=== PATIENT | male | born 1950 | race Caucasian/White ===

== ENCOUNTER → 2017-02-16 | Outpatient (CLI) | payer MEDICARE, MEDICAID ==
[2017-02-16 10:24] LABS: APPEARANCE,URINE CLEAR; BILIRUBIN,URINE NEGATIVE (NEGATIVE); GLUCOSE, URINE NEGATIVE (NEGATIVE); KETONES,URINE NEGATIVE (NEGATIVE); LEUKOCYTE ESTERASE,URINE NEGATIVE (NEGATIVE); NITRITE,URINE NEGATIVE (NEGATIVE); PROTEIN,URINE 100 mg/dL (NEGATIVE); URINE SPECIFIC GRAVITY 1.014; UROBILINOGEN,URINE NEGATIVE mg/dL (<2.0)
[2017-02-16 11:00] LABS: ANION GAP 9 (5-19); BLOOD UREA NITROGEN 24 mg/dL (7-20); CALCIUM 9.6 mg/dL (8.4-10.2); CARBON DIOXIDE 24 mmol/L (22-30); CHLORIDE 109 mmol/L (98-107); CREATININE RESULT 1.28 mg/dL (0.52-1.25); GLUCOSE 92 mg/dL (75-110); POTASSIUM 4.9 mmol/L (3.6-5.0); SODIUM 142.1 mmol/L (137-145)
[2017-02-17 12:38] LABS: CREATININE URINE 109.3 mg/dL (Not Estab.)
== END ==
LOC: OD 09:07
PROVIDERS: ATTEND Internal Medicine Nephrology
DX: I10 Essential (primary) hypertension (principal); R80.1 Persistent proteinuria, unspecified
CPT/HCPCS: 36415; 80048; 81001; 82570; 84156

== ENCOUNTER → 2017-04-19 | Outpatient (CLI) | payer MEDICARE, MEDICAID ==
[2017-04-19 09:58] LABS: APPEARANCE,URINE CLEAR; BILIRUBIN,URINE NEGATIVE (NEGATIVE); GLUCOSE, URINE NEGATIVE (NEGATIVE); KETONES,URINE NEGATIVE (NEGATIVE); LEUKOCYTE ESTERASE,URINE NEGATIVE (NEGATIVE); NITRITE,URINE NEGATIVE (NEGATIVE); PROTEIN,URINE 100 mg/dL (NEGATIVE); URINE SPECIFIC GRAVITY 1.011; UROBILINOGEN,URINE NEGATIVE mg/dL (<2.0)
[2017-04-19 10:13] LABS: URINE CREATININE 89.5 mg/dL (22-328); URINE PROTEIN 180.3 mg/dL (<12)
[2017-04-19 10:27] LABS: ANION GAP 9 (5-19); BLOOD UREA NITROGEN 24 mg/dL (7-20); CALCIUM 9.7 mg/dL (8.4-10.2); CARBON DIOXIDE 25 mmol/L (22-30); CHLORIDE 104 mmol/L (98-107); CREATININE RESULT 1.19 mg/dL (0.52-1.25); GLUCOSE 123 mg/dL (75-110); SODIUM 137.8 mmol/L (137-145)
== END ==
LOC: OD 09:09
PROVIDERS: ATTEND Internal Medicine Nephrology
DX: R80.9 Proteinuria, unspecified (principal); I10 Essential (primary) hypertension
CPT/HCPCS: 36415; 80048; 81001; 82570; 84156

== ENCOUNTER → 2017-06-22 | Outpatient (CLI) | payer MEDICARE, MEDICAID ==
[2017-06-22 11:44] LABS: APPEARANCE,URINE CLEAR; BILIRUBIN,URINE NEGATIVE (NEGATIVE); GLUCOSE, URINE NEGATIVE (NEGATIVE); KETONES,URINE NEGATIVE (NEGATIVE); LEUKOCYTE ESTERASE,URINE NEGATIVE (NEGATIVE); NITRITE,URINE NEGATIVE (NEGATIVE); PROTEIN,URINE 30 mg/dL (NEGATIVE); URINE SPECIFIC GRAVITY 1.004; UROBILINOGEN,URINE NEGATIVE mg/dL (<2.0)
[2017-06-22 12:08] LABS: ANION GAP 8 (5-19); BLOOD UREA NITROGEN 19 mg/dL (7-20); CARBON DIOXIDE 21 mmol/L (22-30); CHLORIDE 100 mmol/L (98-107); CREATININE RESULT 1.13 mg/dL (0.52-1.25); GLUCOSE 105 mg/dL (75-110); POTASSIUM 4.9 mmol/L (3.6-5.0); SODIUM 129.3 mmol/L (137-145)
[2017-06-22 12:09] LABS: URINE CREATININE 29.4 mg/dL (22-328); URINE PROTEIN 56.8 mg/dL (<12)
== END ==
LOC: OD 10:28
PROVIDERS: ATTEND Internal Medicine Nephrology
DX: I10 Essential (primary) hypertension (principal); R80.9 Proteinuria, unspecified
CPT/HCPCS: 36415; 80048; 81001; 82570; 84156

== ENCOUNTER → 2017-06-24 | Outpatient (CLI) | payer MEDICARE, MEDICAID | LOC: OD 12:20 | PROVIDERS: ATTEND Internal Medicine Nephrology | DX: Z53.9 Procedure and treatment not carried out, unspecified reason (principal) ==

== ENCOUNTER 2018-09-05 03:21 | Inpatient (IN) | payer MEDICARE, MEDICAID ==
[2018-09-05] MEDS ORDERED: METHYLPREDNISOLONE INJ 125 MG/2 ML SDV IV ONE (03:26)
[2018-09-05] MEDS ORDERED: IPRATROPIUM/ALBUTEROL 0.5-2.5 MG/3 ML AMPUL NEB ONE (03:26)
[2018-09-05] MEDS: MAGNESIUM SULFATE/D5W 1 GM/100 ML RTUPB IV SCH ×2 (03:47→04:15)
[2018-09-05 03:49] LABS: VENOUS BLOOD BASE EXCESS -3.5 mmol/L; VENOUS BLOOD HCO3 22.3 mmol/L (20-32); VENOUS BLOOD PCO2 42.6 mmHg (35-63); VENOUS BLOOD PH 7.34 (7.30-7.42)
[2018-09-05 03:50] LABS: ABSOLUTE EOSINOPHILS # (AUTO) 0.2 10^3/uL (0.0-0.6); ABSOLUTE LYMPHOCYTES (AUTO) 1.7 10^3/uL (0.5-4.7); ABSOLUTE MONOCYTES (AUTO) 0.8 10^3/uL (0.1-1.4); ABSOLUTE NEUT (AUTO) 6.1 10^3/uL (1.7-8.2); BASOPHILS % (AUTO) 0.5 % (0-2); EOSINOPHILS % (AUTO) 2.5 % (0-6); HEMATOCRIT 39.1 % (37.9-51.0); HEMOGLOBIN 13.2 g/dL (13.5-17.0); LYMPHOCYTES % (AUTO) 19.2 % (13-45); MEAN CORPUSCULAR HGB CONC 33.7 g/dL (32.0-36.0); MEAN CORPUSCULAR VOLUME 98 fl (80-97); MONOCYTES % (AUTO) 8.6 % (3-13); PLATELET COUNT 181 10^3/uL (150-450); RED CELL DISTRIBUTION WIDTH 12.9 % (11.5-14.0); SEGMENTED NEUTROPHILS % (AUTO) 69.2 % (42-78); TOTAL CELLS COUNTED % (AUTO) 100 %; WHITE BLOOD COUNT 8.8 10^3/uL (4.0-10.5)
[2018-09-05 04:04] LABS: ALANINE AMINOTRANSFERASE 46 U/L (21-72); ALBUMIN 3.6 g/dL (3.5-5.0); ALKALINE PHOSPHATASE 103 U/L (38-126); ANION GAP 10 (5-19); ASPARTATE AMINO TRANSFERASE 40 U/L (17-59); BILIRUBIN,DIRECT 0.3 mg/dL (0.0-0.4); BILIRUBIN,TOTAL 0.7 mg/dL (0.2-1.3); BLOOD UREA NITROGEN 25 mg/dL (7-20); CARBON DIOXIDE 21 mmol/L (22-30); CHLORIDE 111 mmol/L (98-107); GLUCOSE 126 mg/dL (75-110); POTASSIUM 4.4 mmol/L (3.6-5.0); SODIUM 141.7 mmol/L (137-145); TOTAL PROTEIN 6.7 g/dL (6.3-8.2)
--- NOTE | 2018-09-05 04:39 | RADIOLOGY REPORT (SQ) ---
CLINICAL HISTORY: dyspnea COMPARISON: None. TECHNIQUE: XR CHEST 1 VIEW 09/05/2018 3:26 AM CDT FINDINGS: Cardiac silhouette is enlarged. There is a large right basilar consolidation. There are small pleural effusions. There is no pneumothorax. There are no acute osseous findings. IMPRESSION: Right basilar pneumonia.
[2018-09-05] MEDS ORDERED: LEVOFLOXACIN 750 MG/D5W RTU 750 MG/150 ML RTUPB IV ONE (04:40)
--- NOTE | 2018-09-05 05:04 | ER Document Report ---
ED General - General Chief Complaint: Breathing Difficulty Stated Complaint: RESPIRATORY DISTRESS Time Seen by Provider: 09/05/18 03:26 Notes: Patient is a 68-year-old male who presents with complaint of difficulty breathing and wheezing. Symptoms started to the. No fevers. No vomiting. No diarrhea. No abdominal pain. He is a smoker. He says he has had similar symptoms once or twice in the past. Paramedics were called. They said his oxygenation was 89-89% on room air however he was in severe distress and his skin was mottled. They therefore gave him a DuoNeb treatment. Denies chest pain. He has no other complaints at this time. TRAVEL OUTSIDE OF THE [place] IN LAST 30 DAYS: No - Related Data Allergies/Adverse Reactions: No Known Allergies Allergy (Unverified 09/05/18 03:59) Past Medical History - Social History Smoking Status: Current Every Day Smoker Chew tobacco use (# tins/day): No Frequency of alcohol use: Occasional Drug Abuse: None Family History: Reviewed & Not Pertinent Patient has suicidal ideation: No Patient has homicidal ideation: No Pulmonary Medical History: Reports: Hx COPD Renal/ Medical History: Denies: Hx Peritoneal Dialysis Past Surgical History: Reports: Hx Abdominal Surgery - CA Review of Systems - Review of Systems Notes: My Normal Review Basic REVIEW OF SYSTEMS: CONSTITUTIONAL : Fever EENT: Denies eye, ear, throat, or mouth pain or symptoms. Denies nasal or sinus congestion. CARDIOVASCULAR: Denies chest pain. RESPIRATORY: Difficulty breathing and wheezing GASTROINTESTINAL: Denies abdominal pain. Denies nausea, vomiting, or diarrhea. MUSCULOSKELETAL: Denies neck or back pain or joint pain or swelling. SKIN: Denies rash or skin lesions. NEUROLOGICAL: Denies altered mental status or loss of consciousness. ALL OTHER SYSTEMS REVIEWED AND NEGATIVE. Physical Exam - Vital signs Vitals: Resp Pulse Ox 22 H 98 09/05/18 03:26 09/05/18 03:26 - Notes Notes: General Appearance: Well nourished, alert, cooperative, moderate acute distress , no obvious discomfort. Vitals: reviewed, See vital signs table. Head: no swelling or tenderness to the head Eyes: PERRL, EOMI, Conjuctiva clear Mouth: No decreasd moisture Throat: No tonsillar inflammation, No airway obstruction, No lymphadenopathy Lungs: Diffuse wheezing with poor air exchange. Has accessory muscle use. Heart: Tachycardic rate, Regular rythm, No murmur, no rub Abdomen: Normal BS, soft, No rigidity, No abdominal tenderness, No guarding, no rebound, no abdominal masses, no organomegaly Extremities: good pulses in all extremities, no swelling or tenderness in the extremities, 1+ bilateral lower extremity edema. Skin: warm, dry, appropriate color, no rash Neuro: speech clear, oriented x 3, normal affect, responds appropriately to questions. Course - Re-evaluation Re-evalutation: 09/05/18 05:07 Patient's breathing is much improved after being placed on the BiPAP. Breathing treatment has helped. Magnesium and solu-Medrol also helped however patient still requiring BiPAP. His chest x-ray shows a pneumonia on the right side. I will give him Levaquin. I am waiting to hear back from the hospitalist to discuss potential admission. Dictation of this chart was performed using voice recognition software; therefore, there may be some unintended grammatical errors. 09/05/18 05:11 I spoke with the hospitalist, Dr. Rudolph, who agrees to evaluate the patient for admission or pass on admission to the day team. - Vital Signs Vital signs: Temp Pulse Resp BP Pulse Ox 23 H 181/69 H 97 09/05/18 04:01 09/05/18 04:00 09/05/18 04:01 - Laboratory Result Diagrams: 09/05/18 03:30 09/05/18 03:30 Laboratory results interpreted by me: 09/05/18 09/05/18 03:30 03:30 RBC 4.00 L Hgb 13.2 L MCV 98 H Chloride 111 H Carbon Dioxide 21 L BUN 25 H Est GFR (Non-Af Amer) 57 L Glucose 126 H - EKG Interpretation by Me Additional EKG results interpreted by me: 09/05/18 04:55 EKG #1 is reviewed and interpreted by me. EKG shows sinus tachycardia with a rate of 106 bpm. Patient has some ST segment depression in the lateral precordial leads with what appears to be LVH. I suspect ST segment depressions chronic related to the LVH. No old EKG for comparison. OH interval, QRS duration, QTc intervals are within normal range. EKG #2 is reviewed and interpreted by me. EKG shows sinus rhythm with rate of 97 bpm. Patient has the same findings of mild ST segment depression in lateral precordial leads with associated LVH. OH interval is slightly prolonged. QRS duration QTc intervals are within normal range. Discharge - Discharge Clinical Impression: COPD (chronic obstructive pulmonary disease) Qualifiers: COPD type: unspecified COPD Qualified Code(s): J44.9 - Chronic obstructive pulmonary disease, unspecified Pneumonia Qualifiers: Pneumonia type: due to unspecified organism Laterality: right Lung location: lower lobe of lung Qualified Code(s): J18.1 - Lobar pneumonia, unspecified organism Condition: Stable Disposition: ADMITTED OBSERVATION Admitting Provider: Hospitalist Unit Admitted: IMCU Referrals: SHANELL BEE MD [Primary Care Provider] - Follow up as needed
[2018-09-05] MEDS ORDERED: ALBUTEROL SULFATE 0.083% NEB 2.5 MG/3 ML AMPUL NEB ONE (05:07)
[2018-09-05] MEDS ORDERED: MAG HYDROX/AL HYDROX/SIMETH SUSP 30 ML UDCUP PO PRN (05:14)
[2018-09-05] MEDS ORDERED: PROMETHAZINE HCL INJ 25 MG/1 ML VIAL IV PRN (05:14)
[2018-09-05] MEDS ORDERED: ACETAMINOPHEN 325 MG TABLET PO PRN (05:14)
[2018-09-05] MEDS ORDERED: IPRATROPIUM/ALBUTEROL 0.5-2.5 MG/3 ML AMPUL NEB PRN (05:14)
[2018-09-05] MEDS ORDERED: PROMETHAZINE HCL 25 MG TABLET PO PRN (05:14)
[2018-09-05] MEDS ORDERED: AZITHROMYCIN INJ 500 MG VIAL IV ONE (05:19)
--- NOTE | 2018-09-05 05:55 | PDOC H&P ---
History of Present Illness Admission Date/PCP: 09/05/18 05:21 SHANELL BEE MD Patient complains of: Shortness of breath History of Present Illness: GERONIMO BROWN is a 68 year old male who comes to the emergency department with symptoms since Wednesday afternoon, initially he was unable to lay flat, later on was noted progressive shortness of breath associated with wheezing, pleuritic chest pain, cough with sputum. Denies fever, chills, nausea or vomiting. Upon arrival of paramedics patient was saturating 89% on room air and was on evidence of respiratory distress, patient was placed on BiPAP and was saturating 98%, upon arrival to our facility the patient was still in respiratory distress and was initiated on BiPAP. Apparently patient has similar symptomatology in the past, denies having asthma or COPD however the patient is active smoker. In the emergency department given DuoNeb nebulizer treatments, IV steroids and IV fluids. By the time I went to evaluate him he is comfortable on BiPAP. Chest x-ray shows right basilar pneumonia. Past Medical History Cardiac Medical History: Reports: Myocardial Infarction - 1979, Hyperlipidema, Hypertension Neurological Medical History: Reports: Ischemic CVA Malignancy Medical History: Reports: Colorectal Cancer - Status post partial colectomy Past Surgical History Past Surgical History: Reports: Other - Partial colectomy 3 years ago for colon cancer Social History Smoking Status: Current Every Day Smoker - 1 pack/day Frequency of Alcohol Use: Heavy - 5-6 beers a day Hx Recreational Drug Use: No Hx Prescription Drug Abuse: No Past Social History Note: Lives with his who is at the bedside Family History Family History: Reviewed & Not Pertinent Family History: Markable for 2 brothers with coronary arterial disease and stents placed Parental Family History Reviewed: Yes - As above Children Family History Reviewed: NA Sibling(s) Family History Reviewed.: NA Medication/Allergy Allergies/Adverse Reactions: No Known Allergies Allergy (Unverified 09/05/18 03:59) Review of Systems Review of Systems: As outlined above, others negative Physical Exam Vital Signs: Temp Pulse Resp BP Pulse Ox 23 H 181/69 H 97 09/05/18 04:01 09/05/18 04:00 09/05/18 04:01 Additional comments: General appearance: Disheveled, alert and cooperative, and appears to be in no acute distress Head: Normocephalic Eyes: PEERL, EOMI, vision is grossly intact. Ears: External auditory canal and tympanic membranes clear, hearing grossly intact. Nose: No nasal discharge. Throat: Oral cavity and pharynx normal. No inflammation, swelling, exudate or lesions. Neck: Neck supple, nontender without lymphadenopathy, masses or thyromegaly. Cardiac: Normal S1 and S2. No S3, S4 or murmurs. Rhythm is regular and tachycardic. There is no peripheral edema, cyanosis or pallor. Extremities are warm and well perfused. Capillary refill is less than 2 seconds. No carotid bruits. Lungs: Patient has bilateral moderate expiratory wheezing with right lower lobe crackles, do not appreciate rhonchi. Not using accessory muscles. Abdomen: Positive bowel sounds. Soft. Nondistended, nontender. No guarding or rebound. No masses. No hepatosplenomegaly Extremities: No significant deformity or joint abnormality. No edema. Peripheral pulses intact. No varicosities. Neurological: Cranial nerves II through XII grossly intact. Strength and sensation symmetric and intact throughout. Reflexes 2+ throughout. Skin: Skin normal color, texture and turgor with no lesions or eruptions, warm and dry. Psychiatric: The mental examination revealed the patient was oriented to person , place, and time. The patient was able to demonstrate good judgment on recent , without hallucinations, abnormal affect or abnormal behaviors. Results Laboratory Results: 09/05/18 09/05/18 09/05/18 03:30 03:30 03:30 WBC 8.8 RBC 4.00 L Hgb 13.2 L Hct 39.1 MCV 98 H MCH 33.0 MCHC 33.7 RDW 12.9 Plt Count 181 Seg Neutrophils % 69.2 Lymphocytes % 19.2 Monocytes % 8.6 Eosinophils % 2.5 Basophils % 0.5 Absolute Neutrophils 6.1 Absolute Lymphocytes 1.7 Absolute Monocytes 0.8 Absolute Eosinophils 0.2 Absolute Basophils 0.0 VBG pH 7.34 VBG pCO2 42.6 VBG HCO3 22.3 VBG Base Excess -3.5 Sodium 141.7 Potassium 4.4 Chloride 111 H Carbon Dioxide 21 L Anion Gap 10 BUN 25 H Creatinine 1.25 Est GFR ( Amer) > 60 Est GFR (Non-Af Amer) 57 L Glucose 126 H Calcium 9.0 Total Bilirubin 0.7 Direct Bilirubin 0.3 AST 40 ALT 46 Alkaline Phosphatase 103 Total Protein 6.7 Albumin 3.6 Impressions: Chest X-Ray 09/05/18 03:26 IMPRESSION: Right basilar pneumonia. Assessment & Plan - Diagnosis (1) Community acquired pneumonia Qualifiers: Laterality: right Lung location: lower lobe of lung Qualified Code(s): J18.1 - Lobar pneumonia, unspecified organism Is this a current diagnosis for this admission?: Yes Plan: Patient comes with progressive respiratory symptoms, chest x-ray shows right basilar pneumonia. We will place the patient on IV Rocephin and IV azithromycin. RT consult. Nebulizer treatments as needed. We will continue for now with BiPAP. Solu-Medrol 60 mg every 8 hours. Incentive spirometry. Pulmonary toilet. Oxygen protocol via nasal cannula when appropriate. Sputum culture. Please follow blood cultures. Patient probably has in addition COPD exacerbation, however he denies having this diagnosis, he might need pulmonary function test. (2) Coronary artery disease Is this a current diagnosis for this admission?: Yes Plan: Continue with home medications. Tells me that he is not taking aspirin because produce rectal bleeding. Last cardiac catheterization 6 months ago which shows mitral regurgitation. (3) Hypertension Is this a current diagnosis for this admission?: Yes Plan: Blood pressure is not well controlled, in the ED 181/69, likely secondary to his acute respiratory distress. Will resume his home antihypertensive and place him on Lopressor IV as needed. (4) Tobacco dependence Is this a current diagnosis for this admission?: Yes Plan: Nicotine patch 21 mg daily. (5) Acute respiratory failure with hypoxia Is this a current diagnosis for this admission?: Yes Plan: Currently on BiPAP - Time Time Spent: 50 to 70 Minutes - Inpatient Certification Based on my medical assessment, after consideration of the patient's comorbidities, presenting symptoms, or acuity I expect that the services needed warrant INPATIENT care.: Yes I certify that my determination is in accordance with my understanding of Medicare's requirements for reasonable and necessary INPATIENT services [42 CFR 412.3e].: Yes Medical Necessity: Risk of Complication if Not Cared For in Hospital
[2018-09-05] MEDS ORDERED: METOPROLOL TARTRATE PF/INJ 5 MG/5 ML SDV IV PRN (05:56)
[2018-09-05] MEDS ORDERED: NICOTINE 21 MG/24 HR PATCH.TD24 TD PRN (05:56)
[2018-09-05] MEDS ORDERED: CEFTRIAXONE 2 GM/D5W RTU 2 GM/50 ML RTUPB IV SCH (06:00)
[2018-09-05] MEDS ORDERED: AZITHROMYCIN 500 MG in DEXTROSE 5%-WATER 250 ML IV ONE (07:00)
[2018-09-05] MEDS: NORMAL SALINE 1000 ML 1,000 ML IV PRN ×2 (07:06→19:30)
[2018-09-05] MEDS: METHYLPREDNISOLONE INJ 125 MG/2 ML SDV IV SCH ×3 (07:31→21:39)
--- NOTE | 2018-09-05 08:10 | EKG REPORT ---
SEVERITY:- ABNORMAL ECG - SINUS TACHYCARDIA PROBABLE LEFT ATRIAL ABNORMALITY LVH WITH SECONDARY REPOLARIZATION ABNORMALITY ANTERIOR Q WAVES, POSSIBLY DUE TO LVH : Confirmed by: Lainey Field 05-Sep-2018 08:09:28
--- NOTE | 2018-09-05 08:10 | EKG REPORT ---
SEVERITY:- ABNORMAL ECG - SINUS RHYTHM LVH WITH SECONDARY REPOLARIZATION ABNORMALITY ANTERIOR Q WAVES, POSSIBLY DUE TO LVH : Confirmed by: Lainey Field 05-Sep-2018 08:09:12
[2018-09-05] MEDS: AZITHROMYCIN 500 MG in DEXTROSE 5%-WATER 250 ML IV SCH (08:46)
[2018-09-05] MEDS: ENOXAPARIN SODIUM INJ 40 MG/0.4 ML DISP.SYRIN SUBCUT SCH (10:18)
[2018-09-05] MEDS: CEFTRIAXONE SODIUM 2,000 MG in DEXTROSE 5%-WATER 100 ML IV SCH (10:19)
[2018-09-05] MEDS ORDERED: LISINOPRIL 30 MG PO SCH (12:00)
[2018-09-05] MEDS ORDERED: ATORVASTATIN CALCIUM 20 MG TABLET PO SCH (12:30)
[2018-09-05] MEDS: ATORVASTATIN CALCIUM 10 MG TABLET PO SCH (12:36)
[2018-09-05] MEDS: LISINOPRIL 10 MG TABLET PO SCH (12:36)
[2018-09-05] MEDS: METOPROLOL SUCCINATE 50 MG TAB.SR.24H PO SCH (12:37)
[2018-09-06 04:46] LABS: ABSOLUTE LYMPHOCYTES (AUTO) 0.7 10^3/uL (0.5-4.7); ABSOLUTE MONOCYTES (AUTO) 0.5 10^3/uL (0.1-1.4); ABSOLUTE NEUT (AUTO) 8.1 10^3/uL (1.7-8.2); BASOPHILS % (AUTO) 0.2 % (0-2); HEMATOCRIT 35.2 % (37.9-51.0); LYMPHOCYTES % (AUTO) 7.1 % (13-45); MEAN CORPUSCULAR HEMOGLOBIN 33.1 pg (27.0-33.4); MEAN CORPUSCULAR VOLUME 97 fl (80-97); MONOCYTES % (AUTO) 5.2 % (3-13); PLATELET COUNT 143 10^3/uL (150-450); RED BLOOD COUNT 3.61 10^6/uL (4.35-5.55); RED CELL DISTRIBUTION WIDTH 13.1 % (11.5-14.0); SEGMENTED NEUTROPHILS % (AUTO) 87.5 % (42-78); TOTAL CELLS COUNTED % (AUTO) 100 %; WHITE BLOOD COUNT 9.3 10^3/uL (4.0-10.5)
[2018-09-06 05:05] LABS: ALANINE AMINOTRANSFERASE 38 U/L (21-72); ALBUMIN 2.9 g/dL (3.5-5.0); ALKALINE PHOSPHATASE 75 U/L (38-126); ANION GAP 8 (5-19); ASPARTATE AMINO TRANSFERASE 30 U/L (17-59); BILIRUBIN,TOTAL 0.4 mg/dL (0.2-1.3); BLOOD UREA NITROGEN 26 mg/dL (7-20); CALCIUM 8.9 mg/dL (8.4-10.2); CARBON DIOXIDE 20 mmol/L (22-30); CHLORIDE 110 mmol/L (98-107); GLUCOSE 138 mg/dL (75-110); SODIUM 137.5 mmol/L (137-145)
[2018-09-06 05:06] LABS: BILIRUBIN,DIRECT 0.1 mg/dL (0.0-0.4); TOTAL PROTEIN 5.7 g/dL (6.3-8.2)
[2018-09-06] MEDS: METHYLPREDNISOLONE INJ 125 MG/2 ML SDV IV SCH ×2 (05:45→15:46)
[2018-09-06] MEDS: NORMAL SALINE 1000 ML 1,000 ML IV PRN (05:45)
[2018-09-06] MEDS: AZITHROMYCIN 500 MG in DEXTROSE 5%-WATER 250 ML IV SCH (07:54)
[2018-09-06] MEDS: CEFTRIAXONE SODIUM 2,000 MG in DEXTROSE 5%-WATER 100 ML IV SCH (10:57)
[2018-09-06] MEDS: ENOXAPARIN SODIUM INJ 40 MG/0.4 ML DISP.SYRIN SUBCUT SCH (10:57)
[2018-09-06] MEDS: LISINOPRIL 10 MG TABLET PO SCH (10:57)
[2018-09-06] MEDS: ATORVASTATIN CALCIUM 10 MG TABLET PO SCH (10:58)
[2018-09-06] MEDS: METOPROLOL SUCCINATE 50 MG TAB.SR.24H PO SCH (10:58)
--- NOTE | 2018-09-06 15:33 | PDOC PROGRESS REPORT ---
Subjective Progress Note for:: 09/06/18 Subjective:: Mr. Dahl is a 68 year old male with a PMHhypertension, colon CA with prior colectomy history of CVA, CAD, mitral regurgitation hypertension and hyperlipidemia who presented with progressive SOB, wheezing and productive cough. He was found to have right lower lobe consolidation on chest x-ray and was initially placed on BIPAP. He denies previous diagnosis of COPD or asthma. No acute event overnight. He says he feels better today and his breathing has significantly improved. He is saturating well on 2L of nasal cannula. Denies chest pain. Reason For Visit: CAP Physical Exam Vital Signs: Temp Pulse Resp BP Pulse Ox 97.9 F 72 20 149/59 H 93 09/06/18 11:30 09/06/18 11:30 09/06/18 11:30 09/06/18 11:30 09/06/18 11:30 Intake & Output 09/05/18 09/06/18 09/07/18 06:59 06:59 06:59 Intake Total 3325 587 Output Total 160 Balance 3165 587 Weight 193 lb 9.054 oz General appearance: PRESENT: no acute distress, well-developed, well-nourished Head exam: PRESENT: atraumatic, normocephalic Eye exam: PRESENT: conjunctiva pink, EOMI, PERRLA. ABSENT: scleral icterus Ear exam: PRESENT: normal external ear exam Mouth exam: PRESENT: moist, tongue midline Neck exam: ABSENT: carotid bruit, JVD, lymphadenopathy, thyromegaly Respiratory exam: PRESENT: crackles - crackles on the right base, rhonchi. ABSENT: rales, wheezes Cardiovascular exam: PRESENT: RRR. ABSENT: diastolic murmur, rubs, systolic murmur Pulses: PRESENT: normal dorsalis pedis pul Vascular exam: PRESENT: normal capillary refill GI/Abdominal exam: PRESENT: normal bowel sounds, soft. ABSENT: distended, guarding, mass, organolmegaly, rebound, tenderness Rectal exam: PRESENT: deferred Extremities exam: PRESENT: full ROM. ABSENT: calf tenderness, clubbing, pedal edema Neurological exam: PRESENT: alert, awake, oriented to person, oriented to place , oriented to time, oriented to situation, CN II-XII grossly intact. ABSENT: motor sensory deficit Results Laboratory Results: 09/06/18 04:37 09/06/18 04:37 09/06/18 09/06/18 04:37 04:37 WBC 9.3 RBC 3.61 L Hgb 12.0 L Hct 35.2 L MCV 97 MCH 33.1 MCHC 34.0 RDW 13.1 Plt Count 143 L Seg Neutrophils % 87.5 H Lymphocytes % 7.1 L Monocytes % 5.2 Eosinophils % 0.0 Basophils % 0.2 Absolute Neutrophils 8.1 Absolute Lymphocytes 0.7 Absolute Monocytes 0.5 Absolute Eosinophils 0.0 Absolute Basophils 0.0 Sodium 137.5 Potassium 5.0 Chloride 110 H Carbon Dioxide 20 L Anion Gap 8 BUN 26 H Creatinine 1.19 Est GFR ( Amer) > 60 Est GFR (Non-Af Amer) > 60 Glucose 138 H Calcium 8.9 Total Bilirubin 0.4 AST 30 ALT 38 Alkaline Phosphatase 75 Total Protein 5.7 L Albumin 2.9 L Impressions: Chest X-Ray 09/05/18 03:26 IMPRESSION: Right basilar pneumonia. Assessment & Plan - Diagnosis (1) Community acquired pneumonia Qualifiers: Laterality: right Lung location: lower lobe of lung Qualified Code(s): J18.1 - Lobar pneumonia, unspecified organism Is this a current diagnosis for this admission?: Yes Plan: Chest x-ray shows right lower lobe consolidation. Patient does not have recent hospitalization. He has been off BIPAP and is now saturating well on 2lpm via NC. He did have wheezing upon presentation but denies previous COPD diagnosis. Continue breathing treatments and antibiotics. Wean off O2 today as tolerated. Switch solumedrol to prednisone. (2) Hypertension Is this a current diagnosis for this admission?: Yes Plan: BP runing in the 140/80s. Continue lisinopril and lopressor. - Time Time Spent with patient: 15-24 minutes
[2018-09-06] MEDS: PREDNISONE 20 MG TABLET PO SCH (17:14)
[2018-09-07] MEDS ORDERED: AZITHROMYCIN 250 MG TABLET PO SCH (08:00)
[2018-09-07 08:58] VITALS: BP 155/48
[2018-09-07] MEDS: ENOXAPARIN SODIUM INJ 40 MG/0.4 ML DISP.SYRIN SUBCUT SCH (09:02)
[2018-09-07] MEDS: METOPROLOL SUCCINATE 50 MG TAB.SR.24H PO SCH (09:03)
[2018-09-07] MEDS: LISINOPRIL 10 MG TABLET PO SCH (09:03)
[2018-09-07] MEDS: PREDNISONE 20 MG TABLET PO SCH (09:03)
[2018-09-07] MEDS: ATORVASTATIN CALCIUM 10 MG TABLET PO SCH (09:03)
[2018-09-07] MEDS: CEFTRIAXONE SODIUM 2,000 MG in DEXTROSE 5%-WATER 100 ML IV SCH (09:03)
--- NOTE | 2018-09-07 09:28 | RADIOLOGY REPORT (SQ) ---
EXAM DESCRIPTION: CHEST SINGLE VIEW COMPLETED DATE/TIME: 09/07/2018 8:07 am REASON FOR STUDY: reasses consolidn COMPARISON: 09/05/2018 AP chest EXAM PARAMETERS: NUMBER OF VIEWS: One view. TECHNIQUE: Single frontal radiographic view of the chest acquired. RADIATION DOSE: NA LIMITATIONS: None. FINDINGS: LUNGS AND PLEURA: Increasing consolidation at the right lung base worrisome for pneumonia. There is now patchy right upper lobe airspace disease. There is now a small right pleural effusion. There are Sanjana lines at both lung bases worrisome for interstitial edema/fluid overload. MEDIASTINUM AND HILAR STRUCTURES: No masses. Contour normal. HEART AND VASCULAR STRUCTURES: Stable mild to moderate cardiomegaly BONES: No acute findings. HARDWARE: None in the chest. OTHER: No other significant finding. IMPRESSION: Increasing right lung consolidation worrisome for pneumonia. New small right pleural effusion Persistent Sanjana lines at both lung bases worrisome for fluid overload or interstitial edema TECHNICAL DOCUMENTATION: JOB ID: [id number] [employer]- All Rights Reserved Reading location - IP/workstation name: [email or web address]
--- NOTE | 2018-09-07 14:25 | PDOC DISCHARGE SUMMARY ---
General - Admit/Disc Date/PCP Admission Date/Primary Care Provider: 09/05/18 05:21 SHANELL BEE MD Discharge Date: 09/07/18 - Discharge Diagnosis (1) Community acquired pneumonia Is this a current diagnosis for this admission?: Yes (2) Hypertension Is this a current diagnosis for this admission?: Yes - Additional Information Prescriptions: Levofloxacin [Levaquin 750 mg Tablet] 750 mg PO DAILY 5 Days #5 tablet Lisinopril [Prinivil] 30 mg PO DAILY #30 tablet Metoprolol Succinate [Toprol XL 100 mg Tablet] 100 mg PO DAILY #30 tab.sr.24h Prednisone [Deltasone 20 mg Tablet] 20 mg PO BID 3 Days #6 tablet Home Medications: Atorvastatin Calcium [Lipitor 20 mg Tablet] 10 mg PO DAILY 09/05/18 Multivitamin [Tab-A-Rosendo (Multiple Vitamin) Tablet] 1 tab PO DAILY 09/05/18 Tizanidine HCl 4 mg PO Q8 PRN 09/05/18 Levofloxacin [Levaquin 750 mg Tablet] 750 mg PO DAILY 5 Days #5 tablet 09/07/18 Lisinopril [Prinivil] 30 mg PO DAILY #30 tablet 09/07/18 Metoprolol Succinate [Toprol XL 100 mg Tablet] 100 mg PO DAILY #30 tab.sr.24h Prednisone [Deltasone 20 mg Tablet] 20 mg PO BID 3 Days #6 tablet 09/07/18 History of Present Illness History of Present Illness: GERONIMO BROWN is a 68 year old male who comes to the emergency department with symptoms since Wednesday afternoon, initially he was unable to lay flat, later on was noted progressive shortness of breath associated with wheezing, pleuritic chest pain, cough with sputum. Denies fever, chills, nausea or vomiting. Upon arrival of paramedics patient was saturating 89% on room air and was on evidence of respiratory distress, patient was placed on BiPAP and was saturating 98%, upon arrival to our facility the patient was still in respiratory distress and was initiated on BiPAP. Apparently patient has similar symptomatology in the past, denies having asthma or COPD however the patient is active smoker. In the emergency department given DuoNeb nebulizer treatments, IV steroids and IV fluids. Hospital Course Hospital Course: Mr. Brown is a 68 year old male with a PMH of hypertension, colon CA with prior colectomy, history of CVA, CAD, mitral regurgitation hypertension and hyperlipidemia who presented with progressive SOB, wheezing and productive cough. He was found to have right lower lobe consolidation on chest x-ray and was initially placed on BIPAP. He denies previous diagnosis of COPD or asthma. He was given Rocephin and azithromycin in the ER and was continued on IV Levaquin. He was switched to nasal cannula. He clinically improved and he was easily weaned off O2 support the next day. He was ambulating fine with no desaturation. He will be sent home on 5 more days of PO Levaquin. He will follow -up with his PCP next for a repeat CXR. Physical Exam Vital Signs: Temp Pulse Resp BP Pulse Ox 97.6 F 71 16 155/48 H 96 09/07/18 07:54 09/07/18 07:54 09/07/18 07:54 09/07/18 07:54 09/07/18 07:54 Intake & Output 09/06/18 09/07/18 09/08/18 06:59 06:59 06:59 Intake Total 3325 3078 100 Output Total 160 Balance 3165 3078 100 Weight 195 lb 5.273 oz General appearance: PRESENT: no acute distress, well-developed, well-nourished Head exam: PRESENT: atraumatic, normocephalic Eye exam: PRESENT: conjunctiva pink, EOMI, PERRLA. ABSENT: scleral icterus Ear exam: PRESENT: normal external ear exam Mouth exam: PRESENT: moist, tongue midline Neck exam: ABSENT: carotid bruit, JVD, lymphadenopathy, thyromegaly Respiratory exam: PRESENT: rales - rales on the right base (significantly improved from yesterday). ABSENT: rhonchi, wheezes Cardiovascular exam: PRESENT: RRR. ABSENT: diastolic murmur, rubs, systolic murmur Pulses: PRESENT: normal dorsalis pedis pul GI/Abdominal exam: PRESENT: normal bowel sounds, soft. ABSENT: distended, guarding, mass, organolmegaly, rebound, tenderness Rectal exam: PRESENT: deferred Neurological exam: PRESENT: alert, awake, oriented to person, oriented to place , oriented to time, oriented to situation, CN II-XII grossly intact. ABSENT: motor sensory deficit Results Laboratory Results: 09/06/18 04:37 09/06/18 04:37 Impressions: Chest X-Ray 09/07/18 07:00 IMPRESSION: Increasing right lung consolidation worrisome for pneumonia. New small right pleural effusion Persistent Sanjana lines at both lung bases worrisome for fluid overload or interstitial edema Qualifiers - * PATIENT BEING DISCHARGED WITH ANY OF THE FOLLOWING DIAGNOSIS: No
== END 2018-09-07 11:28 | disposition home or self-care (01) | DRG 194 ==
LOC: ER 03:21 → OBSVTOIN 05:21 → EH 05:21 → 3S 06:46 → 3N 13:45
PROVIDERS: ADMIT Internal Medicine; ATTEND Internal Medicine
PROC: 5A09457 Assistance with Respiratory Ventilation, 24-96 Consecutive Hours, Continuous Positive Airway Pressure (ICD-10-PCS; principal; 2018-09-05)
PROC: 3E0F73Z Introduction of Anti-inflammatory into Respiratory Tract, Via Natural or Artificial Opening (ICD-10-PCS; 2018-09-05)
DX: J18.1 Lobar pneumonia, unspecified organism (principal); J44.0 Chronic obstructive pulmonary disease with (acute) lower respiratory infection; I10 Essential (primary) hypertension; I25.10 Atherosclerotic heart disease of native coronary artery without angina pectoris; I34.0 Nonrheumatic mitral (valve) insufficiency; E78.00 Pure hypercholesterolemia, unspecified; F17.210 Nicotine dependence, cigarettes, uncomplicated; I25.2 Old myocardial infarction; Z79.899 Other long term (current) drug therapy; Z85.038 Personal history of other malignant neoplasm of large intestine; Z90.49 Acquired absence of other specified parts of digestive tract; Z86.73 Personal history of transient ischemic attack (TIA), and cerebral infarction without residual deficits; Z82.49 Family history of ischemic heart disease and other diseases of the circulatory system
CPT/HCPCS: 36415; 71045; 80053; 82803; 85025; 87040; 87070; 87205; 93005; 93010; 94640; 94660; 94799; 96365; 96375; 99285; J0456; J0696; J1650; J1956; J2930; J3475; J7030; J7060; J7512; J7620

== ENCOUNTER 2020-03-10 12:40 | Inpatient (IN) | payer MEDICARE, MEDICAID ==
[2020-03-10 12:58] LABS: ABSOLUTE LYMPHOCYTES (AUTO) 0.9 10^3/uL (0.5-4.7); ABSOLUTE MONOCYTES (AUTO) 0.5 10^3/uL (0.1-1.4); ABSOLUTE NEUT (AUTO) 6.9 10^3/uL (1.7-8.2); BASOPHILS % (AUTO) 0.4 % (0-2); HEMATOCRIT 30.6 % (37.9-51.0); HEMOGLOBIN 10.6 g/dL (13.5-17.0); LYMPHOCYTES % (AUTO) 11.3 % (13-45); MEAN CORPUSCULAR HEMOGLOBIN 34.5 pg (27.0-33.4); MEAN CORPUSCULAR HGB CONC 34.7 g/dL (32.0-36.0); MEAN CORPUSCULAR VOLUME 100 fl (80-97); PLATELET COUNT 164 10^3/uL (150-450); RED BLOOD COUNT 3.07 10^6/uL (4.35-5.55); RED CELL DISTRIBUTION WIDTH 12.5 % (11.5-14.0); SEGMENTED NEUTROPHILS % (AUTO) 82.3 % (42-78); TOTAL CELLS COUNTED % (AUTO) 100 %; WHITE BLOOD COUNT 8.4 10^3/uL (4.0-10.5)
[2020-03-10 13:02] LABS: ARTERIAL BLOOD BASE EXCESS -10.8 mmol/L; ARTERIAL BLOOD H2CO3 0.73 mmol/L (1.05-1.35); ARTERIAL BLOOD HCO3 13.2 mmol/L (20-24); ARTERIAL BLOOD O2 SATURATION 98.6 % (94-98); ARTERIAL BLOOD PCO2 24.4 mmHg (35-45); ARTERIAL BLOOD PH 7.35 (7.35-7.45); ARTERIAL BLOOD PO2 131.1 mmHg (80-100); ARTERIAL BLOOD TOTAL CO2 13.9 mmol/L (23-27)
[2020-03-10] MEDS ORDERED: ALBUTEROL SULFATE 0.083% NEB 2.5 MG/3 ML AMPUL NEB ONE (13:04)
--- NOTE | 2020-03-10 13:13 | RADIOLOGY REPORT (SQ) ---
EXAM DESCRIPTION: CHEST SINGLE VIEW IMAGES COMPLETED DATE/TIME: 03/10/2020 1:02 pm REASON FOR STUDY: sob COMPARISON: 09/07/2018. EXAM PARAMETERS: NUMBER OF VIEWS: One view. TECHNIQUE: Single frontal radiographic view of the chest acquired. RADIATION DOSE: NA LIMITATIONS: None. FINDINGS: LUNGS AND PLEURA: Chronic interstitial changes. Basilar airspace disease, interval increa se in the left lung base. Presumed right pleural effusion unchanged. MEDIASTINUM AND HILAR STRUCTURES: No masses. Contour normal. HEART AND VASCULAR STRUCTURES: Heart normal in size. Normal vasculature. BONES: No acute findings. HARDWARE: None in the chest. OTHER: No other significant finding. IMPRESSION: BASILAR AIRSPACE DISEASE, INTERVAL WORSENING IN THE LEFT LUNG BASE. TECHNICAL DOCUMENTATION: JOB ID: [id number] [employer]- All Rights Reserved Reading location - IP/workstation name: [facility]
[2020-03-10 13:18] LABS: ARTERIAL BLOOD FIO2 45%
[2020-03-10 13:19] LABS: ALBUMIN 3.4 g/dL (3.5-5.0); ALKALINE PHOSPHATASE 152 U/L (38-126); ANION GAP 13 (5-19); BILIRUBIN,DIRECT 0.5 mg/dL (0.0-0.4); BILIRUBIN,TOTAL 1.3 mg/dL (0.2-1.3); BLOOD UREA NITROGEN 57 mg/dL (7-20); CALCIUM 8.9 mg/dL (8.4-10.2); CARBON DIOXIDE 18 mmol/L (22-30); CHLORIDE 98 mmol/L (98-107); CREATINE KINASE 64 U/L (55-170); GLUCOSE 169 mg/dL (75-110); POTASSIUM 5.2 mmol/L (3.6-5.0); TOTAL PROTEIN 6.7 g/dL (6.3-8.2)
[2020-03-10 13:26] LABS: ASPARTATE AMINO TRANSFERASE 1225 U/L (17-59)
[2020-03-10 13:31] LABS: CREATINE KINASE MB 5.13 ng/mL (<4.55)
[2020-03-10 13:37] LABS: TROPONIN I 1.57 ng/mL
[2020-03-10] MEDS ORDERED: LEVOFLOXACIN 750 MG/D5W RTU 750 MG/150 ML RTUPB IV ONE (13:39)
--- NOTE | 2020-03-10 13:48 | ER Document Report ---
Entered by LEILA RAMOS SCRIBE 03/10/20 1250 Acting as scribe for:COLEMAN FRANCISCO MD ED Respiratory Problem - General Chief Complaint: Respiratory Distress Stated Complaint: RESPIRATORY Mode of Arrival: Medic Information source: Patient, Emergency Med Personnel, [facility] Records Notes: This 69-year-old COPD patient comes emergency room complaint of respiratory distress. States is been getting worse for the past several days. He was seen at an urgent care on 03/07/2020, put on prednisone and cefdinir. He states he has continued to get worse. Patient reports he did have COVID-19 testing done in the office on . He was here on 09/05/2018 with similar presentation and improved quite well on BiPAP in the emergency room. He was placed on BiPAP when he arrived by EMS, and within just a few minutes his color is looking better, his oxygen saturation is 100%, and he states that his breathing does seem to feel a little bit better. TRAVEL OUTSIDE OF THE [place] IN LAST 30 DAYS: No - Related Data Allergies/Adverse Reactions: aspirin Adverse Reaction (Verified 09/05/18 08:23) Past Medical History - General Information source: Patient, Emergency Med Personnel - Social History Smoking Status: Current Every Day Smoker Cigarette use (# per day): Yes - 1 ppd Frequency of alcohol use: Heavy Drug Abuse: None Family History: Reviewed & Not Pertinent - Past Medical History Cardiac Medical History: Reports: Hx Heart Attack - 1979, Hx Hypercholesterolemia, Hx Hypertension Pulmonary Medical History: Reports: Hx COPD Renal/ Medical History: Denies: Hx Peritoneal Dialysis Malignancy Medical History: Reports Hx Colorectal Cancer - Status post partial colectomy Past Surgical History: Reports: Hx Abdominal Surgery - CA, Other - Partial colectomy 3 years ago for colon cancer Review of Systems - Review of Systems Constitutional: No symptoms reported EENT: No symptoms reported Cardiovascular: No symptoms reported Respiratory: See HPI, Cough, Short of breath Gastrointestinal: No symptoms reported Genitourinary: No symptoms reported Male Genitourinary: No symptoms reported Musculoskeletal: No symptoms reported Skin: No symptoms reported Hematologic/Lymphatic: No symptoms reported Neurological/Psychological: No symptoms reported -: Yes All other systems reviewed and negative Physical Exam - Vital signs Vitals: Resp 24 H 03/10/20 12:43 Interpretation: Normal - General General appearance: Appears well, Alert - HEENT Head: Normocephalic, Atraumatic Eyes: Normal Pupils: PERRL - Respiratory Respiratory status: Respiratory distress, Tripod position Breath sounds: Decreased air movement, Rhonchi, Other - distant breath sounds - Cardiovascular Rhythm: Regular Heart sounds: Normal auscultation Murmur: No - Abdominal Inspection: Normal Distension: No distension Bowel sounds: Normal Tenderness: Nontender Organomegaly: No organomegaly - Back Back: Normal, Nontender - Extremities General upper extremity: Normal inspection, Nontender, Normal ROM General lower extremity: Edema - 2+ bilaterally - Neurological Neuro grossly intact: Yes Cognition: Normal Orientation: AAOx4 Ez Coma Scale Eye Opening: Spontaneous [place] Coma Scale Verbal: Oriented [place] Coma Scale Motor: Obeys Commands Ez Coma Scale Total: 15 Speech: Normal - Psychological Associated symptoms: Normal affect, Normal mood - Skin Skin Temperature: Warm Skin Moisture: Dry Skin Color: Normal Course - Vital Signs Vital signs: Temp Pulse Resp BP Pulse Ox 98.4 F 22 H 171/73 H 99 03/10/20 12:53 03/10/20 18:01 03/10/20 18:01 03/10/20 18:01 - Laboratory Result Diagrams: 03/10/20 12:44 03/10/20 12:44 Laboratory results interpreted by me: 03/10/20 03/10/20 03/10/20 12:44 12:44 12:44 RBC 3.07 L Hgb 10.6 L Hct 30.6 L MCV 100 H MCH 34.5 H Lymph % (Auto) 11.3 L Seg Neutrophils % 82.3 H D-Dimer Carbonic Acid ABG pCO2 ABG pO2 ABG HCO3 ABG Total CO2 ABG O2 Saturation Sodium 128.5 L Potassium 5.2 H Carbon Dioxide 18 L BUN 57 H Creatinine 1.98 H Est GFR ( Amer) 41 L Est GFR (MDRD) Non-Af 34 L Glucose 169 H Ferritin Direct Bilirubin 0.5 H AST 1225 H ALT 857 H Alkaline Phosphatase 152 H CK-MB (CK-2) 5.13 H NT-Pro-B Natriuret Pep 215922 H Albumin 3.4 L Urine Protein Urine Glucose (UA) Urine Ketones Urine Blood Urine Urobilinogen 03/10/20 03/10/20 03/10/20 12:44 12:44 12:44 RBC Hgb Hct MCV MCH Lymph % (Auto) Seg Neutrophils % D-Dimer 3.41 H Carbonic Acid 0.73 L ABG pCO2 24.4 L ABG pO2 131.1 H ABG HCO3 13.2 L ABG Total CO2 13.9 L ABG O2 Saturation 98.6 H Sodium Potassium Carbon Dioxide BUN Creatinine Est GFR ( Amer) Est GFR (MDRD) Non-Af Glucose Ferritin 985.00 H Direct Bilirubin AST ALT Alkaline Phosphatase CK-MB (CK-2) NT-Pro-B Natriuret Pep Albumin Urine Protein Urine Glucose (UA) Urine Ketones Urine Blood Urine Urobilinogen 03/10/20 13:51 RBC Hgb Hct MCV MCH Lymph % (Auto) Seg Neutrophils % D-Dimer Carbonic Acid ABG pCO2 ABG pO2 ABG HCO3 ABG Total CO2 ABG O2 Saturation Sodium Potassium Carbon Dioxide BUN Creatinine Est GFR ( Amer) Est GFR (MDRD) Non-Af Glucose Ferritin Direct Bilirubin AST ALT Alkaline Phosphatase CK-MB (CK-2) NT-Pro-B Natriuret Pep Albumin Urine Protein >=500 H Urine Glucose (UA) 50 H Urine Ketones 20 H Urine Blood SMALL H Urine Urobilinogen 2.0 H - Diagnostic Test Radiology reviewed: Image reviewed, Reports reviewed - Chest x-ray shows bibasilar airspace disease, right pleural effusion, chronic interstitial scarring. Unable to tell how much of the findings in the right lower lung are chronic, as no interval chest x-rays were done since the chest x-ray done when he was admitted here on 09/06/2018. - EKG Interpretation by Me EKG shows normal: Sinus rhythm, [place], Intervals, ST-T Waves. abnormal: QRS Complexes - Anterior Q waves probably due to LVH Rate: Tachycardia - 114 Voltage: Consistant with LVH - LVH with secondary repolarization abnormalities. When compared to previous EKG there are: No significant change - Consults LEX Greene Time consulted: 14:00 Consulted provider: will come to ER - The ICU med spec did come to see the patient and evaluated him. He agrees to admit the patient to the intensive care unit here. Critical Care Note - Critical Care Note Total time excluding time spent on procedures (mins): 55 Discharge - Discharge Clinical Impression: Acute exacerbation of chronic obstructive pulmonary disease (COPD), Bibasilar airspace disease, Dehydration, Elevated liver enzymes, Elevated d-dimer, Elevated ferritin level, Elevated troponin level, Elevated brain natriuretic peptide (BNP) level, Suspected severe acute respiratory syndrome coronavirus 2 (SARS-CoV-2) infection Condition: Fair Disposition: ADMITTED INPATIENT Admitting Provider: LEX Greene Unit Admitted: ICU I personally performed the services described in the documentation, reviewed and edited the documentation which was dictated to the scribe in my presence, and it accurately records my words and actions.
[2020-03-10 13:49] LABS: INTERNATIONAL RATION (INR) 1.14; PROTHROMBIN TIME 14.7 SEC (11.4-15.4)
[2020-03-10 13:51] LABS: D-DIMER 3.41 ug/mL (0.00-0.50)
[2020-03-10 14:35] LABS: APPEARANCE,URINE SLIGHTLY-CLOUDY; BILIRUBIN,URINE NEGATIVE (NEGATIVE); COLOR,URINE AMBER; GLUCOSE, URINE 50 mg/dL (NEGATIVE); KETONES,URINE 20 mg/dL (NEGATIVE); LEUKOCYTE ESTERASE,URINE NEGATIVE (NEGATIVE); NITRITE,URINE NEGATIVE (NEGATIVE); PROTEIN,URINE >=500 mg/dL (NEGATIVE); URINE SPECIFIC GRAVITY 1.022
[2020-03-10] MEDS ORDERED: METOLAZONE 5 MG TABLET NG ONE (20:55)
[2020-03-10] MEDS ORDERED: FUROSEMIDE INJ/PF 40 MG/4 ML SDV IV SCH (22:00)
--- NOTE | 2020-03-10 23:02 | CRITICAL CARE ADMISSION REPORT ---
HPI Date:: 03/10/20 Time:: 21:30 Reason for ICU Reason:: Acute on chronic respiratory failure HPI: Mr. Dahl is a 71-year-old male with a past medical history of end-stage COPD, previous CT in 1979, hypertension on lisinopril and metoprolol at home, and a history of colon cancer partial colectomy 3 years ago. Mr. Dahl presented to the ED via EMS today with complaints of shortness of breath, he was recently seen at an urgent care center where he COVID test was sent, these results are not available at this time. Upon arrival to patient's home EMS stated that his O2 sat was 89% on room air and became increasingly hypoxic on exertion. Twelve- lead EKG was done in the ambulance and was negative for STEMI. He was placed on BiPAP in the ER with the following settings inspiratory pressure 12 expiratory pressure of 6 rate of 6 FiO2 40%. Labs obtained in the ED shows no leukocytosis white count of 8.4's H&H 10.6 and 30.6 respectively, sodium 128 potassium 5.2 BUN 57 creatinine 1.98 he does have a transaminitis with an AST of 1225 ALT of 857 alk phos of 152 his troponins are elevated at 1.57 and his BN P is elevated at 152,000. ABGs on the previously mentioned BiPAP settings pH of 7.35 PCO2 24.4 PO2 131 HCO3 13.2. He does have an elevated d-dimer at 3.41 and an elevated ferritin level at 985. He is admitted to the ICU for further management of his acute on chronic respiratory failure COVID rule out. Given his highly elevated BNP as well as a transaminitis I am concerned that this is right-sided heart failure rather than COPD exacerbation, or COVID. We will maintain his droplet precautions until his COVID test returns. - Diagnosis/Plan (1) Acute and chronic respiratory failure Qualifiers: Respiratory failure complication: hypoxia and hypercapnia Qualified Code(s): J96.21 - Acute and chronic respiratory failure with hypoxia; J96.22 - Acute and chronic respiratory failure with hypercapnia Is this a current diagnosis for this admission?: Yes (2) Elevated brain natriuretic peptide (BNP) level Is this a current diagnosis for this admission?: Yes (4) Suspected severe acute respiratory syndrome coronavirus 2 (SARS-CoV-2) infection Is this a current diagnosis for this admission?: Yes (5) Hypertension Qualifiers: Hypertension type: essential hypertension Qualified Code(s): I10 - Essential (primary) hypertension Is this a current diagnosis for this admission?: Yes - . Plan Summary: 69-year-old male admitted with acute on chronic respiratory failure secondary to COPD exacerbation versus COVID versus right-sided heart failure Neuro: Awake alert and oriented x3 No focal deficits Pulmonary: Acute on chronic respiratory failure will maintain on BiPAP at current settings Chest x-ray in a.m. DuoNebs every 6 hours and as needed COVID test pending ABG now Cardiovascular: History of CT in 1979 we will hold off on statin given elevated liver enzymes Hypertension-we will restart home dose Toprol XL 100 mg daily, hold lisinopril in setting of MARTHA Given his elevated BNP of 152,000 and his transaminitis I am concerned for right-sided heart failure I will therefore diurese with 40 of Lasix now and twice daily Transthoracic echo in the morning Repeat BN P with morning labs Renal: MARTHA with a creatinine of 1.98 his baseline is 1.0-1.25 this may be cardiorenal will continue to diurese with 40 mg of Lasix every [address] [place] for strict PAUL CMP in the a.m. Sodium level 128 this is also consistent with cardiorenal we will continue to monitor Gastrointestinal: Transaminitis AST 1225 ALT 857 alk phos 152 total total bilirubin 1.3 direct bilirubin 0.5 this is most likely secondary to right-sided heart failure Does have hepatomegaly most likely from congestion Keep n.p.o. for now while on BiPAP Protonix for GI prophylaxis Hematology: H&H 10.6 and 30.6 respectively anemia may be dilutional given his severe volume overload we will continue to monitor, his baseline hemoglobin is 12-13.2 Elevated ferritin level of 985 this can be seen with COVID patient's although he does not have a significant lymphocytic anemia which would also be seen in COVID Heparin subq for VTE prophylaxis Endocrine: No history of diabetes Glucose level today in the ED was 169 may be steroid induced as patient was just started on prednisone by the urgent care center We will continue to monitor Infectious disease: Patient is a COVID rule out will need to call urgent care tomorrow for test results No leukocytosis Afebrile We will hold off on antibiotics for now he was given 1 dose of levofloxacin in the ED Code status: Patient is a full code Disposition: Continue ICU care Past Medical History Cardiac Medical History: Reports: Myocardial Infarction - 1979, Hyperlipidema, Hypertension Pulmonary Medical History: Reports: Chronic Obstructive Pulmonary Disease (COPD) Malignancy Medical History: Reports: Colorectal Cancer - Status post partial colectomy Past Surgical History Past Surgical History: Reports: Other - Partial colectomy 3 years ago for colon cancer Social/Family History - Social History Smoking Status: Current Every Day Smoker Frequency of Alcohol Use: Heavy Hx Recreational Drug Use: No Drugs: None Hx Prescription Drug Abuse: No - Medication/Allergies Home Medications: Atorvastatin Calcium [Lipitor 20 mg Tablet] 10 mg PO DAILY 09/05/18 Multivitamin [Tab-A-Rosendo (Multiple Vitamin) Tablet] 1 tab PO DAILY 09/05/18 Tizanidine HCl 4 mg PO Q8 PRN 09/05/18 Levofloxacin [Levaquin 750 mg Tablet] 750 mg PO DAILY 5 Days #5 tablet 09/07/18 Lisinopril [Prinivil] 30 mg PO DAILY #30 tablet 09/07/18 Metoprolol Succinate [Toprol XL 100 mg Tablet] 100 mg PO DAILY #30 tab.sr.24h 09/07/18 Prednisone [Deltasone 20 mg Tablet] 20 mg PO BID 3 Days #6 tablet 09/07/18 Allergies/Adverse Reactions: aspirin Adverse Reaction (Verified 09/05/18 08:23) Review of Systems Constitutional: PRESENT: fatigue, weakness Eyes: ABSENT: visual disturbances Ears: ABSENT: hearing changes Cardiovascular: PRESENT: dyspnea on exertion, edema Respiratory: PRESENT: cough, dyspnea, sputum Gastrointestinal: PRESENT: bloating Genitourinary: ABSENT: dysuria, hematuria Musculoskeletal: ABSENT: joint swelling Integumentary: PRESENT: diaphoresis. ABSENT: rash, wounds Neurological: ABSENT: abnormal gait, abnormal speech, confusion, dizziness, focal weakness, syncope Psychiatric: ABSENT: anxiety, depression, homidical ideation, suicidal ideation Endocrine: ABSENT: cold intolerance, heat intolerance, polydipsia, polyuria Hematologic/Lymphatic: ABSENT: easy bleeding, easy bruising Physical Exam Vital Signs: Temp Pulse Resp BP Pulse Ox 97.7 F 99 16 178/78 H 100 03/10/20 21:43 03/10/20 21:43 03/10/20 21:43 03/10/20 21:43 03/10/20 21:43 Intake & Output 03/09/20 03/10/20 03/11/20 06:59 06:59 06:59 Intake Total 150 Balance 150 Weight 78.4 kg Weight/Height Weight 78.4 kg Height 5 ft 9 in General appearance: PRESENT: mild distress Head exam: PRESENT: atraumatic, normocephalic Eye exam: PRESENT: PERRLA Ear exam: PRESENT: normal external ear exam Mouth exam: PRESENT: moist Neck exam: PRESENT: JVD - @8 cm Respiratory exam: PRESENT: accessory muscle use, crackles Cardiovascular exam: PRESENT: +S1, +S2 GI/Abdominal exam: PRESENT: ascites, hypoactive bowel sounds, organolmegaly - hepatomegaly Extremities exam: PRESENT: +2 edema - BLE Neurological exam: PRESENT: alert, oriented to person, oriented to place, oriented to time, oriented to situation Psychiatric exam: PRESENT: appropriate affect Skin exam: PRESENT: warm Laboratory/Radiographs Laboratory Results: 03/10/20 12:44 03/10/20 12:44 03/10/20 03/10/20 03/10/20 12:44 12:44 12:44 WBC 8.4 RBC 3.07 L Hgb 10.6 L Hct 30.6 L MCV 100 H MCH 34.5 H MCHC 34.7 RDW 12.5 Plt Count 164 Seg Neutrophils % 82.3 H Carbonic Acid 0.73 L HCO3/H2CO3 Ratio 18:1 ABG pH 7.35 ABG pCO2 24.4 L ABG pO2 131.1 H ABG HCO3 13.2 L ABG O2 Saturation 98.6 H ABG Base Excess -10.8 FiO2 45% Sodium 128.5 L Potassium 5.2 H Chloride 98 Carbon Dioxide 18 L Anion Gap 13 BUN 57 H Creatinine 1.98 H Est GFR ( Amer) 41 L Glucose 169 H Calcium 8.9 Ferritin Total Bilirubin 1.3 AST 1225 H Alkaline Phosphatase 152 H Total Protein 6.7 Albumin 3.4 L Lipase Urine Color Urine Appearance Urine pH Ur Specific [place] Urine Protein Urine Glucose (UA) Urine Ketones Urine Blood Urine Nitrite Ur Leukocyte Esterase Urine WBC (Auto) Urine RBC (Auto) 03/10/20 03/10/20 12:44 13:51 WBC RBC Hgb Hct MCV MCH MCHC RDW Plt Count Seg Neutrophils % Carbonic Acid HCO3/H2CO3 Ratio ABG pH ABG pCO2 ABG pO2 ABG HCO3 ABG O2 Saturation ABG Base Excess FiO2 Sodium Potassium Chloride Carbon Dioxide Anion Gap BUN Creatinine Est GFR ( Amer) Glucose Calcium Ferritin 985.00 H Total Bilirubin AST Alkaline Phosphatase Total Protein Albumin Lipase 293.8 Urine Color JOHN Urine Appearance SLIGHTLY-CLOUDY Urine pH 5.0 Ur Specific [place] 1.022 Urine Protein >=500 H Urine Glucose (UA) 50 H Urine Ketones 20 H Urine Blood SMALL H Urine Nitrite NEGATIVE Ur Leukocyte Esterase NEGATIVE Urine WBC (Auto) 3 Urine RBC (Auto) 1 03/10/20 03/10/20 12:44 12:44 Creatine Kinase 64 CK-MB (CK-2) 5.13 H Troponin I 1.570 NT-Pro-B Natriuret Pep 138226 H Impressions: Chest X-Ray 03/10/20 12:44 IMPRESSION: BASILAR AIRSPACE DISEASE, INTERVAL WORSENING IN THE LEFT LUNG BASE. Critical Time Critical Time (minutes): 65 -: The care of a critically ill patient is dynamic. This note represents a static moment in the admission process. Orders and treatments may be given simultaneously and urgently, and time is not business services sales representative of the treatment process. This patient requires Critical Care secondary to life threatening organ or limb dysfunction. Without Critical Care services, the patient is at risk for increased mortality and morbidity.
[2020-03-10] MEDS: HEPARIN SOD (PORCINE) 5,000 UNIT/ML 1 ML VIAL SUBCUT SCH (23:04)
--- NOTE | 2020-03-10 23:21 | EKG REPORT ---
SEVERITY:- ABNORMAL ECG - SINUS TACHYCARDIA LVH WITH SECONDARY REPOLARIZATION ABNORMALITY ANTERIOR INFARCT, AGE INDETERMINATE LATERAL LEADS ARE ALSO INVOLVED : Confirmed by: Lainey Field 10-Mar-2020 23:21:26
[2020-03-11] MEDS ORDERED: METOPROLOL TARTRATE PF/INJ 5 MG/5 ML SDV IV ONE (03:37)
[2020-03-11] MEDS ORDERED: CHLOROTHIAZIDE SODIUM INJ/PF 500 MG SDV IV ONE ×2 (03:45→08:00)
[2020-03-11 05:29] LABS: ABSOLUTE LYMPHOCYTES (AUTO) 0.7 10^3/uL (0.5-4.7); ABSOLUTE MONOCYTES (AUTO) 0.9 10^3/uL (0.1-1.4); ABSOLUTE NEUT (AUTO) 6.1 10^3/uL (1.7-8.2); BASOPHILS % (AUTO) 0.2 % (0-2); HEMATOCRIT 29.3 % (37.9-51.0); HEMOGLOBIN 10.4 g/dL (13.5-17.0); LYMPHOCYTES % (AUTO) 8.6 % (13-45); MEAN CORPUSCULAR HEMOGLOBIN 34.7 pg (27.0-33.4); MEAN CORPUSCULAR HGB CONC 35.3 g/dL (32.0-36.0); MEAN CORPUSCULAR VOLUME 98 fl (80-97); MONOCYTES % (AUTO) 12.1 % (3-13); PLATELET COUNT 140 10^3/uL (150-450); RED BLOOD COUNT 2.98 10^6/uL (4.35-5.55); RED CELL DISTRIBUTION WIDTH 12.5 % (11.5-14.0); SEGMENTED NEUTROPHILS % (AUTO) 79.1 % (42-78); TOTAL CELLS COUNTED % (AUTO) 100 %; WHITE BLOOD COUNT 7.7 10^3/uL (4.0-10.5)
[2020-03-11 05:35] LABS: INTERNATIONAL RATION (INR) 1.42; PROTHROMBIN TIME 17.5 SEC (11.4-15.4)
[2020-03-11 05:36] LABS: ARTERIAL BLOOD H2CO3 0.87 mmol/L (1.05-1.35); ARTERIAL BLOOD HCO3 17.3 mmol/L (20-24); ARTERIAL BLOOD O2 SATURATION 97.4 % (94-98); ARTERIAL BLOOD PH 7.39 (7.35-7.45); ARTERIAL BLOOD PO2 95.6 mmHg (80-100); ARTERIAL BLOOD TOTAL CO2 18.2 mmol/L (23-27)
[2020-03-11 05:40] LABS: ARTERIAL BLOOD FIO2 45%
[2020-03-11 05:49] LABS: ALBUMIN 3.1 g/dL (3.5-5.0); ALKALINE PHOSPHATASE 167 U/L (38-126); ANION GAP 13 (5-19); BILIRUBIN,DIRECT 0.5 mg/dL (0.0-0.4); BILIRUBIN,TOTAL 1.1 mg/dL (0.2-1.3); BLOOD UREA NITROGEN 66 mg/dL (7-20); CALCIUM 8.4 mg/dL (8.4-10.2); CARBON DIOXIDE 18 mmol/L (22-30); CHLORIDE 99 mmol/L (98-107); GLUCOSE 107 mg/dL (75-110); POTASSIUM 5.2 mmol/L (3.6-5.0); TOTAL PROTEIN 5.8 g/dL (6.3-8.2)
[2020-03-11 06:16] LABS: ASPARTATE AMINO TRANSFERASE 4123 U/L (17-59)
[2020-03-11] MEDS: HEPARIN SOD (PORCINE) 5,000 UNIT/ML 1 ML VIAL SUBCUT SCH ×3 (06:16→21:45)
[2020-03-11] MEDS ORDERED: FUROSEMIDE INJ/PF 40 MG/4 ML SDV ONE (06:27)
[2020-03-11] MEDS ORDERED: FUROSEMIDE INJ/PF 40 MG/4 ML SDV IV ONE (06:27)
[2020-03-11] MEDS ORDERED: FUROSEMIDE INJ/PF 100 MG/10 ML SDV ONE (06:34)
--- NOTE | 2020-03-11 08:29 | RADIOLOGY REPORT (SQ) ---
EXAM DESCRIPTION: CHEST SINGLE VIEW IMAGES COMPLETED DATE/TIME: 03/11/2020 6:29 am REASON FOR STUDY: Resp failure COMPARISON: AP view of the chest are benito 05/04/2020. EXAM PARAMETERS: NUMBER OF VIEWS: One view. TECHNIQUE: An AP view of the chest was obtained. RADIATION DOSE: NA LIMITATIONS: None. FINDINGS: LUNGS AND PLEURA: Improved aeration of the inferior lateral aspect of the right hemithorax . The radiographic appearance of the lungs and pleura is otherwise unchanged. MEDIASTINUM AND HILAR STRUCTURES: Stable mediastinal and hilar contours. HEART AND VASCULAR STRUCTURES: Stable enlarged cardiac silhouette. BONES: No acute findings. HARDWARE: None in the chest. OTHER: No other finding. IMPRESSION: Improved aeration of the inferolateral aspect of the right hemithorax. Otherwise unchan ged radiographic appearance of the chest. TECHNICAL DOCUMENTATION: JOB ID: [id number] 2010 [employer]- All Rights Reserved Reading location - IP/workstation name: [email or web address]
--- NOTE | 2020-03-11 08:34 | EKG REPORT ---
SEVERITY:- ABNORMAL ECG - SINUS RHYTHM LEFT VENTRICULAR HYPERTROPHY ANTERIOR INFARCT, OLD : Confirmed by: Lainey Field 11-Mar-2020 08:34:32
[2020-03-11] MEDS: NORMAL SALINE 250 ML with FUROSEMIDE 250 MG IV PRN ×2 (11:24)
--- NOTE | 2020-03-11 15:38 | PDOC CRITICAL CARE PROG REPORT ---
General Date:: 03/11/20 ICU Day:: 1 Resuscitation Status: Full Code Events in the past 12 to 24 Hours:: Patient admitted to the intensive care unit yesterday for respiratory insufficiency likely secondary to severe right heart failure, COPD and compounding metabolic acidosis. Review of systems relevant to events:: Please see below. Reason for ICU Addmission:: Acute on chronic respiratory failure - Medications: Medications reviewed and adjusted accordingly: Yes Sedation:: No sedation. Physical Exam Vital Signs: Temp Pulse Resp BP Pulse Ox 98.8 F 81 22 H 168/71 H 99 03/11/20 12:00 03/11/20 07:39 03/11/20 14:26 03/11/20 14:26 03/11/20 14:26 Intake & Output 03/10/20 03/11/20 03/12/20 06:59 06:59 06:59 Intake Total 150 Output Total 525 1475 Balance -375 -1475 Weight 78.9 kg 78.9 kg Weight/Height Weight 78.9 kg Height 5 ft 9 in General appearance: PRESENT: no acute distress Head exam: PRESENT: atraumatic Eye exam: PRESENT: EOMI, PERRLA Ear exam: PRESENT: normal external ear exam. ABSENT: bleeding, drainage Mouth exam: PRESENT: dry mucosa, neck supple Neck exam: PRESENT: JVD Respiratory exam: PRESENT: decreased breath sounds, prolonged expiratory phas. ABSENT: accessory muscle use Cardiovascular exam: PRESENT: RRR, +S1, +S2 Pulses: PRESENT: normal radial pulses GI/Abdominal exam: PRESENT: distended, hypoactive bowel sounds, organolmegaly Neurological exam: PRESENT: alert, awake, oriented to person, oriented to place, oriented to situation, CN II-XII grossly intact Psychiatric exam: PRESENT: appropriate affect Skin exam: PRESENT: intact, warm Laboratory/Radiographs Laboratory Results: 03/11/20 04:55 03/11/20 04:55 03/11/20 03/11/20 03/11/20 04:55 04:55 04:55 WBC 7.7 RBC 2.98 L Hgb 10.4 L Hct 29.3 L MCV 98 H MCH 34.7 H MCHC 35.3 RDW 12.5 Plt Count 140 L Seg Neutrophils % 79.1 H Carbonic Acid 0.87 L HCO3/H2CO3 Ratio 19:1 ABG pH 7.39 ABG pCO2 29.0 L ABG pO2 95.6 ABG HCO3 17.3 L ABG O2 Saturation 97.4 ABG Base Excess -6.0 FiO2 45% Sodium 129.6 L Potassium 5.2 H Chloride 99 Carbon Dioxide 18 L Anion Gap 13 BUN 66 H Creatinine 1.99 H Est GFR ( Amer) 40 L Glucose 107 Lactic Acid Calcium 8.4 Magnesium 2.6 H Total Bilirubin 1.1 AST 4123 H Alkaline Phosphatase 167 H Total Protein 5.8 L Albumin 3.1 L 03/11/20 12:40 WBC RBC Hgb Hct MCV MCH MCHC RDW Plt Count Seg Neutrophils % Carbonic Acid HCO3/H2CO3 Ratio ABG pH ABG pCO2 ABG pO2 ABG HCO3 ABG O2 Saturation ABG Base Excess FiO2 Sodium Potassium Chloride Carbon Dioxide Anion Gap BUN Creatinine Est GFR ( Amer) Glucose Lactic Acid 1.9 Calcium Magnesium Total Bilirubin AST Alkaline Phosphatase Total Protein Albumin 03/10/20 03/10/20 03/11/20 12:44 12:44 04:55 Creatine Kinase 64 CK-MB (CK-2) 5.13 H Troponin I 1.570 NT-Pro-B Natriuret Pep 310672 H 701755 H Impressions: Chest X-Ray 03/11/20 06:00 IMPRESSION: Improved aeration of the inferolateral aspect of the right hemithorax. Otherwise unchanged radiographic appearance of the chest. All labs, radiographs, diagnostic studies and EKGs were personally reviewed: Yes In addition, reports of radiographic and diagnostic studies were read: Yes Assessment and Plan - Diagnosis (1) Acute and chronic respiratory failure Qualifiers: Respiratory failure complication: hypoxia and hypercapnia Qualified Code(s): J96.21 - Acute and chronic respiratory failure with hypoxia; J96.22 - Acute and chronic respiratory failure with hypercapnia Is this a current diagnosis for this admission?: Yes Plan: Continue BiPAP for now. Respiratory failure most likely secondary to metabolic acidosis superimposed on COPD. COVID-19 being ruled out however, he has significant medical history and acute issues which may explain his acute respiratory compromise. (2) Elevated brain natriuretic peptide (BNP) level Is this a current diagnosis for this admission?: Yes Plan: Continue with aggressive diuresis including Lasix drip. Follow-up renal panel closely. Follow proBNP. Follow-up results of echocardiogram. Plan Summary: ICU day: 1 Neuro: Pain management/sedation: Patient is awake and alert on no sedation. No pain medication required at this time. Pulmonary: Patient with significant airspace disease seen on x-ray over the past several days. He has a right sided consolidation which was present on prior admission. He was treated at that time with levofloxacin. Obtain sputum cultures today. If patient still with respiratory compromise after aggressive treatment for his right-sided heart failure, we will look to start alternative antibiotics such as amoxicillin/clavulanate. Cardiovascular: Patient with significant right sided heart failure. proBNP 161,000. He also has elevated AST/ALT as well as tenderness in the left upper quadrant. Cardiac exam significant for severe JVD. Echocardiogram pending. Indwelling catheters: Peripheral lines only. Heme: H&H stable 10.4/29.3. DVT prophylaxis: Continue heparin 5000 units subcu. Renal: Patient on a Lasix drip 5 mg an hour for his significant right-sided heart failure symptoms. His BUN/creatinine are currently 66/1.99. Follow renal panel closely but we will continue his Lasix drip for the time being. Gastrointestinal: Patient is n.p.o. due to BiPAP requirement. We will try to wean BiPAP today and possibly wean off over the next 24 hours. : Calix catheter in place. Keep Calix catheter until Lasix drip DC'd. This will most likely be in the next 24 hours. ID: Patient remains afebrile and does not have a significant white blood cell count. COVID-19 currently being ruled out. Ferritin elevated as well as d- dimer. Barriers to discharge from ICU: Respiratory insufficiency requiring BiPAP. Critical Time Critical Time (minutes): 65 Level of Care: ICU -: 1. The care of a critical patient is a dynamic process. This note is a repres entative synopsis but static in nature. The timeframe for treatments given in order is not necessarily the actual time these treatments may have been done. 2. This patient requires critical care secondary to ongoing requirements for therapy not offered or safe outside the critical care environment. Transfer to a lower level of care will result in altered life or limb morbidity and mortality. 3. Multidisciplinary rounds completed. 4. ABCDE bundle addressed.
[2020-03-11] MEDS ORDERED: DOBUTAMINE HCL/D5W 500 MG/250 ML RTUINJ IV ONE (23:28)
[2020-03-11] MEDS: DOBUTAMINE HCL/D5W 500 MG/250 ML RTUINJ IV PRN (23:30)
--- NOTE | 2020-03-11 23:33 | XCELERA REPORT ---
[address] [address] Transthoracic Echocardiogram Report Name: GERONIMO BROWN Age: 69 yrs Gender: Male : 1950 Patient Status: Inpatient Patient Location: ICU^602^A Study Date: 03/11/2020 04:21 PM Height: 69 in Weight: 176 lb BSA: 2.0 m2 Procedure: A two-dimensional transthoracic echocardiogram with color flow and Doppler was performed. The study was technically difficult with many images being suboptimal in quality. Reason For Study: Heart Failure History: Heart Failure. Ordering Physician: CARYL GUAMAN Performed By: Elena Anderson Interpretation Summary There is normal left ventricular wall thickness. LV EF is 20% to 25% Left ventricular systolic function is severely reduced. Doppler measurements suggest pseudonormalized left ventricular relaxation, which is associated with grade II/IV or mild to moderate diastolic dysfunction There is severe global hypokinesis of the left ventricle. There is no thrombus. No ASD,VSD , or PFO seen. The right ventricle is moderately dilated. The right ventricle is not well visualized secondary to technical limitations The right atrium is moderately dilated. The left atrium is moderately dilated. There is mild mitral annular calcification. There is no evidence of mitral valve prolapse. There is no vegetation seen on the mitral valve. There is no mitral valve stenosis. Eccentric posteriorly directed severe MR. There is no aortic valvular vegetation. Pobably mild with peak gradient of 11.9 mm of Hg .Low gradient likely due to poor lV systolic function There is a moderate to severe amount of aortic regurgitation There is no tricuspid stenosis. Probaly moderate TR ( Not well visualsed).Severre pulmonary hypertension.RVSP is 85 to 90 mm of Hg , with RA mean of 15 to 20. There is no pulmonic valvular stenosis. There is a moderate amount of pulmonic regurgitation The aortic root is not well visualized but is probably normal size. The inferior vena cava appeared dilated and decreased < 50% with respiration (RAP 15-20 mmHg) There is no pericardial effusion. MMode/2D Measurements & Calculations RVDd: 3.2 cm LVIDd: 7.0 cm FS: 10.1 % Ao root diam: 3.3 cm IVSd: 1.1 cm LVIDs: 6.3 cm EDV(Teich): 253.7 ml Ao root area: 8.4 cm2 LVPWd: 1.1 cm ESV(Teich): 199.1 ml LA dimension: 4.4 cm EF(Teich): 21.5 % Doppler Measurements & Calculations MV E max sola: MV P1/2t max sola: Ao V2 max: AI max sola: 109.6 cm/sec 110.3 cm/sec 172.2 cm/sec 397.6 cm/sec MV A max sola: MV P1/2t: 56.6 msec Ao max PG: AI max P.3 cm/sec MVA(P1/2t): 3.9 cm2 11.9 mmHg 63.2 mmHg MV E/A: 2.2 MV dec slope: AI dec slope: 623.2 cm/sec2 570.9 cm/sec2 AI P1/2t: MV dec time: 186.9 msec 0.18 sec LV V1 max PG: PA V2 max: PI end-d sola: TR max sola: 4.7 mmHg 67.6 cm/sec 244.3 cm/sec 416.7 cm/sec LV V1 max: PA max P.8 mmHg TR max P.6 cm/sec 69.5 mmHg LV dP/dt: 699.0 mmHg/s AV P1/2t-pr_phl: MV P1/2t-pr_phl: 186.9 msec 56.7 msec Left Ventricle The left ventricle is moderately to severly dilated. There is normal left ventricular wall thickness. LV EF is 20% to 25%. Left ventricular systolic function is severely reduced. Doppler measurements suggest pseudonormalized left ventricular relaxation, which is associated with grade II/IV or mild to moderate diastolic dysfunction. There is severe global hypokinesis of the left ventricle. There is no thrombus. No ASD,VSD , or PFO seen. Right Ventricle The right ventricle is moderately dilated. The right ventricle is not well visualized secondary to technical limitations. Atria The right atrium is moderately dilated. The left atrium is moderately dilated. Mitral Valve There is mild mitral annular calcification. There is no evidence of mitral valve prolapse. There is no vegetation seen on the mitral valve. There is no mitral valve stenosis. Eccentric posteriorly directed severe MR. Aortic Valve There is no aortic valvular vegetation. Pobably mild with peak gradient of 11.9 mm of Hg .Low gradient likely due to poor lV systolic function. There is a moderate to severe amount of aortic regurgitation. Tricuspid Valve There is no tricuspid stenosis. Probaly moderate TR ( Not well visualsed).Severre pulmonary hypertension.RVSP is 85 to 90 mm of Hg , with RA mean of 15 to 20. Pulmonic Valve There is no pulmonic valvular stenosis. There is a moderate amount of pulmonic regurgitation. Great Vessels The aortic root is not well visualized but is probably normal size. The inferior vena cava appeared dilated and decreased < 50% with respiration (RAP 15-20 mmHg). Effusions There is no pericardial effusion. : CARYL GUAMAN Lakshmi
[2020-03-12 04:33] LABS: ABSOLUTE LYMPHOCYTES (AUTO) 0.9 10^3/uL (0.5-4.7); ABSOLUTE MONOCYTES (AUTO) 0.7 10^3/uL (0.1-1.4); ABSOLUTE NEUT (AUTO) 5.2 10^3/uL (1.7-8.2); BASOPHILS % (AUTO) 0.2 % (0-2); EOSINOPHILS % (AUTO) 0.4 % (0-6); HEMATOCRIT 32.1 % (37.9-51.0); HEMOGLOBIN 11.3 g/dL (13.5-17.0); INTERNATIONAL RATION (INR) 1.44; LYMPHOCYTES % (AUTO) 13.3 % (13-45); MEAN CORPUSCULAR HEMOGLOBIN 33.9 pg (27.0-33.4); MEAN CORPUSCULAR HGB CONC 35.1 g/dL (32.0-36.0); MEAN CORPUSCULAR VOLUME 97 fl (80-97); MONOCYTES % (AUTO) 10.1 % (3-13); PLATELET COUNT 164 10^3/uL (150-450); PROTHROMBIN TIME 17.7 SEC (11.4-15.4); RED BLOOD COUNT 3.32 10^6/uL (4.35-5.55); RED CELL DISTRIBUTION WIDTH 12.6 % (11.5-14.0); TOTAL CELLS COUNTED % (AUTO) 100 %; WHITE BLOOD COUNT 6.9 10^3/uL (4.0-10.5)
[2020-03-12 04:47] LABS: ALBUMIN 3.2 g/dL (3.5-5.0); ALKALINE PHOSPHATASE 152 U/L (38-126); ANION GAP 13 (5-19); BILIRUBIN,DIRECT 0.5 mg/dL (0.0-0.4); BILIRUBIN,TOTAL 1.2 mg/dL (0.2-1.3); BLOOD UREA NITROGEN 81 mg/dL (7-20); CALCIUM 8.4 mg/dL (8.4-10.2); CARBON DIOXIDE 20 mmol/L (22-30); CHLORIDE 98 mmol/L (98-107); GLUCOSE 102 mg/dL (75-110); TOTAL PROTEIN 6.3 g/dL (6.3-8.2)
[2020-03-12 05:24] LABS: ASPARTATE AMINO TRANSFERASE 1990 U/L (17-59)
[2020-03-12 05:31] LABS: POTASSIUM 3.8 mmol/L (3.6-5.0)
[2020-03-12] MEDS: HEPARIN SOD (PORCINE) 5,000 UNIT/ML 1 ML VIAL SUBCUT SCH ×3 (06:09→21:57)
--- NOTE | 2020-03-12 17:25 | PDOC CRITICAL CARE PROG REPORT ---
General Date:: 03/12/20 ICU Day:: 2 Resuscitation Status: Full Code Events in the past 12 to 24 Hours:: 03/11 Patient admitted to the intensive care unit yesterday for respiratory insufficiency likely secondary to severe right heart failure, COPD and compounding metabolic acidosis. 03/12 Patient was successfully weaned off of BiPAP after diuresis. Cardiogram shows an EF of 20% with significant AI. Dobutamine started overnight. Cardiology consulted. Review of systems relevant to events:: Please see complete review of systems below. Reason for ICU Addmission:: Acute on chronic respiratory failure - Medications: Medications reviewed and adjusted accordingly: Yes Physical Exam Vital Signs: Temp Pulse Resp BP Pulse Ox 100.0 F 103 H 21 H 159/61 H 97 03/11/20 20:00 03/12/20 09:00 03/12/20 15:00 03/12/20 14:26 03/12/20 15:00 Intake & Output 03/11/20 03/12/20 03/13/20 06:59 06:59 06:59 Intake Total 150 600 Output Total 525 3975 1250 Balance -375 -3975 -650 Weight 78.9 kg 73.8 kg 74.3 kg Weight/Height Weight 74.3 kg Height 5 ft 9 in General appearance: PRESENT: no acute distress, cooperative Head exam: PRESENT: atraumatic, normocephalic Eye exam: PRESENT: EOMI, PERRLA Ear exam: PRESENT: normal external ear exam. ABSENT: bleeding, drainage Mouth exam: PRESENT: moist, neck supple Respiratory exam: PRESENT: decreased breath sounds, unlabored. ABSENT: rhonchi, wheezes Cardiovascular exam: PRESENT: diastolic murmur Pulses: PRESENT: +1 pedal pulses bilateral GI/Abdominal exam: PRESENT: normal bowel sounds, soft. ABSENT: distended Extremities exam: PRESENT: +1 edema Musculoskeletal exam: PRESENT: normal inspection Neurological exam: PRESENT: alert, awake, oriented to person, oriented to time, oriented to situation, CN II-XII grossly intact Psychiatric exam: PRESENT: normal mood. ABSENT: agitated, anxious Laboratory/Radiographs Laboratory Results: 03/12/20 04:19 03/12/20 04:19 03/12/20 03/12/20 04:19 04:19 WBC 6.9 RBC 3.32 L Hgb 11.3 L Hct 32.1 L MCV 97 MCH 33.9 H MCHC 35.1 RDW 12.6 Plt Count 164 Seg Neutrophils % 76.0 Sodium 130.7 L Potassium 3.8 D Chloride 98 Carbon Dioxide 20 L Anion Gap 13 BUN 81 H Creatinine 2.68 H Est GFR ( Amer) 29 L Glucose 102 Calcium 8.4 Total Bilirubin 1.2 AST 1990 H Alkaline Phosphatase 152 H Total Protein 6.3 Albumin 3.2 L 03/10/20 03/10/20 03/11/20 12:44 12:44 04:55 Creatine Kinase 64 CK-MB (CK-2) 5.13 H Troponin I 1.570 NT-Pro-B Natriuret Pep 043620 H [id number] H Impressions: Chest X-Ray 03/11/20 06:00 IMPRESSION: Improved aeration of the inferolateral aspect of the right hemithorax. Otherwise unchanged radiographic appearance of the chest. All labs, radiographs, diagnostic studies and EKGs were personally reviewed: Yes In addition, reports of radiographic and diagnostic studies were read: Yes Assessment and Plan - Diagnosis (1) Acute and chronic respiratory failure Qualifiers: Respiratory failure complication: hypoxia and hypercapnia Qualified Code(s): J96.21 - Acute and chronic respiratory failure with hypoxia; J96.22 - Acute and chronic respiratory failure with hypercapnia Is this a current diagnosis for this admission?: Yes Plan: COVID negative. Patient has been weaned off of BiPAP support and is breathing comfortably on nasal cannula following diuresis.. Continue Lasix and dobutamine (2) Elevated brain natriuretic peptide (BNP) level Is this a current diagnosis for this admission?: Yes Plan: Continue diuresis with Lasix drip. Follow-up renal panel closely. Follow proBNP. Echocardiogram shows severely reduced cardiac output with an EF of 20% and significant AI. Patient being followed by cardiology. We will follow-up recommendations. Plan Summary: ICU day: 2 Neuro: Pain management/sedation: Patient is awake and alert on no sedation. No pain medication required at this time. Pulmonary: Patient's respiratory failure seems to be well explained by his fluid overload in the setting of CHF and severe aortic insufficiency. His breathing improved significantly with proper diuresis. Cardiovascular: Patient with significant right sided heart failure. proBNP 161,000. He also has elevated AST/ALT as well as tenderness in the left upper quadrant. Cardiac exam significant for severe JVD. Echocardiogram showed an EF of 20% and severe AI. Cardiology consulted. Indwelling catheters: Peripheral lines only. Heme: H&H is stable at 11.3/32.1 DVT prophylaxis: Continue heparin 5000 units subcu. Renal: Patient on a Lasix drip 5 mg an hour for his significant right-sided heart failure symptoms. His BUN/creatinine are currently 66/1.99. Follow renal panel closely but we will continue his Lasix drip for the time being. Gastrointestinal: Resume p.o. feeds as tolerated. : Calix catheter in place. Keep Calix catheter until Lasix drip DC'd. This will most likely be in the next 24 hours. ID: Patient remains afebrile and does not have a significant white blood cell count. COVID-19 to be negative. Barriers to discharge from ICU: Respiratory insufficiency requiring BiPAP. Critical Time Critical Time (minutes): 60 Level of Care: ICU -: 1. The care of a critical patient is a dynamic process. This note is a personal service representative synopsis but static in nature. The timeframe for treatments given in order is not necessarily the actual time these treatments may have been done. 2. This patient requires critical care secondary to ongoing requirements for therapy not offered or safe outside the critical care environment. Transfer to a lower level of care will result in altered life or limb morbidity and mortality. 3. Multidisciplinary rounds completed. 4. ABCDE bundle addressed.
[2020-03-12] MEDS: DOBUTAMINE HCL/D5W 500 MG/250 ML RTUINJ IV PRN (19:00)
--- NOTE | 2020-03-12 21:51 | PDOC CONSULTATION ---
Consultation-Blank Consultation: CRITICAL CARE CARDIOLOGY CONSULTATION by Dr. Fidelina Salvador. Consult done on 03/12/2020. Patient seen at 2 PM. 60 minutes spent with patient with more than 50% of the time spent in direct patient care. REASON FOR CONSULTATION: Patient with severe cardiomyopathy with severely reduced LV ejection fraction and significant valvular disease including significant mitral and tricuspid regurgitation and aortic regurgitation, and severe pulmonary hypertension. CONSULT REQUESTING PROVIDER: Ms. Vicki Martinez, energy administrator nurse practitioner. HISTORY OF PRESENT ILLNESS: Chart reviewed patient examined. Patient known to me but the patient was last seen in my office December 03. At that time the patient had a EF of 55% with mild to moderate aortic regurgitation. The patient had not followed up after that. The patient was admitted with shortness of breath and found to be in acute respiratory failure with hypoxia secondary to acute exacerbation of COPD and heart failure. The patient improved with treatment is off the BiPAP. The patient does have a history of coronary artery disease, but denies any history of chest pain or discomfort. He does have orthopnea but no PND. He he had a cough which is now resolved. He does have leg edema. At present denies any chest pain there is no shortness of breath at rest. But he does have orthopnea. He does have leg edema. He denies any palpitations or syncope or near syncope. The patient denies any history of fever. The patient had COVID19 testing done as an outpatient. We got verbal results today that the test was negative for COVID infection. Past Medical History Cardiac Medical History: Reports: Myocardial Infarction - 1979, Hyperlipidema, Hypertension Pulmonary Medical History: Reports: Chronic Obstructive Pulmonary Disease (COPD) Malignancy Medical History: Reports: Colorectal Cancer - Status post partial colectomy Past Surgical History Past Surgical History: Reports: Other - Partial colectomy 3 years ago for colon cancer Social/Family History - Social History Smoking Status: Current Every Day Smoker Frequency of Alcohol Use: Heavy Hx Recreational Drug Use: No Drugs: None Hx Prescription Drug Abuse: No - Medication/Allergies Home Medications: Atorvastatin Calcium [Lipitor 20 mg Tablet] 10 mg PO DAILY 09/05/18 Multivitamin [Tab-A-Rosendo (Multiple Vitamin) Tablet] 1 tab PO DAILY 09/05/18 Tizanidine HCl 4 mg PO Q8 PRN 09/05/18 Levofloxacin [Levaquin 750 mg Tablet] 750 mg PO DAILY 5 Days #5 tablet 09/07/18 Lisinopril [Prinivil] 30 mg PO DAILY #30 tablet 09/07/18 Metoprolol Succinate [Toprol XL 100 mg Tablet] 100 mg PO DAILY #30 tab.sr.24h 09/07/18 Prednisone [Deltasone 20 mg Tablet] 20 mg PO BID 3 Days #6 tablet 09/07/18 Allergies/Adverse Reactions: aspirin Adverse Reaction (Verified 09/05/18 08:23) Review of Systems Constitutional: PRESENT: fatigue, weakness Eyes: ABSENT: visual disturbances Ears: ABSENT: hearing changes Cardiovascular: PRESENT: dyspnea on exertion, edema Respiratory: PRESENT: cough, dyspnea, sputum Gastrointestinal: PRESENT: bloating Genitourinary: ABSENT: dysuria, hematuria Musculoskeletal: ABSENT: joint swelling Integumentary: PRESENT: diaphoresis. ABSENT: rash, wounds Neurological: ABSENT: abnormal gait, abnormal speech, confusion, dizziness, focal weakness, syncope Psychiatric: ABSENT: anxiety, depression, homidical ideation, suicidal ideation Endocrine: ABSENT: cold intolerance, heat intolerance, polydipsia, polyuria Hematologic/Lymphatic: ABSENT: easy bleeding, easy bruising Current Medications Generic Name Dose Route Start Last Admin Trade Name Freq PRN Reason Stop Dose Admin Atorvastatin Calcium 10 mg 03/12/20 22:00 03/12/20 21:57 Lipitor 10 Mg Tablet PO 04/11/20 21:59 10 mg QHS LARRY Administration Heparin Sodium (Porcine) 5,000 unit 03/10/20 22:00 03/12/20 21:57 Heparin Inj 5,000 Units/Ml 1 Ml Vial SUBCUT 04/09/20 21:59 5,000 unit Q8 LARRY Administration Furosemide 250 mg/ Sodium 250 mls @ 5 mls/hr 03/11/20 06:27 03/12/20 21:56 Chloride IV 04/10/20 06:26 5 mg/hr CONTINUOUS PRN 5 mls/hr THIS MED IS NOT "PRN" Administration 5 MG/HR Dobutamine HCl/Dextrose 500 mg in 250 mls @ 0 mls/hr 03/11/20 23:14 03/11/20 23:30 Dobutrex Rtu 500 Mg-D5w 250 Ml Premixed Bag IV 04/10/20 23:13 2.5 mcg/kg/min CONTINUOUS PRN 5.92 mls/hr THIS MED IS NOT "PRN" Administration Protocol Titrate Pharmacy Profile Note 1 each 03/12/20 20:15 03/12/20 21:57 Medication Communication Order 04/11/20 20:14 1 dose QPM LARRY Administration Sodium Chloride 2.5 ml 03/10/20 22:00 03/12/20 21:58 Saline Flush 2.5 Ml Monoject Prefil Syrin IV 04/09/20 21:59 2.5 ml Q8 LARRY Administration Discontinued Medications Generic Name Dose Route Start Last Admin Trade Name Latasha PRN Reason Stop Dose Admin Albuterol 2.5 mg 03/10/20 13:04 03/10/20 13:34 Ventolin 0.083% Neb 2.5 Mg/3 Ml Ampul NEB 03/10/20 13:05 2.5 mg NOW ONE Administration Chlorothiazide Sodium 500 mg 03/11/20 03:45 03/11/20 04:00 Diuril Inj/Pf 500 Mg Sdv IV 03/11/20 03:46 Not Given ONCE ONE Chlorothiazide Sodium 500 mg 03/11/20 08:00 03/11/20 09:42 Diuril Inj/Pf 500 Mg Sdv IV 03/11/20 08:01 500 mg ONCE ONE Administration Furosemide 40 mg 03/10/20 22:00 03/10/20 23:04 Lasix Inj/Pf 40 Mg/4 Ml Sdv IV 04/09/20 21:59 40 mg Q12 LARRY Administration Furosemide 40 mg 03/11/20 06:27 03/11/20 06:33 Lasix Inj/Pf 40 Mg/4 Ml Sdv IV 03/11/20 06:28 40 mg NOW ONE Administration Furosemide Confirm 03/11/20 06:27 03/11/20 06:46 Lasix Inj/Pf 40 Mg/4 Ml Sdv Administered 03/11/20 06:28 Not Given Dose 40 mg .ROUTE .STK-MED ONE Furosemide Confirm 03/11/20 06:34 03/11/20 06:50 Lasix Inj/Pf 100 Mg/10 Ml Sdv Administered 03/11/20 06:35 100 mg Dose Administration 100 mg .ROUTE .STK-MED ONE Levofloxacin/Dextrose 750 mg in 150 mls @ 100 mls/hr 03/10/20 13:39 03/10/20 16:37 Levaquin Rtu 750 Mg/D5w 150 Ml Premix IV 03/10/20 15:08 Infused NOW ONE Infusion Dobutamine HCl/Dextrose Confirm 03/11/20 23:28 03/11/20 23:55 Dobutrex Rtu 500 Mg-D5w 250 Ml Premixed Bag Administered 03/11/20 23:29 Not Given Dose 500 mg in 250 mls @ ud IV .STK-MED ONE Metolazone 5 mg 03/10/20 20:55 03/10/20 20:55 Zaroxolyn 5 Mg Tablet NG 03/10/20 20:56 Not Given NOW ONE Metoprolol Tartrate 5 mg 03/11/20 03:37 03/11/20 04:31 Lopressor Inj/Pf 5 Mg/5 Ml Sdv IV 03/11/20 03:38 5 mg NOW ONE Administration PHYSICAL EXAMINATION: The patient is a frail build and appears to be chronically ill. Selected Entries 03/12/20 03/12/20 03/12/20 14:00 14:25 14:26 Core 98.8 F 98.8 F 98.8 F Temperature Heart Rate ( 96 100 99 Monitors) Respiratory 22 H Rate Blood Pressure 159/61 H Blood Pressure 93 Mean O2 Sat by Pulse 98 Oximetry 03/12/20 18:49 Core Temperature Heart Rate ( Monitors) Respiratory Rate Blood Pressure Blood Pressure Mean O2 Sat by Pulse 99 Oximetry HEAD: Is atraumatic normocephalic. EYES: Pupils are equal round regular reactive to light and accommodation. Extraocular movements are normal. There is no conjunctival pallor. There is no scleral icterus. EARS: Tympanic membranes are intact. External auditory canals are clear. NOSE: There is no deviated nasal septum. There is no inflammation nasal mucous membrane. MOUTH: Mucous membranes of the mouth are moist. Tongue is moist. There is no ulcers. There is no bleeding from the gums. THROAT: There is no redness of the oropharynx. There is no exudates. SKIN: There is no skin rashes. There is no petechia or ecchymosis. There is no skin lesions. NECK: Is supple. There is JVD present. There is prominent carotid pulsation. There is no lymphadenopathy. There is no accessory muscles of respiration use. Trachea central. LUNGS: Shows diminished air entry prolonged expiration. There is scattered rhonchi and wheezing present. There is no definite rales of CHF. HEART: S1-S2 is heard. There is no S3 gallop. There is no S4 gallop. There is murmur of mitral regurgitation, tricuspid regurgitation, and aortic regurgitation present. There is significant peripheral signs of aortic regurgitation. Hence this is chronic aortic regurgitation and not acute aortic regurgitation. I think the patient has 'Quinke's sign' although I cannot see the nail bed Pulsations very well due to wearing PPE, requiring a facial shield. There is 'Pistol shot'sounds over the femoral arteries. There is 'Duroziers murmur'. There is also collapsing pulse. There is no S3 gallop. There is no S4 gallop. There is no rub. ABDOMEN: Soft. There is hepatomegaly present. There is questionable hepatic pulsation. There is no definite splenomegaly. Bowel sounds are well heard. There is ascites present. EXTREMITIES: Femorals are diminished. There is bilateral femoral bruits as mentioned earlier. Leg pulses are diminished. There is no pedal edema. There is no DVT or cellulitis. There is no cyanosis or clubbing VISUAL MERCHANDISING COORDINATOR: The patient is conscious awake alert oriented x3 with no focal deficits. PSYCHIATRIC: Patient judgment insight are intact his affect is normal. Labs- Entire Visit 03/10/20 03/10/20 03/10/20 12:44 12:44 12:44 WBC 8.4 RBC 3.07 L Hgb 10.6 L Hct 30.6 L MCV 100 H MCH 34.5 H MCHC 34.7 RDW 12.5 Plt Count 164 Lymph % (Auto) 11.3 L [place] % (Auto) 6.0 Eos % (Auto) 0.0 Baso % (Auto) 0.4 Absolute Neuts (auto) 6.9 Absolute Lymphs (auto) 0.9 Absolute Monos (auto) 0.5 Absolute Eos (auto) 0.0 Absolute Basos (auto) 0.0 Seg Neutrophils % 82.3 H PT INR D-Dimer Carbonic Acid HCO3/H2CO3 Ratio ABG pH ABG pCO2 ABG pO2 ABG HCO3 ABG Total CO2 ABG O2 Saturation ABG Base Excess FiO2 Sodium 128.5 L Potassium 5.2 H Chloride 98 Carbon Dioxide 18 L Anion Gap 13 BUN 57 H Creatinine 1.98 H Est GFR ( Amer) 41 L Est GFR (MDRD) Non-Af 34 L Glucose 169 H Lactic Acid Calcium 8.9 Magnesium Ferritin Total Bilirubin 1.3 Direct Bilirubin 0.5 H Neonat Total Bilirubin Not Reportable Neonat Direct Bilirubin Not Reportable Neonat Indirect Bili Not Reportable AST 1225 H ALT 857 H Alkaline Phosphatase 152 H Creatine Kinase 64 CK-MB (CK-2) 5.13 H Troponin I 1.570 NT-Pro-B Natriuret Pep 817968 H Total Protein 6.7 Albumin 3.4 L Lipase Urine Color Urine Appearance Urine pH Ur Specific [place] Urine Protein Urine Glucose (UA) Urine Ketones Urine Blood Urine Nitrite Urine Bilirubin Urine Urobilinogen Ur Leukocyte Esterase Urine WBC (Auto) Urine RBC (Auto) U Hyaline Cast (Auto) Urine Bacteria (Auto) Squamous Epi Cells Auto Urine Mucus (Auto) Urine Ascorbic Acid 03/10/20 03/10/20 03/10/20 12:44 12:44 12:44 WBC RBC Hgb Hct MCV MCH MCHC RDW Plt Count Lymph % (Auto) [place] % (Auto) Eos % (Auto) Baso % (Auto) Absolute Neuts (auto) Absolute Lymphs (auto) Absolute Monos (auto) Absolute Eos (auto) Absolute Basos (auto) Seg Neutrophils % PT 14.7 INR 1.14 D-Dimer 3.41 H Carbonic Acid 0.73 L HCO3/H2CO3 Ratio 18:1 ABG pH 7.35 ABG pCO2 24.4 L ABG pO2 131.1 H ABG HCO3 13.2 L ABG Total CO2 13.9 L ABG O2 Saturation 98.6 H ABG Base Excess -10.8 FiO2 45% Sodium Potassium Chloride Carbon Dioxide Anion Gap BUN Creatinine Est GFR ( Amer) Est GFR (MDRD) Non-Af Glucose Lactic Acid Calcium Magnesium Ferritin 985.00 H Total Bilirubin Direct Bilirubin Neonat Total Bilirubin Neonat Direct Bilirubin Neonat Indirect Bili AST ALT Alkaline Phosphatase Creatine Kinase CK-MB (CK-2) Troponin I NT-Pro-B Natriuret Pep Total Protein Albumin Lipase 293.8 Urine Color Urine Appearance Urine pH Ur Specific [place] Urine Protein Urine Glucose (UA) Urine Ketones Urine Blood Urine Nitrite Urine Bilirubin Urine Urobilinogen Ur Leukocyte Esterase Urine WBC (Auto) Urine RBC (Auto) U Hyaline Cast (Auto) Urine Bacteria (Auto) Squamous Epi Cells Auto Urine Mucus (Auto) Urine Ascorbic Acid 03/10/20 03/11/20 03/11/20 13:51 04:55 04:55 WBC 7.7 RBC 2.98 L Hgb 10.4 L Hct 29.3 L MCV 98 H MCH 34.7 H MCHC 35.3 RDW 12.5 Plt Count 140 L Lymph % (Auto) 8.6 L [place] % (Auto) 12.1 Eos % (Auto) 0.0 Baso % (Auto) 0.2 Absolute Neuts (auto) 6.1 Absolute Lymphs (auto) 0.7 Absolute Monos (auto) 0.9 Absolute Eos (auto) 0.0 Absolute Basos (auto) 0.0 Seg Neutrophils % 79.1 H PT 17.5 H INR 1.42 D-Dimer Carbonic Acid HCO3/H2CO3 Ratio ABG pH ABG pCO2 ABG pO2 ABG HCO3 ABG Total CO2 ABG O2 Saturation ABG Base Excess FiO2 Sodium Potassium Chloride Carbon Dioxide Anion Gap BUN Creatinine Est GFR ( Amer) Est GFR (MDRD) Non-Af Glucose Lactic Acid Calcium Magnesium Ferritin Total Bilirubin Direct Bilirubin Neonat Total Bilirubin Neonat Direct Bilirubin Neonat Indirect Bili AST ALT Alkaline Phosphatase Creatine Kinase CK-MB (CK-2) Troponin I NT-Pro-B Natriuret Pep Total Protein Albumin Lipase Urine Color JOHN Urine Appearance SLIGHTLY-CLOUDY Urine pH 5.0 Ur Specific [place] 1.022 Urine Protein >=500 H Urine Glucose (UA) 50 H Urine Ketones 20 H Urine Blood SMALL H Urine Nitrite NEGATIVE Urine Bilirubin NEGATIVE Urine Urobilinogen 2.0 H Ur Leukocyte Esterase NEGATIVE Urine WBC (Auto) 3 Urine RBC (Auto) 1 U Hyaline Cast (Auto) 13 Urine Bacteria (Auto) TRACE Squamous Epi Cells Auto 1 Urine Mucus (Auto) RARE Urine Ascorbic Acid NEGATIVE 03/11/20 03/11/20 03/11/20 04:55 04:55 04:55 WBC RBC Hgb Hct MCV MCH MCHC RDW Plt Count Lymph % (Auto) [place] % (Auto) Eos % (Auto) Baso % (Auto) Absolute Neuts (auto) Absolute Lymphs (auto) Absolute Monos (auto) Absolute Eos (auto) Absolute Basos (auto) Seg Neutrophils % PT INR D-Dimer Carbonic Acid 0.87 L HCO3/H2CO3 Ratio 19:1 ABG pH 7.39 ABG pCO2 29.0 L ABG pO2 95.6 ABG HCO3 17.3 L ABG Total CO2 18.2 L ABG O2 Saturation 97.4 ABG Base Excess -6.0 FiO2 45% Sodium 129.6 L Potassium 5.2 H Chloride 99 Carbon Dioxide 18 L Anion Gap 13 BUN 66 H Creatinine 1.99 H Est GFR ( Amer) 40 L Est GFR (MDRD) Non-Af 33 L Glucose 107 Lactic Acid Calcium 8.4 Magnesium 2.6 H Ferritin Total Bilirubin 1.1 Direct Bilirubin 0.5 H Neonat Total Bilirubin Not Reportable Neonat Direct Bilirubin Not Reportable Neonat Indirect Bili Not Reportable AST 4123 H ALT 2770 H Alkaline Phosphatase 167 H Creatine Kinase CK-MB (CK-2) Troponin I NT-Pro-B Natriuret Pep [id number] H Total Protein 5.8 L Albumin 3.1 L Lipase Urine Color Urine Appearance Urine pH Ur Specific [place] Urine Protein Urine Glucose (UA) Urine Ketones Urine Blood Urine Nitrite Urine Bilirubin Urine Urobilinogen Ur Leukocyte Esterase Urine WBC (Auto) Urine RBC (Auto) U Hyaline Cast (Auto) Urine Bacteria (Auto) Squamous Epi Cells Auto Urine Mucus (Auto) Urine Ascorbic Acid 03/11/20 03/12/20 03/12/20 12:40 04:19 04:19 WBC 6.9 RBC 3.32 L Hgb 11.3 L Hct 32.1 L MCV 97 MCH 33.9 H MCHC 35.1 RDW 12.6 Plt Count 164 Lymph % (Auto) 13.3 [place] % (Auto) 10.1 Eos % (Auto) 0.4 Baso % (Auto) 0.2 Absolute Neuts (auto) 5.2 Absolute Lymphs (auto) 0.9 Absolute Monos (auto) 0.7 Absolute Eos (auto) 0.0 Absolute Basos (auto) 0.0 Seg Neutrophils % 76.0 PT 17.7 H INR 1.44 D-Dimer Carbonic Acid HCO3/H2CO3 Ratio ABG pH ABG pCO2 ABG pO2 ABG HCO3 ABG Total CO2 ABG O2 Saturation ABG Base Excess FiO2 Sodium Potassium Chloride Carbon Dioxide Anion Gap BUN Creatinine Est GFR ( Amer) Est GFR (MDRD) Non-Af Glucose Lactic Acid 1.9 Calcium Magnesium Ferritin Total Bilirubin Direct Bilirubin Neonat Total Bilirubin Neonat Direct Bilirubin Neonat Indirect Bili AST ALT Alkaline Phosphatase Creatine Kinase CK-MB (CK-2) Troponin I NT-Pro-B Natriuret Pep Total Protein Albumin Lipase Urine Color Urine Appearance Urine pH Ur Specific [place] Urine Protein Urine Glucose (UA) Urine Ketones Urine Blood Urine Nitrite Urine Bilirubin Urine Urobilinogen Ur Leukocyte Esterase Urine WBC (Auto) Urine RBC (Auto) U Hyaline Cast (Auto) Urine Bacteria (Auto) Squamous Epi Cells Auto Urine Mucus (Auto) Urine Ascorbic Acid 03/12/20 03/12/20 04:19 21:55 WBC RBC Hgb Hct MCV MCH MCHC RDW Plt Count Lymph % (Auto) [place] % (Auto) Eos % (Auto) Baso % (Auto) Absolute Neuts (auto) Absolute Lymphs (auto) Absolute Monos (auto) Absolute Eos (auto) Absolute Basos (auto) Seg Neutrophils % PT INR D-Dimer Carbonic Acid HCO3/H2CO3 Ratio ABG pH ABG pCO2 ABG pO2 ABG HCO3 ABG Total CO2 ABG O2 Saturation ABG Base Excess FiO2 Sodium 130.7 L 129.4 L Potassium 3.8 D 3.6 Chloride 98 95 L Carbon Dioxide 20 L 25 Anion Gap 13 9 BUN 81 H 89 H Creatinine 2.68 H 2.37 H Est GFR ( Amer) 29 L 33 L Est GFR (MDRD) Non-Af 24 L 27 L Glucose 102 144 H Lactic Acid Calcium 8.4 7.8 L Magnesium 2.2 Ferritin Total Bilirubin 1.2 Direct Bilirubin 0.5 H Neonat Total Bilirubin Not Reportable Neonat Direct Bilirubin Not Reportable Neonat Indirect Bili Not Reportable AST 1990 H ALT 2557 H Alkaline Phosphatase 152 H Creatine Kinase CK-MB (CK-2) Troponin I NT-Pro-B Natriuret Pep Total Protein 6.3 Albumin 3.2 L Lipase Urine Color Urine Appearance Urine pH Ur Specific [place] Urine Protein Urine Glucose (UA) Urine Ketones Urine Blood Urine Nitrite Urine Bilirubin Urine Urobilinogen Ur Leukocyte Esterase Urine WBC (Auto) Urine RBC (Auto) U Hyaline Cast (Auto) Urine Bacteria (Auto) Squamous Epi Cells Auto Urine Mucus (Auto) Urine Ascorbic Acid Chest X-Ray 03/10/20 12:44 IMPRESSION: BASILAR AIRSPACE DISEASE, INTERVAL WORSENING IN THE LEFT LUNG BASE. Chest X-Ray 03/11/20 06:00 IMPRESSION: Improved aeration of the inferolateral aspect of the right hemithorax. Otherwise unchanged radiographic appearance of the chest. EKG on 03/10/2020: Sinus tachycardia. LVH with strain pattern. Old anterior myocardial infarction. The patient's EKG of 03/11/2020: Sinus rhythm LVH by voltage. Old anterior [place]. The patient's COVID's19 testing is negative for COVID infection. Official documentation is yet to be received. ECHOCARDIOGRAM: See report. Shows severe LV dysfunction with a EF of 20% to 25%. There is eccentric moderate to severe mitral regurgitation. There is moderate to severe aortic regurgitation. There is also severe pulmonary hypertension. IMPRESSION/RECOMMENDATION: 1. Acute on chronic respiratory failure. This is a combination of acute exacerbation of severe COPD, possible pneumonia, and acute on chronic systolic heart failure and severe pulmonary hypertension. Patient is improved and is off the BiPAP and is on nasal cannula 2 L/min minute. 2. Acute on chronic systolic heart failure: Continue the patient on dobutamine and Lasix drip. Continue patient metoprolol. Would recommend adding hydralazine and Norvasc. 3. Acute exacerbation of COPD: Possible pneumonia: Continue current treatment seems to be improving 4. Severe aortic regurgitation: This seems to be a chronic aortic regurgitation with peripheral signs of AI. As mentioned earlier continue inotropes in the form of dobutamine, Lasix drip and add hydralazine and amlodipine. 5. Moderate to severe mitral regurgitation. Continue treatment as mentioned for aortic regurgitation and cardiomyopathy 6. Cardiomyopathy with severely reduced LV ejection fraction: Continue metopr olol. In view of the patient's renal failure at present cannot use BYRON inhibitor or ARB. Would recommend starting the patient on hydralazine and nitrates. 7. Severe pulmonary hypertension: Continue the patient on current treatment. Would recommend adding amlodipine and hydralazine. 9. Acute renal failure: Avoid nephrotoxic drugs. Renal function is improving. 9. Coronary artery disease: History of old myocardial infarction: No evidence of anginal symptoms. Continue beta-blockers. Later would recommend adding Plavix. The patient is allergic to aspirin. If blood pressure allows add nit rates. 10. Normal liver function tests: This is probably secondary to multi valvular disease. And also patient probably has portal pulmonary hypertension. 11. Hypertension: At present blood pressure fairly controlled. 12. History of tobacco abuse and history of noncompliance with diet and medications, and office visits with physicians. Medications reviewed. Medication adjustment suggestions given. Discussed with the energy administrator. Critical care medical decision making is of high complexity. 75 minutes spent on the patient with more than 50% time spent in direct patient care. Will follow.
[2020-03-12] MEDS: NORMAL SALINE 250 ML with FUROSEMIDE 250 MG IV PRN ×2 (21:56)
[2020-03-12] MEDS: PHARMACY COMMUNICATION ORDER MC SCH (21:57)
[2020-03-12] MEDS ORDERED: ATORVASTATIN CALCIUM 10 MG TABLET PO SCH (22:00)
[2020-03-12 22:24] LABS: ANION GAP 9 (5-19); BLOOD UREA NITROGEN 89 mg/dL (7-20); CALCIUM 7.8 mg/dL (8.4-10.2); CARBON DIOXIDE 25 mmol/L (22-30); CHLORIDE 95 mmol/L (98-107); GLUCOSE 144 mg/dL (75-110); POTASSIUM 3.6 mmol/L (3.6-5.0)
[2020-03-13 04:43] LABS: HEMATOCRIT 31.3 % (37.9-51.0); HEMOGLOBIN 11.2 g/dL (13.5-17.0); MEAN CORPUSCULAR HEMOGLOBIN 34.6 pg (27.0-33.4); MEAN CORPUSCULAR HGB CONC 35.7 g/dL (32.0-36.0); MEAN CORPUSCULAR VOLUME 97 fl (80-97); PLATELET COUNT 175 10^3/uL (150-450); RED BLOOD COUNT 3.24 10^6/uL (4.35-5.55); RED CELL DISTRIBUTION WIDTH 12.7 % (11.5-14.0); WHITE BLOOD COUNT 6.9 10^3/uL (4.0-10.5)
[2020-03-13 04:46] LABS: INTERNATIONAL RATION (INR) 1.21; PROTHROMBIN TIME 15.4 SEC (11.4-15.4)
[2020-03-13 04:59] LABS: ALBUMIN 2.7 g/dL (3.5-5.0); ALKALINE PHOSPHATASE 145 U/L (38-126); ANION GAP 9 (5-19); ASPARTATE AMINO TRANSFERASE 711 U/L (17-59); BILIRUBIN,DIRECT 0.4 mg/dL (0.0-0.4); BILIRUBIN,TOTAL 1.2 mg/dL (0.2-1.3); BLOOD UREA NITROGEN 79 mg/dL (7-20); CALCIUM 7.9 mg/dL (8.4-10.2); CARBON DIOXIDE 28 mmol/L (22-30); CHLORIDE 95 mmol/L (98-107); GLUCOSE 98 mg/dL (75-110); TOTAL PROTEIN 5.6 g/dL (6.3-8.2)
[2020-03-13 05:12] LABS: ABSOLUTE LYMPHOCYTES# (MANUAL) 1.4 10^3/uL (0.5-4.7); ABSOLUTE MONOCYTES # (MANUAL) 0.3 10^3/uL (0.1-1.4); BASOPHILS % (MANUAL) 0 % (0-2); EOSINOPHILS % (MANUAL) 1 % (0-6); LYMPHOCYTES % (MANUAL) 18 % (13-45); MONOCYTES % (MANUAL) 4 % (3-13); SEGMENTED NEUTROPHILS % (MAN) 74 % (42-78); TOTAL CELLS COUNTED 100
[2020-03-13 05:14] LABS: PLATELET COMMENT ADEQUATE
[2020-03-13] MEDS: HEPARIN SOD (PORCINE) 5,000 UNIT/ML 1 ML VIAL SUBCUT SCH ×3 (05:39→22:40)
[2020-03-13] MEDS: AMLODIPINE BESYLATE 5 MG TABLET PO SCH ×2 (09:29→22:39)
[2020-03-13] MEDS: HYDRALAZINE HCL 25 MG TABLET PO SCH ×3 (09:29→17:16)
[2020-03-13] MEDS: FUROSEMIDE 40 MG TABLET PO SCH ×2 (09:30→17:16)
[2020-03-13] MEDS ORDERED: CAPTOPRIL 12.5 MG TABLET PO SCH (10:00)
[2020-03-13] MEDS ORDERED: BISACODYL 10 MG SUPP.RECT PR ONE (11:56)
[2020-03-13] MEDS ORDERED: DIGOXIN INJ 0.5 MG/2 ML AMPULE IV ONE ×2 (13:30→17:30)
[2020-03-13] MEDS: POTASSIUM CHLORIDE 10 MEQ TABLET.ER PO SCH ×3 (15:56→20:23)
[2020-03-13] MEDS: DOBUTAMINE HCL/D5W 500 MG/250 ML RTUINJ IV PRN ×2 (16:41→17:36)
[2020-03-13] MEDS: PHARMACY COMMUNICATION ORDER MC SCH (18:42)
--- NOTE | 2020-03-13 18:47 | Progress Note ---
Provider Note Provider Note: CARDIOLOGY CRITICAL CARE PROGRESS NOTE by Dr. Fidelina Salvador on 03/13/2020. OBJECTIVE: The patient is sitting up in the chair. He denies any chest pain or discomfort. There is orthopnea but no PND. There is no leg edema. He denies any anginal symptoms. There is no arrhythmia seen on the monitor. The patient is tolerating current medication including amlodipine, hydralazine, and dobutamine drip. His urine output is good. The patient's potassium is slightly reduced and this is been replaced. The patient denies any cough or shortness of breath at rest. There is no TIA CVA symptoms. PHYSICAL EXAMINATION: The patient is a frail build and appears to be chronically ill. But in no acute distress. Selected Entries 03/13/20 03/13/20 17:51 18:00 Core 99.3 F Temperature Heart Rate ( 88 Monitors) Respiratory 20 Rate Blood Pressure 154/49 H Blood Pressure 84 Mean O2 Sat by Pulse 97 Oximetry Oxygen Delivery Nasal Cannula Method ( includes room air) Oxygen Flow 2 Rate HEAD: Is atraumatic normocephalic. EYES: Pupils are equal round regular reactive to light and accommodation. Extraocular movements are normal. There is no conjunctival pallor. There is no scleral icterus. EARS: Tympanic membranes are intact. External auditory canals are clear. NOSE: There is no deviated nasal septum. There is no inflammation nasal mucous membrane. MOUTH: Mucous membranes of the mouth are moist. Tongue is moist. There is no ulcers. There is no bleeding from the gums. THROAT: There is no redness of the oropharynx. There is no exudates. SKIN: There is no skin rashes. There is no petechia or ecchymosis. There is no skin lesions. NECK: Is supple. There is JVD present. There is prominent carotid pulsation. There is no lymphadenopathy. There is no accessory muscles of respiration use. Trachea central. LUNGS: Shows diminished air entry prolonged expiration. There is scattered rhonchi and wheezing present. There is no definite rales of CHF. HEART: S1-S2 is heard. There is no S3 gallop. There is no S4 gallop. There is murmur of mitral regurgitation, tricuspid regurgitation, and aortic regurgitation present. There is significant peripheral signs of aortic regurgitation. Hence this is chronic aortic regurgitation and not acute aortic regurgitation. I think the patient has 'Quinke's sign' although I cannot see the nail bed Pulsations very well due to wearing PPE, requiring a facial shield. There is 'Pistol shot'sounds over the femoral arteries. There is 'Duroziers murmur'. There is also collapsing pulse. There is no S3 gallop. There is no S4 gallop. There is no rub. ABDOMEN: Soft. There is hepatomegaly present. There is questionable hepatic pulsation. There is no definite splenomegaly. Bowel sounds are well heard. There is ascites present. EXTREMITIES: Femorals are diminished. There is bilateral femoral bruits as mentioned earlier. Leg pulses are diminished. There is no pedal edema. There is no DVT or cellulitis. There is no cyanosis or clubbing SEED SPECIALIST: The patient is conscious awake alert oriented x3 with no focal deficits. PSYCHIATRIC: Patient judgment insight are intact his affect is normal. Chest X-Ray 03/10/20 12:44 IMPRESSION: BASILAR AIRSPACE DISEASE, INTERVAL WORSENING IN THE LEFT LUNG BASE. Chest X-Ray 03/11/20 06:00 IMPRESSION: Improved aeration of the inferolateral aspect of the right hemithorax. Otherwise unchanged radiographic appearance of the chest. Labs- All tests 24 hr 03/12/20 03/13/20 03/13/20 21:55 04:31 04:31 WBC 6.9 RBC 3.24 L Hgb 11.2 L Hct 31.3 L MCV 97 MCH 34.6 H MCHC 35.7 RDW 12.7 Plt Count 175 Lymph % (Auto) Not Reportable [place] % (Auto) Not Reportable Eos % (Auto) Not Reportable Baso % (Auto) Not Reportable Absolute Neuts (auto) Not Reportable Absolute Lymphs (auto) Not Reportable Absolute Monos (auto) Not Reportable Absolute Eos (auto) Not Reportable Absolute Basos (auto) Not Reportable Total Counted 100 Seg Neutrophils % Not Reportable Seg Neuts % (Manual) 74 Lymphocytes % (Manual) 18 Atypical Lymphs % 3 Monocytes % (Manual) 4 Eosinophils % (Manual) 1 Basophils % (Manual) 0 Abs Neuts (Manual) 5.1 Abs Lymphs (Manual) 1.4 Abs Monocytes (Manual) 0.3 Absolute Eos (Manual) 0.1 Abs Basophils (Manual) 0.0 Platelet Comment ADEQUATE PT 15.4 INR 1.21 Sodium 129.4 L Potassium 3.6 Chloride 95 L Carbon Dioxide 25 Anion Gap 9 BUN 89 H Creatinine 2.37 H Est GFR ( Amer) 33 L Est GFR (MDRD) Non-Af 27 L Glucose 144 H Calcium 7.8 L Magnesium 2.2 Total Bilirubin Direct Bilirubin Neonat Total Bilirubin Neonat Direct Bilirubin Neonat Indirect Bili AST ALT Alkaline Phosphatase Total Protein Albumin 03/13/20 04:31 WBC RBC Hgb Hct MCV MCH MCHC RDW Plt Count Lymph % (Auto) [place] % (Auto) Eos % (Auto) Baso % (Auto) Absolute Neuts (auto) Absolute Lymphs (auto) Absolute Monos (auto) Absolute Eos (auto) Absolute Basos (auto) Total Counted Seg Neutrophils % Seg Neuts % (Manual) Lymphocytes % (Manual) Atypical Lymphs % Monocytes % (Manual) Eosinophils % (Manual) Basophils % (Manual) Abs Neuts (Manual) Abs Lymphs (Manual) Abs Monocytes (Manual) Absolute Eos (Manual) Abs Basophils (Manual) Platelet Comment PT INR Sodium 131.6 L Potassium 3.0 L* Chloride 95 L Carbon Dioxide 28 Anion Gap 9 BUN 79 H Creatinine 1.99 H Est GFR ( Amer) 40 L Est GFR (MDRD) Non-Af 33 L Glucose 98 Calcium 7.9 L Magnesium Total Bilirubin 1.2 Direct Bilirubin 0.4 Neonat Total Bilirubin Not Reportable Neonat Direct Bilirubin Not Reportable Neonat Indirect Bili Not Reportable AST 711 H ALT 1672 H Alkaline Phosphatase 145 H Total Protein 5.6 L Albumin 2.7 L IMPRESSION/RECOMMENDATION: 1. Acute on chronic respiratory failure. This is a combination of acute exacerbation of severe COPD, possible pneumonia, and acute on chronic systolic heart failure and severe pulmonary hypertension. Patient is improved and is off the BiPAP and is on nasal cannula 2 L/min minute. 2. Acute on chronic systolic heart failure: Continue the patient on dobutamine and Lasix drip. Continue patient metoprolol. Would recommend adding hydralazine and Norvasc. 3. Acute exacerbation of COPD: Possible pneumonia: Continue current treatment seems to be improving 4. Severe aortic regurgitation: This seems to be a chronic aortic regurgitation with peripheral signs of AI. As mentioned earlier continue inotropes in the form of dobutamine, Lasix drip and add hydralazine and amlodipine. 5. Moderate to severe mitral regurgitation. Continue treatment as mentioned for aortic regurgitation and cardiomyopathy 6. Cardiomyopathy with severely reduced LV ejection fraction: Continue metoprolol. In view of the patient's renal failure at present cannot use BYRON inhibitor or ARB. Would recommend starting the patient on hydralazine and nitrates. 7. Severe pulmonary hypertension: Continue the patient on current treatment. Would recommend adding amlodipine and hydralazine. 9. Acute renal failure: Avoid nephrotoxic drugs. Renal function is improving. 9. Coronary artery disease: History of old myocardial infarction: No evidence of anginal symptoms. Continue beta-blockers. Later would recommend adding P lavix. The patient is allergic to aspirin. If blood pressure allows add nitrates. 10. Normal liver function tests: This is probably secondary to multi valvular disease. And also patient probably has portal pulmonary hypertension. 11. Hypertension: At present blood pressure fairly controlled. 12. History of tobacco abuse and history of noncompliance with diet and medications, and office visits with physicians. Allergies medications reviewed. Medications adjusted. Critical care medical decision making is of high complexity. 45 minutes spent as patient more than 50% of time spent in direct patient care. Will follow. Medical regimen and management plan discussed with the tobacco scrap sifter on the case.
[2020-03-13] MEDS: METOPROLOL SUCCINATE 25 MG TAB.SR.24H PO SCH (19:07)
--- NOTE | 2020-03-13 19:51 | PDOC CRITICAL CARE PROG REPORT ---
General Date:: 03/13/20 ICU Day:: 3 Resuscitation Status: Full Code Events in the past 12 to 24 Hours:: 03/11 Patient admitted to the intensive care unit yesterday for respiratory insufficiency likely secondary to severe right heart failure, COPD and compounding metabolic acidosis. 03/12 Patient was successfully weaned off of BiPAP after diuresis. Cardiogram shows an EF of 20% with significant AI. Dobutamine started overnight. Cardiology consulted. 03/13: Patient started on amlodipine and hydralazine today. Lasix was changed from drip to p.o. Avoiding ARB's and a size due to renal insufficiency. Review of systems relevant to events:: Please see complete review of systems below. Reason for ICU Addmission:: Acute on chronic respiratory failure - Medications: Medications reviewed and adjusted accordingly: Yes Physical Exam Vital Signs: Temp Pulse Resp BP Pulse Ox 98.8 F 105 H 21 H 154/49 H 97 03/13/20 05:27 03/13/20 07:28 03/13/20 18:00 03/13/20 17:51 03/13/20 18:00 Intake & Output 03/12/20 03/13/20 03/14/20 06:59 06:59 06:59 Intake Total 2017 1653 Output Total 3975 5175 2250 Balance -3975 -3157 -596 Weight 73.8 kg 73.8 kg 73.8 kg Weight/Height Weight 73.8 kg Height 5 ft 9 in General appearance: PRESENT: no acute distress, cooperative Head exam: PRESENT: atraumatic, normocephalic Eye exam: PRESENT: EOMI, PERRLA Ear exam: PRESENT: normal external ear exam Mouth exam: PRESENT: moist, neck supple Neck exam: PRESENT: JVD Respiratory exam: PRESENT: decreased breath sounds, symmetrical, unlabored. ABSENT: rhonchi, wheezes Pulses: PRESENT: normal carotid pulses Vascular exam: PRESENT: normal capillary refill GI/Abdominal exam: PRESENT: normal bowel sounds, soft Musculoskeletal exam: PRESENT: ambulatory, full ROM, normal inspection Neurological exam: PRESENT: alert, awake, oriented to time, oriented to situation Psychiatric exam: PRESENT: appropriate affect Skin exam: PRESENT: normal color Laboratory/Radiographs Laboratory Results: 03/13/20 04:31 03/13/20 04:31 03/12/20 03/13/20 03/13/20 21:55 04:31 04:31 WBC 6.9 RBC 3.24 L Hgb 11.2 L Hct 31.3 L MCV 97 MCH 34.6 H MCHC 35.7 RDW 12.7 Plt Count 175 Seg Neutrophils % Not Reportable Sodium 129.4 L 131.6 L Potassium 3.6 3.0 L* Chloride 95 L 95 L Carbon Dioxide 25 28 Anion Gap 9 9 BUN 89 H 79 H Creatinine 2.37 H 1.99 H Est GFR ( Amer) 33 L 40 L Glucose 144 H 98 Calcium 7.8 L 7.9 L Magnesium 2.2 Total Bilirubin 1.2 AST 711 H Alkaline Phosphatase 145 H Total Protein 5.6 L Albumin 2.7 L 03/10/20 03/10/20 03/11/20 12:44 12:44 04:55 Creatine Kinase 64 CK-MB (CK-2) 5.13 H Troponin I 1.570 NT-Pro-B Natriuret Pep 970396 H 028523 H Impressions: Chest X-Ray 03/11/20 06:00 IMPRESSION: Improved aeration of the inferolateral aspect of the right hemithorax. Otherwise unchanged radiographic appearance of the chest. All labs, radiographs, diagnostic studies and EKGs were personally reviewed: Yes In addition, reports of radiographic and diagnostic studies were read: Yes Assessment and Plan - Diagnosis (1) Acute and chronic respiratory failure Qualifiers: Respiratory failure complication: hypoxia and hypercapnia Qualified Code(s): J96.21 - Acute and chronic respiratory failure with hypoxia; J96.22 - Acute and chronic respiratory failure with hypercapnia Is this a current diagnosis for this admission?: Yes Plan: COVID negative. Patient has been weaned off of BiPAP support and is breathing comfortably on 2 L nasal cannula following diuresis. (2) Elevated brain natriuretic peptide (BNP) level Is this a current diagnosis for this admission?: Yes Plan: Lasix drip changed to p.o. today. Follow-up renal panel closely. Follow proBNP. Echocardiogram shows severely reduced cardiac output with an EF of 20% and significant AI. Patient being followed by cardiology. Started on amlodipine, hydralazine. He continues on dobutamine and Lasix. Would avoid BYRON inhibitors and ARB is due to renal insufficiency. Plan Summary: ICU day: 3 Neuro: Pain management/sedation: Patient is awake and alert on no sedation. No pain medication required at this time. Pulmonary: Patient's respiratory failure is resolved. His breathing improved significantly with proper diuresis. Cardiovascular: Echocardiogram showed an EF of 20% and severe AI. Cardiology consulted. Started on amlodipine, hydralazine. He continues on Lasix p.o. as well as dobutamine drip. Plan will be to take him off dobutamine early tomorrow morning and possibly transfer to floor. Indwelling catheters: Peripheral lines only. Heme: H&H is stable at 11.2/31.3 DVT prophylaxis: Continue heparin 5000 units subcu. Renal: Lasix changed to p.o. today. Creatinine currently 1.99. Avoiding ARBs and BYRON inhibitors. : DC Calix catheter. This will most likely be in the next 24 hours. ID: Patient remains afebrile and does not have a significant white blood cell count. COVID-19 negative. Barriers to discharge from ICU: Plan will be to transfer patient from ICU tomorrow if he does well off of his dobutamine drip. Critical Time Critical Time (minutes): 60 Level of Care: ICU -: 1. The care of a critical patient is a dynamic process. This note is a telephone claims representative synopsis but static in nature. The timeframe for treatments given in order is not necessarily the actual time these treatments may have been done. 2. This patient requires critical care secondary to ongoing requirements for therapy not offered or safe outside the critical care environment. Transfer to a lower level of care will result in altered life or limb morbidity and mortality. 3. Multidisciplinary rounds completed. 4. ABCDE bundle addressed.
[2020-03-14] MEDS: HYDRALAZINE HCL 25 MG TABLET PO SCH ×2 (00:06→06:10)
[2020-03-14 04:45] LABS: BLOOD UREA NITROGEN 68 mg/dL (7-20); GLUCOSE 101 mg/dL (75-110); POTASSIUM 3.7 mmol/L (3.6-5.0)
[2020-03-14 04:50] LABS: CARBON DIOXIDE 31 mmol/L (22-30); CHLORIDE 93 mmol/L (98-107)
[2020-03-14 04:58] LABS: ANION GAP 4 (5-19)
[2020-03-14] MEDS: METOPROLOL SUCCINATE 25 MG TAB.SR.24H PO SCH ×2 (06:10→17:43)
[2020-03-14] MEDS: HEPARIN SOD (PORCINE) 5,000 UNIT/ML 1 ML VIAL SUBCUT SCH ×3 (06:12→22:31)
[2020-03-14] MEDS: FUROSEMIDE 40 MG TABLET PO SCH ×2 (10:39→17:42)
[2020-03-14] MEDS: LISINOPRIL 10 MG TABLET PO SCH ×2 (10:39→22:32)
[2020-03-14] MEDS: AMLODIPINE BESYLATE 5 MG TABLET PO SCH ×2 (10:39→22:32)
--- NOTE | 2020-03-14 15:56 | PDOC CRITICAL CARE PROG REPORT ---
General Date:: 03/14/20 ICU Day:: 4 Resuscitation Status: Full Code Events in the past 12 to 24 Hours:: 03/11 Patient admitted to the intensive care unit yesterday for respiratory insufficiency likely secondary to severe right heart failure, COPD and compounding metabolic acidosis. 03/12 Patient was successfully weaned off of BiPAP after diuresis. Cardiogram shows an EF of 20% with significant AI. Dobutamine started overnight. Cardiology consulted. 03/13: Patient started on amlodipine and hydralazine today. Lasix was changed from drip to p.o. Avoiding ARB's and a size due to renal insufficiency. 03/13: No significant changes or events. Patient was started on metoprolol for an accelerated heart rate. Hydralazine was discontinued. Patient started on lisin opril. Acute renal insufficiency is improving. Reason for ICU Addmission:: Acute on chronic respiratory failure - Medications: Medications reviewed and adjusted accordingly: Yes Physical Exam Vital Signs: Temp Pulse Resp BP Pulse Ox 100.0 F 83 14 151/72 H 95 03/13/20 23:54 03/14/20 08:00 03/14/20 15:00 03/14/20 11:50 03/14/20 15:00 Intake & Output 03/13/20 03/14/20 03/15/20 06:59 06:59 06:59 Intake Total 2017 1893 490 Output Total 5174 3905 400 Balance -3156 -2010 90 Weight 73.8 kg 72.7 kg Weight/Height Weight 72.7 kg Height 5 ft 9 in General appearance: PRESENT: no acute distress Head exam: PRESENT: atraumatic, normocephalic Eye exam: PRESENT: EOMI, PERRLA Ear exam: PRESENT: normal external ear exam Mouth exam: PRESENT: moist Neck exam: PRESENT: JVD Respiratory exam: ABSENT: accessory muscle use, rhonchi, wheezes Cardiovascular exam: PRESENT: RRR Pulses: PRESENT: normal carotid pulses, +1 pedal pulses bilateral Vascular exam: PRESENT: normal capillary refill GI/Abdominal exam: PRESENT: normal bowel sounds, soft. ABSENT: tenderness Extremities exam: PRESENT: +1 edema Musculoskeletal exam: PRESENT: full ROM, normal inspection Neurological exam: PRESENT: alert, awake, oriented to time, oriented to situation Psychiatric exam: PRESENT: appropriate affect, normal mood Skin exam: PRESENT: normal color. ABSENT: abrasion, cyanosis, rash, skin tears Laboratory/Radiographs Laboratory Results: 03/13/20 04:31 03/14/20 04:07 03/13/20 03/14/20 22:39 04:07 Sodium 128.3 L Potassium 3.7 3.7 Chloride 93 L Carbon Dioxide 31 H Anion Gap 4 L BUN 68 H Creatinine 1.70 H Est GFR ( Amer) 48 L Glucose 101 Calcium 8.0 L 03/10/20 03/10/20 03/11/20 12:44 12:44 04:55 Creatine Kinase 64 CK-MB (CK-2) 5.13 H Troponin I 1.570 NT-Pro-B Natriuret Pep [id number] H 884211 H Impressions: Chest X-Ray 03/11/20 06:00 IMPRESSION: Improved aeration of the inferolateral aspect of the right hemithorax. Otherwise unchanged radiographic appearance of the chest. All labs, radiographs, diagnostic studies and EKGs were personally reviewed: Yes In addition, reports of radiographic and diagnostic studies were read: Yes Assessment and Plan - Diagnosis (1) Acute and chronic respiratory failure Qualifiers: Respiratory failure complication: hypoxia and hypercapnia Qualified Code(s): J96.21 - Acute and chronic respiratory failure with hypoxia; J96.22 - Acute and chronic respiratory failure with hypercapnia Is this a current diagnosis for this admission?: Yes Plan: Acute on chronic respiratory failure secondary to fluid overload. COVID negative. Patient has been weaned off of BiPAP support and is breathing comfortably on 2 L nasal cannula following diuresis. (2) Elevated brain natriuretic peptide (BNP) level Is this a current diagnosis for this admission?: Yes Plan: Lasix drip changed to p.o. Echocardiogram shows severely reduced cardiac output with an EF of 20% and significant AI. Patient being followed by cardiology. Started on amlodipine. Hydralazine discontinued and patient started on lisinopril today. He continues on dobutamine and Lasix. Renal insufficiency improving. Plan Summary: ICU day: 4 Neuro: Pain management/sedation: Patient is awake and alert on no sedation. No pain medication required at this time. Pulmonary: Patient's respiratory failure is resolved. His breathing improved significantly with proper diuresis. Cardiovascular: Echocardiogram showed an EF of 20% and severe AI. Cardiology consulted. Started on amlodipine. hydralazine continue today and he was started on lisinopril. He continues on Lasix p.o. as well as dobutamine drip. We will stop dobutamine as per cardiology. Indwelling catheters: Peripheral lines only. Heme: H&H is stable. DVT prophylaxis: Continue heparin 5000 units subcu. Renal: Lasix changed to p.o. Creatinine currently 1.70 and trending down. : DC Calix catheter. ID: Patient remains afebrile and does not have a significant white blood cell count. COVID-19 negative. Barriers to discharge from ICU: The requires intensive care unit level care. It is okay to transfer him to telemetry. He will continue to be followed by cardiology. Critical Time Critical Time (minutes): 60 Level of Care: ICU -: 1. The care of a critical patient is a dynamic process. This note is a sales representative gas service synopsis but static in nature. The timeframe for treatments given in order is not necessarily the actual time these treatments may have been done. 2. This patient requires critical care secondary to ongoing requirements for therapy not offered or safe outside the critical care environment. Transfer to a lower level of care will result in altered life or limb morbidity and mortality. 3. Multidisciplinary rounds completed. 4. ABCDE bundle addressed.
--- NOTE | 2020-03-14 17:31 | Progress Note ---
Provider Note Provider Note: CARDIOLOGY PROGRESS NOTE by Dr. Fidelina Salvador on 03/14/2020. SUBJECTIVE: The patient states he is feeling better. He has no shortness of breath at rest. There is no PND. He still has some degree of orthopnea. There is no arrhythmia seen and the patient is tolerating the dobutamine drip. He has good urine output. There is no chest pain or discomfort. There is no leg edema. There is no atrial or ventricular arrhythmia seen on the monitor. There is no TIA CVA symptoms. There is no palpitations dizziness near syncope or syncope. PHYSICAL EXAMINATION: The patient appears to be chronically ill but in no acute distress. Selected Entries 03/14/20 03/14/20 06:50 08:00 Core 99.3 F Temperature Heart Rate ( 84 Monitors) Respiratory 16 Rate Blood Pressure 152/61 H Blood Pressure 91 Mean O2 Sat by Pulse 96 Oximetry Oxygen Delivery Nasal Cannula Method ( includes room air) Oxygen Flow 2 Rate HEAD: Is atraumatic normocephalic. EYES: Pupils are equal round regular reactive to light and accommodation. Extraocular movements are normal. There is no conjunctival pallor. There is no scleral icterus. EARS: Tympanic membranes are intact. External auditory canals are clear. NOSE: There is no deviated nasal septum. There is no inflammation nasal mucous membrane. MOUTH: Mucous membranes of the mouth are moist. Tongue is moist. There is no ulcers. There is no bleeding from the gums. THROAT: There is no redness of the o ropharynx. There is no exudates. SKIN: There is no skin rashes. There is no petechia or ecchymosis. There is no skin lesions. NECK: Is supple. There is JVD present. There is prominent carotid pulsation. There is no lymphadenopathy. There is no accessory muscles of respiration use. Trachea central. LUNGS: Shows diminished air entry prolonged expiration. There is scattered rhonchi and wheezing present. There is no definite rales of CHF. HEART: S1-S2 is heard. There is no S3 gallop. There is no S4 gallop. There is murmur of mitral regurgitation, tricuspid regurgitation, and aortic regurgitation present. There is significant peripheral signs of aortic regurgitation. Hence this is chronic aortic regurgitation and not acute aortic regurgitation. I think the patient has 'Quinke's sign' although I cannot see the nail bed Pulsations very well due to wearing PPE, requiring a facial shield. There is 'Pistol shot'sounds over the femoral arteries. There is 'Duroziers murmur'. There is also collapsing pulse. There is no S3 gallop. There is no S4 gallop. There is no rub. ABDOMEN: Soft. There is hepatomegaly present. There is questionable hepatic pulsation. There is no definite splenomegaly. Bowel sounds are well heard. There is ascites present. EXTREMITIES: Femorals are diminished. There is bilateral femoral bruits as mentioned earlier. Leg pulses are diminished. There is no pedal edema. There is no DVT or cellulitis. 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 PSYCHIATRIC: Patient judgment insight are intact his affect is normal. T he patient's 24-hour intake is 1894 mL. The patient's output is 3405 mL. Labs- All tests 24 hr 03/14/20 04:07 Sodium 128.3 L Potassium 3.7 Chloride 93 L Carbon Dioxide 31 H Anion Gap 4 L BUN 68 H Creatinine 1.70 H Est GFR ( Amer) 48 L Est GFR (MDRD) Non-Af 40 L Glucose 101 Calcium 8.0 L Chest X-Ray 03/10/20 12:44 IMPRESSION: BASILAR AIRSPACE DISEASE, INTERVAL WORSENING IN THE LEFT LUNG BASE. Chest X-Ray 03/11/20 06:00 IMPRESSION: Improved aeration of the inferolateral aspect of the right hemithorax. Otherwise unchanged radiographic appearance of the chest. IMPRESSION/RECOMMENDATION: 1. Acute on chronic respiratory failure. This is a combination of acute exacerbation of severe COPD, possible pneumonia, and acute on chronic systolic heart failure and severe pulmonary hypertension. Patient is improved and is off the BiPAP and is on nasal cannula 2 L/min 2. Acute on chronic systolic heart failure: Continue the patient on dobutamine and Lasix drip. Continue patient metoprolol. We will continue Norvasc. In view of the GFR coming up to 38 we will stop the patient's hydralazine and place the patient on lisinopril and increase as tolerated. 3. Acute exacerbation of COPD: Possible pneumonia: Continue current treatment seems to be improving 4. Severe aortic regurgitation: This seems to be a chronic aortic regurgitation with peripheral signs of AI. As mentioned earlier continue inotropes in the form of dobutamine, Lasix drip and add hydralazine and amlodipine. 5. Moderate to severe mitral regurgitation. Continue treatment as mentioned for aortic regurgitation and cardiomyopathy 6. Cardiomyopathy with severely reduced LV ejection fraction: Continue metoprolol. The patient renal function is improved. Hence would recommend starting the patient on lisinopril and continuing beta-janet and nitrates. 7. Severe pulmonary hypertension: Continue the patient on current treatment. Would recommend adding amlodipine and hydralazine. 9. Acute renal failure: Avoid nephrotoxic drugs. Renal function is improving. 9. Coronary artery disease: History of old myocardial infarction: No evidence of anginal symptoms. Continue beta-blockers. Later would recommend adding Plavix. The patient is allergic to aspirin. If blood pressure allows add nitrates. 10. Normal liver function tests: This is probably secondary to multi valvular disease. And also patient probably has portal pulmonary hypertension. 11. Hypertension: At present blood pressure fairly controlled. 12. History of tobacco abuse and history of noncompliance with diet and medications, and office visits with physicians. Medications reviewed. Medications added and adjusted. Medical decision making is of high complexity. Medical regimen and management plan discussed with the attending provider on the case. 40 minutes spent on this patient, with more than 50% of time spent in direct patient care. Will follow.
[2020-03-15] MEDS: HEPARIN SOD (PORCINE) 5,000 UNIT/ML 1 ML VIAL SUBCUT SCH ×3 (07:03→21:48)
[2020-03-15] MEDS: METOPROLOL SUCCINATE 25 MG TAB.SR.24H PO SCH ×2 (07:03→18:18)
[2020-03-15] MEDS ORDERED: ISOSORBIDE MONONITRATE 60 MG TAB.ER.24H PO SCH (10:00)
[2020-03-15] MEDS: LISINOPRIL 10 MG TABLET PO SCH ×2 (10:02→21:50)
[2020-03-15] MEDS: FUROSEMIDE 40 MG TABLET PO SCH ×2 (10:02→18:18)
[2020-03-15] MEDS: AMLODIPINE BESYLATE 5 MG TABLET PO SCH ×2 (10:02→21:50)
[2020-03-15] MEDS: DOBUTAMINE HCL/D5W 500 MG/250 ML RTUINJ IV PRN (10:02)
[2020-03-15 11:36] LABS: ABSOLUTE EOSINOPHILS # (AUTO) 0.2 10^3/uL (0.0-0.6); ABSOLUTE LYMPHOCYTES (AUTO) 0.8 10^3/uL (0.5-4.7); ABSOLUTE MONOCYTES (AUTO) 0.8 10^3/uL (0.1-1.4); ABSOLUTE NEUT (AUTO) 5.4 10^3/uL (1.7-8.2); BASOPHILS % (AUTO) 0.3 % (0-2); EOSINOPHILS % (AUTO) 2.8 % (0-6); HEMATOCRIT 30.6 % (37.9-51.0); HEMOGLOBIN 10.8 g/dL (13.5-17.0); LYMPHOCYTES % (AUTO) 10.9 % (13-45); MEAN CORPUSCULAR HEMOGLOBIN 34.8 pg (27.0-33.4); MEAN CORPUSCULAR HGB CONC 35.4 g/dL (32.0-36.0); MEAN CORPUSCULAR VOLUME 98 fl (80-97); MONOCYTES % (AUTO) 11.4 % (3-13); PLATELET COUNT 142 10^3/uL (150-450); RED BLOOD COUNT 3.12 10^6/uL (4.35-5.55); RED CELL DISTRIBUTION WIDTH 13.2 % (11.5-14.0); SEGMENTED NEUTROPHILS % (AUTO) 74.6 % (42-78); TOTAL CELLS COUNTED % (AUTO) 100 %; WHITE BLOOD COUNT 7.2 10^3/uL (4.0-10.5)
[2020-03-15 12:00] LABS: ALBUMIN 2.5 g/dL (3.5-5.0); ALKALINE PHOSPHATASE 115 U/L (38-126); ASPARTATE AMINO TRANSFERASE 256 U/L (17-59); BILIRUBIN,DIRECT 0.1 mg/dL (0.0-0.4); BILIRUBIN,TOTAL 0.8 mg/dL (0.2-1.3); BLOOD UREA NITROGEN 54 mg/dL (7-20); CALCIUM 8.1 mg/dL (8.4-10.2); GLUCOSE 150 mg/dL (75-110); POTASSIUM 3.6 mmol/L (3.6-5.0)
[2020-03-15 12:06] LABS: ANION GAP 5 (5-19); CARBON DIOXIDE 30 mmol/L (22-30); CHLORIDE 93 mmol/L (98-107)
--- NOTE | 2020-03-15 12:23 | RADIOLOGY REPORT (SQ) ---
EXAM DESCRIPTION: CHEST SINGLE VIEW IMAGES COMPLETED DATE/TIME: 03/15/2020 11:30 am REASON FOR STUDY: chf COMPARISON: 03/11/2020 EXAM PARAMETERS: NUMBER OF VIEWS: One view. TECHNIQUE: Single frontal radiographic view of the chest acquired. RADIATION DOSE: NA LIMITATIONS: None. FINDINGS: LUNGS AND PLEURA: Patchy bibasilar opacities and small effusions, right greater than left, increased from prior. No pneumothorax. MEDIASTINUM AND HILAR STRUCTURES: No masses. Contour normal. HEART AND VASCULAR STRUCTURES: Stable. BONES: No acute findings. HARDWARE: None in the chest. OTHER: No other significant finding. IMPRESSION: Mildly increased patchy right basilar opacities possibly atelectasis or infection. No o vert pulmonary edema. Small stable bilateral effusions, right greater left. TECHNICAL DOCUMENTATION: JOB ID: [id number] 2010 [employer]- All Rights Reserved Reading location - IP/workstation name: [email or web address]
[2020-03-15] MEDS: CLOPIDOGREL BISULFATE 75 MG TABLET PO SCH (13:56)
--- NOTE | 2020-03-15 21:05 | Progress Note ---
Provider Note Provider Note: CARDIOLOGY PROGRESS NOTE by Dr. Fidelina Salvador on 03/15/2020. SUBJECTIVE: The patient states he feels better. He has no shortness of breath or chest pain or discomfort. There is no PND orthopnea. There is no leg edema. There is no arrhythmia seen on the monitor. The patient is stable to be transferred to a telemetry unit. PHYSICAL EXAMINATION: The patient appears to be chronically ill but in no acute distress. Selected Entries 03/15/20 03/15/20 06:31 08:00 Temperature 98.8 F Temperature Core Source Core 98.6 F Temperature Pulse Rate 78 Heart Rate ( 79 Monitors) Respiratory 29 H 16 Rate Blood Pressure 123/50 L Blood Pressure 131/48 H [Right Upper Arm] Blood Pressure 74 Mean Blood Pressure 75 Mean [Right Upper Arm] Blood Pressure Supine Position [Right Upper Arm] Blood Pressure 131 Systolic [Right Upper Arm] O2 Sat by Pulse 94 Oximetry Oxygen Delivery Nasal Cannula Method ( includes room air) Oxygen Flow 2 Rate HEAD: Is atraumatic normocephalic. EYES: Pupils are equal round regular reactive to light and accommodation. Extraocular movements are normal. There is no conjunctival pallor. There is no scleral icterus. EARS: Tympanic membranes are intact. External auditory canals are clear. NOSE: There is no deviated nasal septum. There is no inflammation nasal mucous membrane. MOUTH: Mucous membranes of the mouth are moist. Tongue is moist. There is no ulcers. There is no bleeding from the gums. THROAT: There is no redness of the oropharynx. There is no exudates. SKIN: There is no skin rashes. There is no petechia or ecchymosis. There is no skin lesions. NECK: Is supple. There is JVD present. There is prominent carotid pulsation. There is no lymphadenopathy. There is no accessory muscles of respiration use. Trachea central. LUNGS: Shows diminished air entry prolonged expiration. There is no rhonchi and no wheezing present. There is no definite rales of CHF. HEART: S1-S2 is heard. There is no S3 gallop. There is no S4 gallop. There is murmur of mitral regurgitation, tricuspid regurgitation, and aortic regurgitation present. There is significant peripheral signs of aortic regurgitation. Hence this is chronic aortic regurgitation and not acute aortic regurgitation. There is 'Pistol shot'sounds over the femoral arteries. There is 'Duroziers murmur'. There is also collapsing pulse. Today's exam the patient's collapsing pulse is much less obvious.. There is no S3 gallop. There is no S4 gallop. There is no rub. ABDOMEN: Soft. There is hepatomegaly present. There is questionable hepatic pulsation. There is no definite splenomegaly. Bowel sounds are well heard. There is ascites present. EXTREMITIES: Femorals are diminished. There is bilateral femoral bruits as mentioned earlier. Leg pulses are diminished. There is no pedal edema. There is no DVT or cellulitis. 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 PSYCHIATRIC: Patient judgment insight are intact his affect is normal. The patient's 24-hour intake is 740 mL. His 24-hour output is 2003 and 50 mL. Labs- All tests 24 hr 03/15/20 03/15/20 11:29 11:29 WBC 7.2 RBC 3.12 L Hgb 10.8 L Hct 30.6 L MCV 98 H MCH 34.8 H MCHC 35.4 RDW 13.2 Plt Count 142 L Lymph % (Auto) 10.9 L Mccone % (Auto) 11.4 Eos % (Auto) 2.8 Baso % (Auto) 0.3 Absolute Neuts (auto) 5.4 Absolute Lymphs (auto) 0.8 Absolute Monos (auto) 0.8 Absolute Eos (auto) 0.2 Absolute Basos (auto) 0.0 Seg Neutrophils % 74.6 Sodium 128.3 L Potassium 3.6 Chloride 93 L Carbon Dioxide 30 Anion Gap 5 BUN 54 H Creatinine 1.28 H Est GFR ( Amer) > 60 Est GFR (MDRD) Non-Af 56 L Glucose 150 H Calcium 8.1 L Total Bilirubin 0.8 Direct Bilirubin 0.1 Neonat Total Bilirubin Not Reportable Neonat Direct Bilirubin Not Reportable Neonat Indirect Bili Not Reportable AST 256 H ALT 748 H Alkaline Phosphatase 115 Total Protein 5.0 L Albumin 2.5 L Chest X-Ray 03/10/20 12:44 IMPRESSION: BASILAR AIRSPACE DISEASE, INTERVAL WORSENING IN THE LEFT LUNG BASE. Chest X-Ray 03/11/20 06:00 IMPRESSION: Improved aeration of the inferolateral aspect of the right hemithorax. Otherwise unchanged radiographic appearance of the chest. Chest X-Ray 03/15/20 00:00 IMPRESSION: Mildly increased patchy right basilar opacities possibly atelectasis or infection. No overt pulmonary edema. Small stable bilateral effusions, right greater left. IMPRESSION/RECOMMENDATION: 1. Acute on chronic respiratory failure. This is a combination of acute exacerbation of severe COPD, possible pneumonia, and acute on chronic systolic heart failure and severe pulmonary hypertension. Patient is improved and is off the BiPAP and is on nasal cannula 2 L/min 2. Acute on chronic systolic heart failure: Continue the patient on dobutamine and Lasix drip. Continue patient metoprolol. We will continue Norvasc. In view of the GFR coming up to 38 we will stop the patient's hydralazine and place the patient on lisinopril and increase as tolerated. 3. Acute exacerbation of COPD: Possible pneumonia: We will strongly recommend starting antibiotics. 4. Severe aortic regurgitation: This seems to be a chronic aortic regurgitation with peripheral signs of AR. The patient much improved. We will stop the patient's dobutamine. 5. Moderate to severe mitral regurgitation. Continue treatment as mentioned for aortic regurgitation and cardiomyopathy 6. Cardiomyopathy with severely reduced LV ejection fraction: Continue metoprolol. The patient renal function is improved. Hence would recommend starting the patient on lisinopril and continuing beta-janet and nitrates. 7. Severe pulmonary hypertension: Continue the patient on current treatment. W ould recommend adding amlodipine and hydralazine. 9. Acute renal failure: Avoid nephrotoxic drugs. Renal function is improving. 9. Coronary artery disease: History of old myocardial infarction: No evidence of anginal symptoms. Continue beta-blockers. Later would recommend adding Plavix. The patient is allergic to aspirin. If blood pressure allows add nitrates. 10. Normal liver function tests: This is probably secondary to multi valvular disease. And also patient probably has portal pulmonary hypertension. 11. Hypertension: At present blood pressure fairly controlled. 12. History of tobacco abuse and history of noncompliance with diet and medications, and office visits with physicians. Medications reviewed. Medical regimen and management plan discussed with the sports medicine specialist. The patient will be transferred to a telemetry unit. Medical decision making is of high complexity. 40 minutes spent as patient with more than 50% time spent in direct patient care. Will follow.
[2020-03-15] MEDS ORDERED: LEVOFLOXACIN 250 MG TABLET PO SCH (21:15)
[2020-03-15] MEDS: LEVOFLOXACIN 500 MG TABLET PO SCH (21:50)
[2020-03-16] MEDS: HEPARIN SOD (PORCINE) 5,000 UNIT/ML 1 ML VIAL SUBCUT SCH ×3 (05:56→21:51)
[2020-03-16] MEDS: METOPROLOL SUCCINATE 25 MG TAB.SR.24H PO SCH ×2 (05:58→17:58)
[2020-03-16] MEDS ORDERED: ISOSORBIDE MONONITRATE 30 MG TAB.ER.24H PO SCH (10:00)
[2020-03-16] MEDS: FUROSEMIDE 40 MG TABLET PO SCH ×2 (10:04→17:57)
[2020-03-16] MEDS: AMLODIPINE BESYLATE 5 MG TABLET PO SCH ×2 (10:04→22:03)
[2020-03-16] MEDS: LISINOPRIL 10 MG TABLET PO SCH ×2 (10:04→22:02)
[2020-03-16] MEDS: CLOPIDOGREL BISULFATE 75 MG TABLET PO SCH (10:04)
--- NOTE | 2020-03-16 12:03 | PDOC PROGRESS REPORT ---
Subjective Progress Note for:: 03/16/20 Subjective:: No adverse events overnight. No new complaints. He says he can ambulate at home but he is not really tried to get out of bed yet. Eating and drinking without difficulty. He says he does not wear oxygen at home but he still on 2 L per nasal cannula at this time. Reason For Visit: ACUTE ON CHRONIC RESPIRATORY FAILURE Physical Exam Vital Signs: Temp Pulse Resp BP Pulse Ox 98.0 F 62 16 142/49 H 97 03/16/20 08:41 03/16/20 08:41 03/16/20 08:41 03/16/20 08:41 03/16/20 08:41 Intake & Output 03/15/20 03/16/20 03/17/20 06:59 06:59 06:59 Intake Total 740 1246 Output Total 2350 3595 Balance -1610 -1229 Weight 74.4 kg 74 kg General appearance: PRESENT: no acute distress, cooperative, disheveled Respiratory exam: PRESENT: clear to auscultation melisa, prolonged expiratory phas, symmetrical, unlabored. ABSENT: accessory muscle use, chest wall tenderness, crackles, rhonchi, tachypnea, wheezes Cardiovascular exam: PRESENT: RRR, +S1, +S2 Pulses: PRESENT: normal carotid pulses Vascular exam: PRESENT: normal capillary refill GI/Abdominal exam: PRESENT: normal bowel sounds, soft. ABSENT: distended, guarding, rebound, tenderness Extremities exam: ABSENT: clubbing, pedal edema Musculoskeletal exam: PRESENT: normal inspection. ABSENT: deformity Neurological exam: PRESENT: awake, oriented to person, oriented to place, oriented to situation Psychiatric exam: PRESENT: flat affect Skin exam: PRESENT: dry, warm Results Laboratory Results: 03/15/20 11:29 03/15/20 11:29 03/15/20 11:29 Sodium 128.3 L Potassium 3.6 Chloride 93 L Carbon Dioxide 30 Anion Gap 5 BUN 54 H Creatinine 1.28 H Est GFR ( Amer) > 60 Glucose 150 H Calcium 8.1 L Total Bilirubin 0.8 AST 256 H Alkaline Phosphatase 115 Total Protein 5.0 L Albumin 2.5 L 03/10/20 13:51 Blood Blood Culture - Final NO GROWTH IN 5 DAYS 03/10/20 12:44 Blood Blood Culture - Final NO GROWTH IN 5 DAYS 03/10/20 03/10/2020 12:44 12:44 04:55 Creatine Kinase 64 CK-MB (CK-2) 5.13 H Troponin I 1.570 NT-Pro-B Natriuret Pep 297196 H 635980 H Impressions: Chest X-Ray 03/15/20 00:00 IMPRESSION: Mildly increased patchy right basilar opacities possibly at electasis or infection. No overt pulmonary edema. Small stable bilateral effusions, right greater left. Assessment and Plan - Diagnosis (1) Acute on chronic systolic (congestive) heart failure Is this a current diagnosis for this admission?: Yes Plan: EF of 20% on echocardiogram. He has been medically optimized. He is on a beta- janet, BYRON inhibitor, and diuretic. He follows with Dr. Espinoza. We will have him evaluated by physical therapy because he is not gotten out of bed yet. (2) Acute and chronic respiratory failure Qualifiers: Respiratory failure complication: hypoxia and hypercapnia Qualified Code(s): J96.21 - Acute and chronic respiratory failure with hypoxia; J96.22 - Acute and chronic respiratory failure with hypercapnia Is this a current diagnosis for this admission?: Yes Plan: He is required BiPAP but that is now resolved. Currently on 2 L nasal cannula, will try to wean him down to room air. If he needs oxygen at home we will get that set up. (3) COPD (chronic obstructive pulmonary disease) Qualifiers: COPD type: unspecified COPD Qualified Code(s): J44.9 - Chronic obstructive pulmonary disease, unspecified Is this a current diagnosis for this admission?: Yes Plan: Not acutely exacerbated (4) Community acquired pneumonia Qualifiers: Laterality: right Lung location: lower lobe of lung Is this a current diagnosis for this admission?: Yes Plan: Empirically on Levaquin (5) Coronary artery disease Qualifiers: Coronary Disease-Associated Artery/Lesion type: [place] artery [place] vs. transplanted heart: [place] heart Associated angina: without angina Qualified Code(s): I25.10 - Atherosclerotic heart disease of [place] coronary artery without angina pectoris Is this a current diagnosis for this admission?: Yes (6) Hypertension Qualifiers: Hypertension type: essential hypertension Qualified Code(s): I10 - Essential (primary) hypertension Is this a current diagnosis for this admission?: Yes (7) Tobacco dependence Is this a current diagnosis for this admission?: Yes - Time Time Spent with patient: 15-24 minutes
--- NOTE | 2020-03-16 21:51 | Progress Note ---
Provider Note Provider Note: CARDIOLOGY PROGRESS NOTE by Dr. Fidelina Salvador on 03/16/2020. SUBJECTIVE: The patient is sitting up in the chair in no distress. He denies any chest pain or discomfort. There is no cough or sputum production. There is no shortness of breath. There is no PND orthopnea. There is no arrhythmia seen on the monitor. There is no leg edema. There is no TIA CVA symptoms. Physical EXAMINATION: The patient appears to be of frail build and appears to be chronically ill. In no acute distress. Selected Entries 03/16/20 19:14 Temperature 98.5 F Temperature Oral Source Pulse Rate 69 Respiratory 16 Rate Blood Pressure 143/48 H Blood Pressure 79 Mean BP Location Left Arm BP Position Supine O2 Sat by Pulse 97 Oximetry Oxygen Flow 2.00 Rate Oxygen Delivery Nasal Cannula Method HEAD: Is atraumatic normocephalic. EYES: Pupils are equal round regular reacti ve to light and accommodation. Extraocular movements are normal. There is no conjunctival pallor. There is no scleral icterus. EARS: Tympanic membranes are intact. External auditory canals are clear. NOSE: There is no deviated nasal septum. There is no inflammation nasal mucous membrane. MOUTH: Mucous membranes of the mouth are moist. Tongue is moist. There is no ulcers. There is no bleeding from the gums. THROAT: There is no redness of the oropharynx. There is no exudates. SKIN: There is no skin rashes. There is no petechia or ecchymosis. There is no skin lesions. NECK: Is supple. There is JVD present. There is prominent carotid pulsation. There is no lymphadenopathy. There is no accessory muscles of respiration use. Trachea central. LUNGS: Shows diminished air entry prolonged expiration. There is no rhonchi and no wheezing present. There is no definite rales of CHF. HEART: S1-S2 is heard. There is no S3 gallop. There is no S4 gallop. There is murmur of mitral regurgitation, tricuspid regurgitation, and aortic regurgitation present. There is significant peripheral signs of aortic regurgitation. Hence this is chronic aortic regurgitation and not acute aortic regurgitation. There is 'Pistol shot'sounds over the femoral arteries. There is 'Duroziers murmur'. There is also collapsing pulse. Today's exam the patient's collapsing pulse is much less obvious.. There is no S3 gallop. There is no S4 gallop. There is no rub. ABDOMEN: Soft. There is hepatomegaly present. There is questionable hepatic pulsation. There is no definite splenomegaly. Bowel sounds are well heard. There is ascites present. EXTREMITIES: Femorals are diminished. There is bilateral femoral bruits as mentioned earlier. Leg pulses are diminished. There is no pedal edema. There is no DVT or cellulitis. There is no cyanosis or clubbing CONTINUOUS MINER: The patient is conscious awake alert oriented x3 with no focal deficits. PSYCHIATRIC: Patient judgment insight are intact his affect is normal. Chest X-Ray 03/10/20 12:44 IMPRESSION: BASILAR AIRSPACE DISEASE, INTERVAL WORSENING IN THE LEFT LUNG BASE. Chest X-Ray 03/11/20 06:00 IMPRESSION: Improved aeration of the inferolateral aspect of the right hemithorax. Otherwise unchanged radiographic appearance of the chest. Chest X-Ray 03/15/20 00:00 IMPRESSION: Mildly increased patchy right basilar opacities possibly atelectasis or infection. No overt pulmonary edema. Small stable bilateral effusions, right greater left. IMPRESSION/RECOMMENDATION: 1. Acute on chronic respiratory failure. This is a combination of acute exacerbation of severe COPD, possible pneumonia, and acute on chronic systolic heart failure and severe pulmonary hypertension. Patient is improved and is off the BiPAP and is on nasal cannula 2 L/min 2. Acute on chronic systolic heart failure: Continue the patient on dobutamine and Lasix drip. Continue patient metoprolol. We will continue Norvasc. In view of the GFR coming up to 56. 3. Acute exacerbation of COPD: Possible pneumonia: We will strongly recommend starting antibiotics. 4. Severe aortic regurgitation: This seems to be a chronic aortic regurgitation with peripheral signs of AR. The patient much improved. We will stop the patient's dobutamine. 5. Moderate to severe mitral regurgitation. Continue treatment as mentioned for aortic regurgitation and cardiomyopathy 6. Cardiomyopathy with severely reduced LV ejection fraction: Continue me toprolol. The patient renal function is improved. Hence would recommend starting the patient on lisinopril and continuing beta-janet and nitrates. 7. Severe pulmonary hypertension: Continue the patient on current treatment. Would recommend adding amlodipine and hydralazine. 9. Acute renal failure: Avoid nephrotoxic drugs. Renal function is improving. 9. Coronary artery disease: History of old myocardial infarction: No evidence of anginal symptoms. Continue beta-blockers. Later would recommend adding Plavix. The patient is allergic to aspirin. If blood pressure allows add nitrates. 10. Normal liver function tests: This is probably secondary to multi valvular disease. And also patient probably has portal pulmonary hypertension. 11. Hypertension: At present blood pressure fairly controlled, but still is not optimally controlled. We will increase the patient's nitrates. 12. History of tobacco abuse and history of noncompliance with diet and medications, and office visits with physicians. Medications reviewed. Medical management medical regimen discussed with attending physician. In view of the need for medication changes, medical decision making is of high complexity. 40 minutes spent as patient more than 50% of time spent in direct patient care. Will follow.
[2020-03-16] MEDS: LEVOFLOXACIN 500 MG TABLET PO SCH (21:58)
[2020-03-17] MEDS: HEPARIN SOD (PORCINE) 5,000 UNIT/ML 1 ML VIAL SUBCUT SCH ×2 (05:24→15:14)
[2020-03-17] MEDS: METOPROLOL SUCCINATE 25 MG TAB.SR.24H PO SCH (05:42)
[2020-03-17] MEDS: AMLODIPINE BESYLATE 5 MG TABLET PO SCH (09:42)
[2020-03-17] MEDS: CLOPIDOGREL BISULFATE 75 MG TABLET PO SCH (09:43)
[2020-03-17] MEDS: LISINOPRIL 10 MG TABLET PO SCH (09:43)
[2020-03-17] MEDS: FUROSEMIDE 40 MG TABLET PO SCH (09:43)
[2020-03-17] MEDS ORDERED: ISOSORBIDE MONONITRATE 30 MG TAB.ER.24H PO SCH (10:00)
[2020-03-17 13:36] LABS: UR PRO/CREAT RATIO RESULT 1.7 mg/mg (0.0-0.2); URINE CREATININE 74.5 mg/dL (22-328); URINE PROTEIN 128.1 mg/dL (<12)
[2020-03-17 13:47] LABS: APPEARANCE,URINE CLEAR; BILIRUBIN,URINE NEGATIVE (NEGATIVE); COLOR,URINE YELLOW; GLUCOSE, URINE NEGATIVE (NEGATIVE); KETONES,URINE NEGATIVE (NEGATIVE); LEUKOCYTE ESTERASE,URINE NEGATIVE (NEGATIVE); NITRITE,URINE NEGATIVE (NEGATIVE); PROTEIN,URINE 100 mg/dL (NEGATIVE); URINE SPECIFIC GRAVITY 1.012; UROBILINOGEN,URINE NEGATIVE mg/dL (<2.0)
--- NOTE | 2020-03-17 14:28 | PDOC DISCHARGE SUMMARY ---
Impression - Admit/DC Date/PCP Admission Date/Primary Care Provider: 03/10/20 16:35 KOLE BARNES PA-C Discharge Date: 03/17/20 - Additional Information Resuscitation Status: Full Code Discharge Diet: Cardiac Discharge Activity: Activity As Tolerated, Balance Activity w/Rest Referrals: SHANELL BEE MD [NO LOCAL MD] - Follow up as needed Prescriptions: Isosorbide Mononitrate [Imdur 30 mg Tablet.er] 60 mg PO DAILY #30 tab.er.24h Furosemide [Lasix 40 mg Tablet] 40 mg PO BID #60 tablet Levofloxacin [Levaquin 500 mg Tablet] 500 mg PO QHS #2 tablet Lisinopril 40 mg PO DAILY #60 tablet Amlodipine Besylate [Norvasc 5 mg Tablet] 5 mg PO Q12 #60 tablet Clopidogrel Bisulfate [Plavix 75 mg Tablet] 75 mg PO DAILY #30 tablet Metoprolol Succinate [Toprol Xl 25 mg Tab.sr] 25 mg PO Q12A #60 tab.sr.24h Home Medications: Amlodipine Besylate [Norvasc 5 mg Tablet] 5 mg PO Q12 #60 tablet 03/17/20 Clopidogrel Bisulfate [Plavix 75 mg Tablet] 75 mg PO DAILY #30 tablet 03/17/20 Furosemide [Lasix 40 mg Tablet] 40 mg PO BID #60 tablet 03/17/20 Isosorbide Mononitrate [Imdur 30 mg Tablet.er] 60 mg PO DAILY #30 tab.er.24h 03/17/20 Levofloxacin [Levaquin 500 mg Tablet] 500 mg PO QHS #2 tablet 03/17/20 Lisinopril 40 mg PO DAILY #60 tablet 03/17/20 Metoprolol Succinate [Toprol Xl 25 mg Tab.sr] 25 mg PO Q12A #60 tab.sr.24h 03/17/20 History of Present Illiness History of Present Illness: Per admitting physician: "Mr. Dahl is a 71-year-old male with a past medical history of end-stage COPD, previous ND in 1979, hypertension on lisinopril and metoprolol at home, and a history of colon cancer partial colectomy 3 years ago. Mr. Dahl presented to the ED via EMS today with complaints of shortness of breath, he was recently seen at an urgent care center where he COVID test was sent, these results are not available at this time. Upon arrival to patient's home EMS stated that his O2 sat was 89% on room air and became increasingly hypoxic on exertion. Twelve-lead EKG was done in the ambulance and was negative for STEMI. He was placed on BiPAP in the ER with the following settings inspiratory pressure 12 expiratory pressure of 6 rate of 6 FiO2 40%. Labs obtained in the ED shows no leukocytosis white count of 8.4's H&H 10.6 and 30.6 respectively, sodium 128 potassium 5.2 BUN 57 creatinine 1.98 he does have a transaminitis with an AST of 1225 ALT of 857 alk phos of 152 his troponins are elevated at 1.57 and his BN P is elevated at 152,000. ABGs on the previously mentioned BiPAP settings pH of 7.35 PCO2 24.4 PO2 131 HCO3 13.2. He does have an elevated d-dimer at 3.41 and an elevated ferritin level at 985. He is admitted to the ICU for further management of his acute on chronic respiratory failure COVID rule out. Given his highly elevated BNP as well as a transaminitis I am concerned that this is right-sided heart failure rather than COPD exacerbation, or COVID. We will maintain his droplet precautions until his COVID test returns." Hospital Course Hospital Course: Patient admitted for severe CHF exacerbation with acute on chronic hypoxemic respiratory failure. He was initially omitted to the ICU and later stabilized and transitioned to a normal medical bed. Cardiology was consulted and they have added multiple cardiac medications to control his volume, BP, and contractility. He was taken off dobutamine and Lasix drip and transition to oral medications. Case discussed in great detail with cardiology who cleared the patient for discharge. He will need close follow-up with PCP and cardiology. He must stop using tobacco products to see any long-lasting improvement. Per cardiology: 03/16/2020 "IMPRESSION/RECOMMENDATION: 1. Acute on chronic respiratory failure. This is a combination of acute exacerbation of severe COPD, possible pneumonia, and acute on chronic systolic heart failure and severe pulmonary hypertension. Patient is improved and is off the BiPAP and is on nasal cannula 2 L/min 2. Acute on chronic systolic heart failure: Continue the patient on dobutamine and Lasix drip. Continue patient metoprolol. We will continue Norvasc. In view of the GFR coming up to 56. 3. Acute exacerbation of COPD: Possible pneumonia: We will strongly recommend starting antibiotics. 4. Severe aortic regurgitation: This seems to be a chronic aortic regurgitation with peripheral signs of AR. The patient much improved. We will stop the patient's dobutamine. 5. Moderate to severe mitral regurgitation. Continue treatment as mentioned for aortic regurgitation and cardiomyopathy 6. Cardiomyopathy with severely reduced LV ejection fraction: Continue metoprolol. The patient renal function is improved. Hence would recommend starting the patient on lisinopril and continuing beta-janet and nitrates. 7. Severe pulmonary hypertension: Continue the patient on current treatment. Would recommend adding amlodipine and hydralazine. 9. Acute renal failure: Avoid nephrotoxic drugs. Renal function is improving. 9. Coronary artery disease: History of old myocardial infarction: No evidence of anginal symptoms. Continue beta-blockers. Later would recommend adding Plavix. The patient is allergic to aspirin. If blood pressure allows add nitrates. 10. Normal liver function tests: This is probably secondary to multi valvular disease. And also patient probably has portal pulmonary hypertension. 11. Hypertension: At present blood pressure fairly controlled, but still is not optimally controlled. We will increase the patient's nitrates. 12. History of tobacco abuse and history of noncompliance with diet and medications, and office visits with physicians." (1) Acute on chronic systolic (congestive) heart failure Is this a current diagnosis for this admission?: Yes Plan: EF of 20% on echocardiogram. He has been medically optimized. He is on a beta- janet, BYRON inhibitor, and diuretic. He follows with Dr. Espinoza. We will have him evaluated by physical therapy because he is not gotten out of bed yet. (2) Acute and chronic respiratory failure Qualifiers: Respiratory failure complication: hypoxia and hypercapnia Qualified Code(s): J96.21 - Acute and chronic respiratory failure with hypoxia; J96.22 - Acute and chronic respiratory failure with hypercapnia Is this a current diagnosis for this admission?: Yes Plan: He is required BiPAP but that is now resolved. Currently on 2 L nasal cannula, will try to wean him down to room air. If he needs oxygen at home we will get that set up. (3) COPD (chronic obstructive pulmonary disease) Qualifiers: COPD type: unspecified COPD Qualified Code(s): J44.9 - Chronic obstructive pulmonary disease, unspecified Is this a current diagnosis for this admission?: Yes Plan: Not acutely exacerbated (4) Community acquired pneumonia Qualifiers: Laterality: right Lung location: lower lobe of lung Is this a current diagnosis for this admission?: Yes Plan: Empirically on Levaquin for total 5 days (5) Coronary artery disease Qualifiers: Coronary Disease-Associated Artery/Lesion type: [place] artery [place] vs. transplanted heart: [place] heart Associated angina: without angina Qualified Code(s): I25.10 - Atherosclerotic heart disease of [place] coronary artery without angina pectoris Is this a current diagnosis for this admission?: Yes (6) Hypertension Qualifiers: Hypertension type: essential hypertension Qualified Code(s): I10 - Essential (primary) hypertension Is this a current diagnosis for this admission?: Yes (7) Tobacco dependence Is this a current diagnosis for this admission?: Yes Physical Exam Vital Signs: Temp Pulse Resp BP Pulse Ox 98.1 F 72 16 130/48 H 94 03/17/20 11:49 03/17/20 11:49 03/17/20 11:49 03/17/20 11:49 03/17/20 11:49 Intake & Output 03/16/20 03/17/20 03/18/20 06:59 06:59 06:59 Intake Total 1246 1260 810 Output Total 2475 1665 650 Balance -1229 -405 160 Weight 74 kg 71.5 kg General appearance: PRESENT: no acute distress, well-developed, well-nourished Head exam: PRESENT: atraumatic, normocephalic Eye exam: PRESENT: conjunctiva pink, EOMI, PERRLA. ABSENT: scleral icterus Ear exam: PRESENT: normal external ear exam Mouth exam: PRESENT: moist, tongue midline Neck exam: ABSENT: carotid bruit, JVD, lymphadenopathy, thyromegaly Respiratory exam: PRESENT: clear to auscultation melisa. ABSENT: accessory muscle use, rales, rhonchi, wheezes Cardiovascular exam: PRESENT: RRR. ABSENT: diastolic murmur, rubs, systolic murmur Pulses: PRESENT: normal dorsalis pedis pul Vascular exam: PRESENT: normal capillary refill GI/Abdominal exam: PRESENT: normal bowel sounds, soft. ABSENT: distended, guarding, mass, organolmegaly, rebound, tenderness Rectal exam: PRESENT: deferred Extremities exam: PRESENT: full ROM. ABSENT: calf tenderness, clubbing, pedal edema Neurological exam: PRESENT: alert, awake, oriented to person, oriented to place, oriented to time, oriented to situation Psychiatric exam: PRESENT: appropriate affect, normal mood. ABSENT: homicidal ideation, suicidal ideation Skin exam: PRESENT: dry, intact, warm. ABSENT: cyanosis, rash Results Laboratory Results: WBC 7.2 10^3/uL (4.0-10.5) 03/15/20 11:29 RBC 3.12 10^6/uL (4.35-5.55) L 03/15/20 11:29 Hgb 10.8 g/dL (13.5-17.0) L 03/15/20 11:29 Hct 30.6 % (37.9-51.0) L 03/15/20 11:29 MCV 98 fl (80-97) H 03/15/20 11:29 MCH 34.8 pg (27.0-33.4) H 03/15/20 11:29 MCHC 35.4 g/dL (32.0-36.0) 03/15/20 11:29 RDW 13.2 % (11.5-14.0) 03/15/20 11:29 Plt Count 142 10^3/uL (150-450) L 03/15/20 11:29 Lymph % (Auto) 10.9 % (13-45) L 03/15/20 11:29 [place] % (Auto) 11.4 % (3-13) 03/15/20 11:29 Eos % (Auto) 2.8 % (0-6) 03/15/20 11:29 Baso % (Auto) 0.3 % (0-2) 03/15/20 11:29 Absolute Neuts (auto) 5.4 10^3/uL (1.7-8.2) 03/15/20 11:29 Absolute Lymphs (auto) 0.8 10^3/uL (0.5-4.7) 03/15/20 11:29 Absolute Monos (auto) 0.8 10^3/uL (0.1-1.4) 03/15/20 11:29 Absolute Eos (auto) 0.2 10^3/uL (0.0-0.6) 03/15/20 11:29 Absolute Basos (auto) 0.0 10^3/uL (0.0-0.2) 03/15/20 11:29 Total Counted 100 03/13/20 04:31 Seg Neutrophils % 74.6 % (42-78) 03/15/20 11:29 Seg Neuts % (Manual) 74 % (42-78) 03/13/20 04:31 Lymphocytes % (Manual) 18 % (13-45) 03/13/20 04:31 Atypical Lymphs % 3 % (0) 03/13/20 04:31 Monocytes % (Manual) 4 % (3-13) 03/13/20 04:31 Eosinophils % (Manual) 1 % (0-6) 03/13/20 04:31 Basophils % (Manual) 0 % (0-2) 03/13/20 04:31 Abs Neuts (Manual) 5.1 10^3/uL (1.7-8.2) 03/13/20 04:31 Abs Lymphs (Manual) 1.4 10^3/uL (0.5-4.7) 03/13/20 04:31 Abs Monocytes (Manual) 0.3 10^3/uL (0.1-1.4) 03/13/20 04:31 Absolute Eos (Manual) 0.1 10^3/uL (0.0-0.6) 03/13/20 04:31 Abs Basophils (Manual) 0.0 10^3/uL (0.0-0.2) 03/13/20 04:31 Platelet Comment ADEQUATE 03/13/20 04:31 PT 15.4 SEC (11.4-15.4) 03/13/20 04:31 INR 1.21 03/13/20 04:31 D-Dimer 3.41 ug/mL (0.00-0.50) H 03/10/20 12:44 Carbonic Acid 0.87 mmol/L (1.05-1.35) L 03/11/20 04:55 HCO3/H2CO3 Ratio 19:1 03/11/20 04:55 ABG pH 7.39 (7.35-7.45) 03/11/20 04:55 ABG pCO2 29.0 mmHg (35-45) L 03/11/20 04:55 ABG pO2 95.6 mmHg (80-100) 03/11/20 04:55 ABG HCO3 17.3 mmol/L (20-24) L 03/11/20 04:55 ABG Total CO2 18.2 mmol/L (23-27) L 03/11/20 04:55 ABG O2 Saturation 97.4 % (94-98) 03/11/20 04:55 ABG Base Excess -6.0 mmol/L 03/11/20 04:55 FiO2 45% 03/11/20 04:55 Sodium 128.3 mmol/L (137-145) L 03/15/20 11:29 Potassium 3.6 mmol/L (3.6-5.0) 03/15/20 11:29 Chloride 93 mmol/L (98-107) L 03/15/20 11:29 Carbon Dioxide 30 mmol/L (22-30) 03/15/20 11:29 Anion Gap 5 (5-19) 03/15/20 11:29 BUN 54 mg/dL (7-20) H 03/15/20 11:29 Creatinine 1.28 mg/dL (0.52-1.25) H 03/15/20 11:29 Est GFR ( Amer) > 60 (>60) 03/15/20 11:29 Est GFR (MDRD) Non-Af 56 (>60) L 03/15/20 11:29 Glucose 150 mg/dL (75-110) H 03/15/20 11:29 Lactic Acid 1.9 mmol/L (0.7-2.1) 03/11/20 12:40 Calcium 8.1 mg/dL (8.4-10.2) L 03/15/20 11:29 Magnesium 2.2 mg/dL (1.6-2.3) 03/12/20 21:55 Ferritin 985.00 ng/mL (17.9-464.0) H 03/10/20 12:44 Total Bilirubin 0.8 mg/dL (0.2-1.3) 03/15/20 11:29 Direct Bilirubin 0.1 mg/dL (0.0-0.4) 03/15/20 11:29 Neonat Total Bilirubin Not Reportable 03/15/20 11:29 Neonat Direct Bilirubin Not Reportable 03/15/20 11:29 Neonat Indirect Bili Not Reportable 03/15/20 11:29 AST 256 U/L (17-59) H 03/15/20 11:29 ALT 748 U/L (<50) H 03/15/20 11:29 Alkaline Phosphatase 115 U/L (38-126) 03/15/20 11:29 Creatine Kinase 64 U/L (55-170) 03/10/20 12:44 CK-MB (CK-2) 5.13 ng/mL (<4.55) H 03/10/20 12:44 Troponin I 1.570 ng/mL 03/10/20 12:44 NT-Pro-B Natriuret Pep 315736 pg/mL (<125) H 03/11/20 04:55 Total Protein 5.0 g/dL (6.3-8.2) L 03/15/20 11:29 Albumin 2.5 g/dL (3.5-5.0) L 03/15/20 11:29 Lipase 293.8 U/L (23-300) 03/10/20 12:44 Urine Color YELLOW 03/17/20 13:00 Urine Appearance CLEAR 03/17/20 13:00 Urine pH 7.0 (5.0-9.0) 03/17/20 13:00 Ur Specific [place] 1.012 03/17/20 13:00 Urine Protein 100 mg/dL (NEGATIVE) H 03/17/20 13:00 Urine Glucose (UA) NEGATIVE mg/dL (NEGATIVE) 03/17/20 13:00 Urine Ketones NEGATIVE mg/dL (NEGATIVE) 03/17/20 13:00 Urine Blood SMALL (NEGATIVE) H 03/17/20 13:00 Urine Nitrite NEGATIVE (NEGATIVE) 03/17/20 13:00 Urine Bilirubin NEGATIVE (NEGATIVE) 03/17/20 13:00 Urine Urobilinogen NEGATIVE mg/dL (<2.0) 03/17/20 13:00 Ur Leukocyte Esterase NEGATIVE (NEGATIVE) 03/17/20 13:00 Urine WBC (Auto) 1 /HPF 03/17/20 13:00 Urine RBC (Auto) 7 /HPF 03/17/20 13:00 U Hyaline Cast (Auto) 13 /LPF 03/10/20 13:51 Urine Bacteria (Auto) TRACE /HPF 03/10/20 13:51 Squamous Epi Cells Auto <1 /HPF 03/17/20 13:00 Urine Mucus (Auto) RARE /LPF 03/10/20 13:51 Urine Creatinine 74.5 mg/dL (22-328) 03/17/20 13:00 Protein/Creatinin Ratio 1.7 mg/mg (0.0-0.2) H 03/17/20 13:00 Urine Total Protein 128.1 mg/dL (<12) H 03/17/20 13:00 Urine Ascorbic Acid NEGATIVE (NEGATIVE) 03/17/20 13:00 03/10/20 03/11/20 12:44 04:55 CK-MB (CK-2) 5.13 H Troponin I 1.570 NT-Pro-B Natriuret Pep 442058 H 540237 H Impressions: Chest X-Ray 03/10/20 12:44 IMPRESSION: BASILAR AIRSPACE DISEASE, INTERVAL WORSENING IN THE LEFT LUNG BASE. Chest X-Ray 03/11/20 06:00 IMPRESSION: Improved aeration of the inferolateral aspect of the right hemithorax. Otherwise unchanged radiographic appearance of the chest. Chest X-Ray 03/15/20 00:00 IMPRESSION: Mildly increased patchy right basilar opacities possibly atelectasis or infection. No overt pulmonary edema. Small stable bilateral effusions, right greater left. Plan Time Spent: Greater than 30 Minutes Stroke Is this a Stroke Patient?: No Acute Heart Failure - Is this a Heart Failure Patient?: Yes Documentation of LVEF assessment?: Yes LVEF < 40%?: Yes-if yes answer questions a through e a) Discharged on ACEI?: Yes b) Discharges on ARB?: No-document contraindications c) Discharged on ARNI?: No-Document Contraindications d) Discharged on evidence-based Beta janet(carvedilol, sustained release metoprolol succinate, or bisoprolol)?: Yes e) For LVEF <35%, discharged on Aldosterone antagonist?: No-document contraincations 3. Anticoagulant therapy for permanect/persistent/paraoxysmal Afib or Aflutter: Yes
[2020-03-17 14:32] VITALS: BP 122/45
--- NOTE | 2020-03-17 18:57 | Progress Note ---
Provider Note Provider Note: CARDIOLOGY PROGRESS NOTE by Dr. Fidelina Salvador on 03/17/2020. SUBJECTIVE: The patient denies any chest pain or discomfort. There is no shortness of breath. There is no PND, or orthopnea. There is no leg edema. There is no arrhythmia seen. There is no TIA CVA symptoms. The patient cardiac status is very stable. Physical EXAMINATION: The patient is a frail build at present in no acute distress. Selected Entries 03/17/20 11:49 Temperature 98.1 F Temperature Oral Source Pulse Rate 72 Respiratory 16 Rate Blood Pressure 130/48 H Blood Pressure 75 Mean BP Location Left Arm BP Position Sitting O2 Sat by Pulse 94 Oximetry Oxygen Delivery Room Air Method HEAD: Is atraumatic normocephalic. EYES: Pupils are equal round regular reactive to light and accommodation. Extraocular movements are normal. There is no conjunctival pallor. There is no scleral icterus. EARS: Tympanic membranes are intact. External auditory canals are clear. NOSE: There is no deviated nasal septum. There is no inflammation nasal mucous membrane. MOUTH: Mucous membranes of the mouth are moist. Tongue is moist. There is no ulcers. There is no bleeding from the gums. THROAT: There is no redness of the oropharynx. There is no exudates. SKIN: There is no skin rashes. There is no petechia or ecchymosis. There is no skin lesions. NECK: Is supple. There is JVD present. There is prominent carotid pulsation. There is no lymphadenopathy. There is no accessory muscles of respiration use. Trachea central. LUNGS: Shows diminished air entry prolonged expiration. There is no rhonchi and no wheezing present. There is no definite rales of CHF. HEART: S1-S2 is heard. There is no S3 gallop. There is no S4 gallop. There is murmur of mitral regurgitation, tricuspid regurgitation, and aortic regurgitation present. There is significant peripheral signs of aortic regurgitation. Hence this is chronic aortic regurgitation and not acute aortic regurgitation. There is 'Pistol shot'sounds over the femoral arteries. There is 'Duroziers murmur'. There is also collapsing pulse. Today's exam the patient's collapsing pulse is much less obvious. Also there are other peripheral signs of AI are much prominent today.. There is no S3 gallop. There is no S4 gallop. There is no rub. ABDOMEN: Soft. There is hepatomegaly present. There is questionable hepatic pulsation. There is no definite splenomegaly. Bowel sounds are well heard. There is ascites present. EXTREMITIES: Femorals are diminished. There is bilateral femoral bruits as mentioned earlier. Leg pulses are diminished. There is no pedal edema. There is no DVT or cellulitis. There is no cyanosis or clubbing [employer]: The patient is conscious awake alert oriented x3 with no focal deficits. PSYCHIATRIC: Patient judgment insight are intact his affect is normal. Labs- All tests 24 hr 03/17/20 03/17/20 13:00 13:00 Urine Color YELLOW Urine Appearance CLEAR Urine pH 7.0 Ur Specific [place] 1.012 Urine Protein 100 H Urine Glucose (UA) NEGATIVE Urine Ketones NEGATIVE Urine Blood SMALL H Urine Nitrite NEGATIVE Urine Bilirubin NEGATIVE Urine Urobilinogen NEGATIVE Ur Leukocyte Esterase NEGATIVE Urine WBC (Auto) 1 Urine RBC (Auto) 7 Squamous Epi Cells Auto <1 Urine Creatinine 74.5 Protein/Creatinin Ratio 1.7 H Urine Total Protein 128.1 H Urine Ascorbic Acid NEGATIVE Chest X-Ray 03/10/20 12:44 IMPRESSION: BASILAR AIRSPACE DISEASE, INTERVAL WORSENING IN THE LEFT LUNG BASE. Chest X-Ray 03/11/20 06:00 IMPRESSION: Improved aeration of the inferolateral aspect of the right hemithorax. Otherwise unchanged radiographic appearance of the chest. Chest X-Ray 03/15/20 00:00 IMPRESSION: Mildly increased patchy right basilar opacities possibly atelectasis or infection. No overt pulmonary edema. Small stable bilateral effusions, right greater left. IMPRESSION/RECOMMENDATION: 1. Acute on chronic respiratory failure. This is a combination of acute exacerbation of severe COPD, possible pneumonia, and acute on chronic systolic heart failure and severe pulmonary hypertension. Patient is improved and is off the BiPAP and is on nasal cannula 2 L/min this is improved the acute phase is over. 2. Acute on chronic systolic heart failure: Continue the patient on dobutamine and Lasix drip. Continue patient metoprolol. We will continue Norvasc. In view of the GFR coming up to 56. 3. Acute exacerbation of COPD: Possible pneumonia: We will strongly recommend starting antibiotics. This is improved. 4. Severe aortic regurgitation: This seems to be a chronic aortic regurgitation with peripheral signs of AR. The patient much improved. We will stop the patient's dobutamine. 5. Moderate to severe mitral regurgitation. Continue treatment as mentioned for aortic regurgitation and cardiomyopathy 6. Cardiomyopathy with severely reduced LV ejection fraction: Continue metoprolol. The patient renal function is improved. Hence would recommend starting the patient on lisinopril and continuing beta-janet and nitrates. 7. Severe pulmonary hypertension: Continue the patient on current treatment. Would recommend adding amlodipine and hydralazine. 9. Acute renal failure: Avoid nephrotoxic drugs. Renal function is improving. 9. Coronary artery disease: History of old myocardial infarction: No evidence of anginal symptoms. Continue beta-blockers. Later would recommend adding Plavix. The patient is allergic to aspirin. If blood pressure allows add nitrates. 10. Normal liver function tests: This is probably secondary to multi valvular disease. And also patient probably has portal pulmonary hypertension. 11. Hypertension: At present blood pressure fairly controlled, but still is not optimally controlled. We will increase the patient's nitrates. 12. History of tobacco abuse and history of noncompliance with diet and medications, and office visits with physicians. Medications reviewed. Medical management medical regimen discussed with attending physician medical decision making is of moderate complexity. The patient's cardiac status is stable as also his pulmonary status. Hence can be discharged from my point of view. We will follow the patient in the office.. 40 minutes spent as patient more than 50% of time spent in direct patient care. Will follow patient in the office. Contact numbers given.
== END 2020-03-17 16:01 | disposition home or self-care (01) | DRG 189 ==
LOC: ER 12:40 → EH 16:35 → ICU 21:30 → 3S 03-15 14:12
PROVIDERS: ADMIT Anesthesiology; ATTEND Family Medicine
PROC: 5A09457 Assistance with Respiratory Ventilation, 24-96 Consecutive Hours, Continuous Positive Airway Pressure (ICD-10-PCS; principal; 2020-03-10)
DX: J96.21 Acute and chronic respiratory failure with hypoxia (principal); I50.23 Acute on chronic systolic (congestive) heart failure; J18.9 Pneumonia, unspecified organism; J44.1 Chronic obstructive pulmonary disease with (acute) exacerbation; N17.9 Acute kidney failure, unspecified; J44.0 Chronic obstructive pulmonary disease with (acute) lower respiratory infection; E87.2 Acidosis; I42.0 Dilated cardiomyopathy; I11.0 Hypertensive heart disease with heart failure; I27.20 Pulmonary hypertension, unspecified; I25.10 Atherosclerotic heart disease of native coronary artery without angina pectoris; J96.22 Acute and chronic respiratory failure with hypercapnia; I08.3 Combined rheumatic disorders of mitral, aortic and tricuspid valves; E78.5 Hyperlipidemia, unspecified; F17.210 Nicotine dependence, cigarettes, uncomplicated; I25.2 Old myocardial infarction; Z79.899 Other long term (current) drug therapy; Z79.02 Long term (current) use of antithrombotics/antiplatelets; Z85.038 Personal history of other malignant neoplasm of large intestine; Z90.49 Acquired absence of other specified parts of digestive tract; Z91.11 Patient's noncompliance with dietary regimen; Z91.14 Patient's other noncompliance with medication regimen; Z88.6 Allergy status to analgesic agent; Z20.828 Contact with and (suspected) exposure to other viral communicable diseases
CPT/HCPCS: 36415; 71045; 80048; 80053; 81001; 82550; 82553; 82570; 82728; 82803; 83605; 83690; 83735; 83880; 84132; 84156; 84484; 85025; 85379; 85610; 87040; 93005; 93010; 93306; 94640; 94660; 96365; 99291; J1160; J1205; J1250; J1644; J1940; J1956; J3490; J7050

== ENCOUNTER → 2020-07-25 | Outpatient (CLI) | payer MEDICARE, MEDICAID ==
[2020-07-25 15:00] LABS: ABSOLUTE BASOPHILS # (AUTO) 0.1 10^3/uL (0.0-0.2); ABSOLUTE EOSINOPHILS # (AUTO) 0.9 10^3/uL (0.0-0.6); ABSOLUTE MONOCYTES (AUTO) 0.5 10^3/uL (0.1-1.4); ABSOLUTE NEUT (AUTO) 3.6 10^3/uL (1.7-8.2); BASOPHILS % (AUTO) 0.8 % (0-2); EOSINOPHILS % (AUTO) 13.3 % (0-6); HEMATOCRIT 40.8 % (37.9-51.0); HEMOGLOBIN 14.3 g/dL (13.5-17.0); LYMPHOCYTES % (AUTO) 27.8 % (13-45); MEAN CORPUSCULAR HEMOGLOBIN 34.1 pg (27.0-33.4); MEAN CORPUSCULAR VOLUME 97 fl (80-97); MONOCYTES % (AUTO) 7.6 % (3-13); PLATELET COUNT 123 10^3/uL (150-450); SEGMENTED NEUTROPHILS % (AUTO) 50.5 % (42-78); TOTAL CELLS COUNTED % (AUTO) 100 %; WHITE BLOOD COUNT 7.1 10^3/uL (4.0-10.5)
[2020-07-25 15:04] LABS: PROTHROMBIN TIME 12.4 SEC (11.4-15.4)
[2020-07-25 15:05] LABS: PARTIAL THROMBOPLASTIN TIME 30.6 SEC (23.5-35.8)
[2020-07-25 15:28] LABS: ANION GAP 6 (5-19); BLOOD UREA NITROGEN 19 mg/dL (7-20); CARBON DIOXIDE 23 mmol/L (22-30); CHLORIDE 106 mmol/L (98-107); GLUCOSE 85 mg/dL (75-110); POTASSIUM 4.6 mmol/L (3.6-5.0)
== END ==
LOC: OD 13:21
PROVIDERS: ATTEND Specialist
DX: I25.10 Atherosclerotic heart disease of native coronary artery without angina pectoris (principal); I35.1 Nonrheumatic aortic (valve) insufficiency; I37.0 Nonrheumatic pulmonary valve stenosis; I10 Essential (primary) hypertension; I42.0 Dilated cardiomyopathy; F17.228 Nicotine dependence, chewing tobacco, with other nicotine-induced disorders; R94.31 Abnormal electrocardiogram [ECG] [EKG]; E78.5 Hyperlipidemia, unspecified; R06.00 Dyspnea, unspecified; R06.02 Shortness of breath; I27.20 Pulmonary hypertension, unspecified; I25.2 Old myocardial infarction; Z79.899 Other long term (current) drug therapy
CPT/HCPCS: 36415; 80051; 82565; 82947; 83735; 84520; 85025; 85610; 85730

== ENCOUNTER → 2020-08-06 | Day surgery (SDC) | payer MEDICARE, MEDICAID ==
[~2020-08-06] MED LIST: ASPIRIN 325 MG TABLET PO PRN; FENTANYL CITRATE INJ/PF 100 MCG/2 ML AMPUL ONE; HEPARIN SOD (PORCINE) 1,000 UNIT/ML 10 ML VIAL ONE; LIDOCAINE 1% INJ-PF (10 MG/ML) 30 ML SDV ONE; MIDAZOLAM 2 MG/2 ML INJ ONE; NORMAL SALINE 1000 ML 1,000 ML IV PRN; RADIAL COCKTAIL SYRINGE 10 ML IV PRN
[2020-08-06 07:56] VITALS: BP 159/62
--- NOTE | 2020-08-06 08:35 | EKG REPORT ---
SEVERITY:- ABNORMAL ECG - SINUS RHYTHM MULTIFORM VENTRICULAR PREMATURE COMPLEXES PROBABLE ANTEROSEPTAL INFARCT, OLD LATERAL LEADS ARE ALSO INVOLVED : Confirmed by: Fidelina Salvador MD 06-Aug-2020 08:34:45
== END ==
LOC: CCL 06:59
PROVIDERS: ATTEND Internal Medicine Cardiovascular Disease
DX: R94.31 Abnormal electrocardiogram [ECG] [EKG] (principal)
CPT/HCPCS: 93005; 93010; A9270; J1644; C1769; C1887; C1894; J2250; J3010; J3490

== ENCOUNTER 2020-08-13 07:18 | Day surgery (SDC) | payer MEDICARE, MEDICAID ==
[~2020-08-13 07:18] MED LIST changes: -ASPIRIN 325 MG TABLET PO PRN; -FENTANYL CITRATE INJ/PF 100 MCG/2 ML AMPUL ONE; -HEPARIN SOD (PORCINE) 1,000 UNIT/ML 10 ML VIAL ONE; -LIDOCAINE 1% INJ-PF (10 MG/ML) 30 ML SDV ONE; -MIDAZOLAM 2 MG/2 ML INJ ONE; -NORMAL SALINE 1000 ML 1,000 ML IV PRN; -RADIAL COCKTAIL SYRINGE 10 ML IV PRN; +VERAPAMIL HCL 5 MG, LIDOCAINE HCL/PF 4 ML, NORMAL SALINE 12 ML, NITROGLYCERIN/D5W 0.4 M... IV PRN
[2020-08-13] MEDS ORDERED: DIPHENHYDRAMINE HCL 25 MG CAPSULE PO PRN (07:40)
[2020-08-13] MEDS ORDERED: DIAZEPAM 5 MG TABLET PO PRN (07:41)
[2020-08-13] MEDS ORDERED: ASPIRIN 325 MG TABLET PO PRN (07:42)
[2020-08-13] MEDS ORDERED: MIDAZOLAM 2 MG/2 ML INJ ONE (07:48)
[2020-08-13] MEDS ORDERED: LIDOCAINE 1% INJ-PF (10 MG/ML) 30 ML SDV ONE (07:49)
[2020-08-13] MEDS ORDERED: FENTANYL CITRATE INJ/PF 100 MCG/2 ML AMPUL ONE (07:49)
[2020-08-13] MEDS ORDERED: HEPARIN SOD (PORCINE) 1,000 UNIT/ML 10 ML VIAL ONE (07:49)
[2020-08-13] MEDS ORDERED: HEPARIN SODIUM,PORCINE/NS/PF 2,000 UNIT/1,000 ML RTUINJ IV ONE (07:50)
[2020-08-13] MEDS ORDERED: DIPHENHYDRAMINE HCL 25 MG CAPSULE ONE (08:04)
[2020-08-13] MEDS ORDERED: DIAZEPAM 5 MG TABLET ONE (08:04)
[2020-08-13] MEDS ORDERED: ASPIRIN 325 MG TABLET ONE (08:05)
--- NOTE | 2020-08-13 11:38 | Operative Report ---
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 DESCRIPTION OF PROCEDURE: After informed consent was obtained the patient was brought into the cardiac catheterization lab. Sterile prep and drape of the right arm and groin was carried out followed by infiltration with 1% Xylocaine to the right radial arterial area for local anesthesia Using the percutaneous Seldinger technique, An 18 gauge IV was placed into the right antecubital vein and attempts to place a 6 Fr sheath through a placed IV site, but no venous return was obtained due to small caliber system and thus right heart cath was aborted as risk of femoral venous access felt higher than perceived benefit; a 6 [place] sheath was also placed in the right radial artery. Intermittent dosing of radial cocktail was administered to reduce spasm. 2500 units of heparin was administered venous to reduce risk of arterial occlusion. A Right heart catheterization was unable to be performed due ot lack of venous access as noted above with attempts for IV to sheath wire exchange. A 4 x 4 sterile gauze was then folded in fourths and applied to site with a Tegaderm to act as a pressure dressing until the conclusion of case, when it was removed and adequate hemostasis had been noted. Selective left and right coronary angiography was performed with a 6 [place] pre- formed coronary catheter (Ahmet, followed by a 6Fr JR 3.5 and a 6Fr JL4 , respectively ). A 6 [place] pigtail catheter was subsequently introduced in the artery and advanced to the ascending aorta. The aortic valve was attempted to be crossed, but due in part to a combination of patient's tortuousity of his right subclavian artery, less flexible HIGH MOBILITYtronic diagnostic catheters ( only ones available as opposed to other operational meteorologist or 5 [place]ayan or angled pigtail ). A 6 Fr AL1 preformed catheter was introduced to allow for LVED measurement, but Left Ventriculography could not be performed ( Patient has had a Echo and stress test ). RIGHT HEART DATA: Unable to obtain as noted above. Left ventricular systolic pressure was 160 mm Hg. End-diastolic pressure 7 mm Hg. Aortic systolic pressure 180 mm Hg. A Pull back could not be obtained, but the gradient was this measured as a peak to peak gradient of 20 mm Hg ( Mild Aortic Stenosis ). LEFT HEART DATA: ANALYSIS OF THE ANGIOGRAM: Selective CINE angiograms were obtained with the injection of contrast material into the left and right coronary ostium. CORONARY ANGIOGRAPHY: Coronary angiography performed in multiple projections revealed the following; LEFT MAIN: Angiographically patent. LEFT CIRCUMFLEX/OBTUSE MARGINAL: Appears to have a ostial and proximal area of 30 % mild plaque ( no obstructive lesions noted ) followed by three small PL bra nches without significant disease. LEFT ANTERIOR DESCENDING/DIAGONAL: Appears to have a 50 % plaque area at septal 1 takeoff. RIGHT CORONARY ARTERY: Dominant in nature and appears to have mild 20-30% irregularities in the proximal portion and gives rise to small caliber Right PDA and Right JACI without obstructive lesions. Moderate Conscious Sedation was carried out under continuous oxygen saturation, end tidal monitoring as well as continuous telemetry and intermittent hemodynamic non-invasive monitoring for a total of 15 Minutes in conjunction with a registered nruse in the room under my direct supervision. The right radial arterial sheath was then removed a a TR Band applied for adequate Hemostasis ( See TR Band Compression Orders ) The patient tolerated the procedure well and was transported to recovery area. Impression: Moderate mid LAD plaque Non-obstructive LCX and RCA plaque Mild Moderately-severe AI Plan: Continue risk factor modification Re-emphasize medication compliance for BP and risk factor modification Smoking cessation Defer to Primary / Referring Anesthesiology Faculty for consideration of AVR referral as discussed Cath Films to be made and available as well as report for Dr. Espinoza.
--- NOTE | 2020-08-13 15:58 | Progress Note ---
Provider Note Provider Note: CARDIOLOGY PROGRESS NOTE by Dr. Fidelina Salvador. SUBJECTIVE: The patient underwent cardiac catheterization. He is kept in observation without being admitted. This showed moderate to severe aortic regurgitation. There was a 50% LAD lesion. No significant coronary artery disease. The patient stable after cardi ac catheterization. Initially is pressure band on the right radial artery site of entry for the catheterization was taken but had to be pulled back due to patient having bleeding. At present the site is clean with no bleeding. The patient is stable he denies any chest pain or discomfort. There is no shortness of breath. There is no PND orthopnea or leg edema. We will send the films to Dr. Evan Alas to see if the patient is a candidate for TAVR. PHYSICAL EXAMINATION: The patient is a frail build in no acute distress Selected Entries 08/13/20 16:00 Temperature 98.9 F Temperature Oral Source Pulse Rate 96 Respiratory 15 Rate Blood Pressure 156/53 H [Left Upper Arm ] Blood Pressure 87 Mean [Left Upper Arm] Blood Pressure Supine Position [Left Upper Arm] O2 Sat by Pulse 95 Oximetry Oxygen Delivery Room Air Method ( includes room air) HEAD: Atraumatic normocephalic. Eyes: Pupils equal round regular reactive to light accommodation. Extraocular movements are normal. There is no conjunctival pallor. There is no scleral icterus. ENT is negative. Skin: Shows skin rashes there is no petechia or ecchymosis there is no skin lesion. NECK: Supple. There is no JVD. Carotids are equal there is no wheeze. There is no lymphadenopathy. There is no goiter. There is no axillary muscle respiration use. Trachea central. Lungs: Shows diminished air entry prolonged expiration without any rhonchi rales or wheezing. On percussion there is hyperresonance. HEART: S1-S2 is heard. There is no S3 gallop there is no S4 gallop. There is systolic murmur of mild aortic stenosis with preserved A2. There is murmur of aortic regurgitation present. There is no S3 gallop or S4 gallop. There is no rub. ABDOMEN: Soft. Nontender there is no hepatosplenomegaly.. Bowel sounds are well heard. EXTREMITIES: Femorals are diminished. There is no femoral bruits. There is no leg edema. There is no extensor covering. Cath site in the right wrist is clean and dry with no bleeding and no hematoma. 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 PSYCHIATRIC: Patient judgment and insight are intact his affect is normal. IMPRESSION/RECOMMENDATION: 1. S/p cardiac catheterization. Patient stable. 2. Nonobstructive coronary artery disease with mild stenosis. 3. Moderate to severe aortic regurgitation. 4. Mild aortic stenosis. 5. COPD: Stable no evidence of acute decompensation. 6. History of hypertension . 7. Dilated cardiomyopathy: Stable no evidence of heart failure 8. History of cirrhosis of the liver secondary to alcohol abuse. The patient is stopped alcohol use since some time. The patient is stable post catheterization. We will discharge the patient home. We will follow-up the patient in the office. We will send the films to Dr. Frankie Bang to see if the patient is a candidate for TAVR. Discussed cardiac catheterization findings with the patient and patient's . Medical decision making is of moderate complexity. 40 minutes spent as patient more than 50% of time spent in direct patient care. Will follow up
[2020-08-13 16:16] VITALS: BP 156/53
== END 2020-08-13 17:38 | disposition home or self-care (01) ==
LOC: CCL 07:18 → 3W 12:01 → CCL 17:38
PROVIDERS: ATTEND Internal Medicine Cardiovascular Disease
DX: I25.10 Atherosclerotic heart disease of native coronary artery without angina pectoris (principal); R06.00 Dyspnea, unspecified; I42.9 Cardiomyopathy, unspecified; I35.8 Other nonrheumatic aortic valve disorders
CPT/HCPCS: 93454; C1769; C1894; C1887; J2250; A9270 ×3; J3010; J1644 ×2; J3490 ×5

== ENCOUNTER 2020-09-26 15:58 | Inpatient (IN) | payer MEDICARE, MEDICAID ==
[2020-09-26 16:31] LABS: ABSOLUTE BASOPHILS # (AUTO) 0.1 10^3/uL (0.0-0.2); ABSOLUTE LYMPHOCYTES (AUTO) 1.9 10^3/uL (0.5-4.7); ABSOLUTE MONOCYTES (AUTO) 0.8 10^3/uL (0.1-1.4); ABSOLUTE NEUT (AUTO) 6.7 10^3/uL (1.7-8.2); BASOPHILS % (AUTO) 0.7 % (0-2); EOSINOPHILS % (AUTO) 0.3 % (0-6); HEMATOCRIT 37.2 % (37.9-51.0); HEMOGLOBIN 12.4 g/dL (13.5-17.0); LYMPHOCYTES % (AUTO) 19.8 % (13-45); MEAN CORPUSCULAR HEMOGLOBIN 33.9 pg (27.0-33.4); MEAN CORPUSCULAR HGB CONC 33.3 g/dL (32.0-36.0); MEAN CORPUSCULAR VOLUME 102 fl (80-97); MONOCYTES % (AUTO) 8.7 % (3-13); PLATELET COUNT 128 10^3/uL (150-450); RED BLOOD COUNT 3.66 10^6/uL (4.35-5.55); RED CELL DISTRIBUTION WIDTH 13.1 % (11.5-14.0); SEGMENTED NEUTROPHILS % (AUTO) 70.5 % (42-78); TOTAL CELLS COUNTED % (AUTO) 100 %; WHITE BLOOD COUNT 9.5 10^3/uL (4.0-10.5)
[2020-09-26 16:56] LABS: ALKALINE PHOSPHATASE 91 U/L (38-126); ANION GAP 13 (5-19); ASPARTATE AMINO TRANSFERASE 45 U/L (17-59); BILIRUBIN,DIRECT 0.2 mg/dL (0.0-0.4); BILIRUBIN,TOTAL 1.3 mg/dL (0.2-1.3); BLOOD UREA NITROGEN 29 mg/dL (7-20); CALCIUM 9.9 mg/dL (8.4-10.2); CARBON DIOXIDE 19 mmol/L (22-30); CHLORIDE 103 mmol/L (98-107); CREATINE KINASE 77 U/L (55-170); GLUCOSE 236 mg/dL (75-110); POTASSIUM 4.2 mmol/L (3.6-5.0); TOTAL PROTEIN 7.1 g/dL (6.3-8.2)
--- NOTE | 2020-09-26 17:07 | RADIOLOGY REPORT (SQ) ---
EXAM DESCRIPTION: CHEST SINGLE VIEW IMAGES COMPLETED DATE/TIME: 09/26/2020 3:40 pm REASON FOR STUDY: sob. COMPARISON: 03/15/2020 EXAM PARAMETERS: NUMBER OF VIEWS: One view. TECHNIQUE: Single frontal radiographic view of the chest acquired. RADIATION DOSE: NA LIMITATIONS: None. FINDINGS: LUNGS AND PLEURA: The lungs are hyperinflated. Patchy bibasilar opacities are improved fr om prior, probably chronic pleural and parenchymal scarring. Resolved effusions. No pneumothorax. MEDIASTINUM AND HILAR STRUCTURES: No masses. Contour normal. HEART AND VASCULAR STRUCTURES: Heart normal in size. Normal vasculature. BONES: No acute findings. HARDWARE: None in the chest. OTHER: No other significant finding. IMPRESSION: No acute cardiopulmonary disease. Chronic pleural and parenchymal scarring, improved fr om prior. Hyperinflated lungs which can be seen with obstructive lung disease. TECHNICAL DOCUMENTATION: JOB ID: [id number] 2010 [employer]- All Rights Reserved Reading location - IP/workstation name: [email or web address]
--- NOTE | 2020-09-26 17:56 | ER Document Report ---
ED General - General Chief Complaint: Breathing Difficulty Stated Complaint: DIFFICULTY BREATHING Time Seen by Provider: 09/26/20 17:40 Mode of Arrival: Ambulatory Information source: Patient, Emergency Med Personnel Notes: Patient is a 70-year-old male comes emergency room via EMS complaining of increasing shortness of breath. Patient states he felt good up until yesterday and then he started having more discomfort and increasing shortness of breath. He denies being on oxygen at home. He has a long history of chronic COPD he denies any fevers denies any contact with coronavirus positive people. Patient states that overnight he was unable to really sleep. It was reported by EMS th at when they got there patient was barely moving any air they gave him 0.3 of epi they gave him 2 g of mag 125 Solu-Medrol and a DuoNeb. When he got to the emergency room respiratory placed him on BiPAP of 12/6 and 50%. Patient is currently resting more comfortably but states he is still short of breath denies any chest pain. Patient does admit to continuing to smoke. Denies any history of diabetes. States that last time he was in the hospital he had a pneumonia. TRAVEL OUTSIDE OF THE [place] IN LAST 30 DAYS: No - HPI Onset: Yesterday Onset/Duration: Sudden, Persistent, Worse Quality of pain: Achy Severity: Severe Pain Level: 4 Context: Short of breath secondary to respiratory decline Associated symptoms: Nausea, Shortness of breath, Weakness. denies: Chest pain, Chills, Nonproductive cough, Productive cough, Fever, Headache, Leg swelling Exacerbated by: Movement Relieved by: Denies Similar symptoms previously: Yes Recently seen / treated by doctor: No - Related Data Allergies/Adverse Reactions: aspirin Adverse Reaction (Severe, Verified 09/26/20 19:19) BLEEDING Past Medical History - General Information source: Patient - Social History Smoking Status: Current Every Day Smoker Cigarette use (# per day): Yes - Half pack Chew tobacco use (# tins/day): No Smoking Education Provided: Yes Frequency of alcohol use: None Drug Abuse: None Family History: Reviewed & Not Pertinent - Past Medical History Cardiac Medical History: Reports: Hx Coronary Artery Disease, Hx Heart Attack - 1979, Hx Hypercholesterolemia, Hx Hypertension Pulmonary Medical History: Reports: Hx Bronchitis, Hx COPD, Hx Pneumonia Denies: Hx Asthma Neurological Medical History: Denies: Hx Cerebrovascular Accident, Hx Seizures Renal/ Medical History: Denies: Hx Peritoneal Dialysis Malignancy Medical History: Reports Hx Colorectal Cancer - Status post partial colectomy Musculoskeletal Medical History: Reports Hx Arthritis Psychiatric Medical History: Reports: Hx Depression Past Surgical History: Reports: Hx Abdominal Surgery - CA, Other - Partial colectomy 3 years ago for colon cancer - Immunizations Hx Diphtheria, Pertussis, Tetanus Vaccination: Yes Review of Systems - Review of Systems Constitutional: See HPI, Weakness. denies: Fever EENT: No symptoms reported Cardiovascular: No symptoms reported Respiratory: No symptoms reported, Short of breath. denies: Hemoptysis, Sputum, Wheezing Gastrointestinal: No symptoms reported Genitourinary: No symptoms reported Male Genitourinary: No symptoms reported Musculoskeletal: No symptoms reported Skin: No symptoms reported Hematologic/Lymphatic: No symptoms reported Neurological/Psychological: No symptoms reported -: Yes All other systems reviewed and negative Physical Exam - Vital signs Vitals: Temp 98.3 F 09/26/20 15:58 Interpretation: Hypertensive, Tachypneic - Notes Notes: PHYSICAL EXAMINATION: GENERAL: Patient is a frail-appearing 70-year-old male who by the time I was in to examine him was on BiPAP and was looking improved from the report given to me by nurse. Patient still is mildly short of breath he is actually increased his heart rate 214 beats a minute but blood pressures come down to more normalized level. HEAD: Atraumatic, normocephalic. EYES: Pupils equal round and reactive to light, extraocular movements intact, sclera anicteric, conjunctiva are normal. ENT: Nares patent, oropharynx clear without exudates. Moist mucous membranes. NECK: Normal range of motion, supple without lymphadenopathy LUNGS: Auscultation patient's lungs show bilateral breath sounds decreased throughout no rhonchi or rales are heard on auscultation. There is also no inspiratory or expiratory wheeze noted. i. HEART: Tachycardic rate and rhythm without murmurs ABDOMEN: Soft, nontender, nondistended abdomen. No guarding, no rebound. No masses appreciated. Musculoskeletal: Normal range of motion, no pitting or edema. No cyanosis. NEUROLOGICAL:. Normal speech, normal gait. Normal sensory, motor exams PSYCH: Normal mood, normal affect. SKIN: Warm, Dry, normal turgor, no rashes or lesions noted. Course - Re-evaluation Re-evalutation: 09/27/20 01:50 Patient length of stay was extended because he was on BiPAP and there is a delay in getting the BNP. Patient was found to have a elevated BNP and was given Lasix. I contacted the hospitalist who agreed that admission was appropriate and patient was admitted to hospitalist services. - Vital Signs Vital signs: Temp Pulse Resp BP Pulse Ox 98.0 F 95 24 H 151/62 H 97 09/26/20 23:38 09/27/20 00:40 09/26/20 23:01 09/26/20 23:01 09/26/20 23:01 - Laboratory Result Diagrams: 09/26/20 16:14 09/26/20 16:14 Laboratory results interpreted by me: 09/26/20 09/26/20 09/26/20 16:14 16:14 16:14 RBC 3.66 L Hgb 12.4 L Hct 37.2 L MCV 102 H MCH 33.9 H Plt Count 128 L Carbonic Acid ABG pCO2 ABG pO2 ABG HCO3 ABG Total CO2 ABG O2 Saturation Sodium 135.0 L Carbon Dioxide 19 L BUN 29 H Creatinine 1.60 H Est GFR ( Amer) 52 L Est GFR (MDRD) Non-Af 43 L Glucose 236 H Magnesium CK-MB (CK-2) 11.10 H NT-Pro-B Natriuret Pep 09/26/20 09/26/20 09/26/20 16:14 16:14 19:00 RBC Hgb Hct MCV MCH Plt Count Carbonic Acid 0.85 L ABG pCO2 28.1 L ABG pO2 112.4 H ABG HCO3 16.6 L ABG Total CO2 17.5 L ABG O2 Saturation 98.1 H Sodium Carbon Dioxide BUN Creatinine Est GFR ( Amer) Est GFR (MDRD) Non-Af Glucose Magnesium 3.4 H CK-MB (CK-2) NT-Pro-B Natriuret Pep 521920 H Discharge - Discharge Clinical Impression: Respiratory insufficiency CHF (congestive heart failure) Qualifiers: Heart failure type: unspecified Heart failure chronicity: acute on chronic Qualified Code(s): I50.9 - Heart failure, unspecified COPD (chronic obstructive pulmonary disease) Qualifiers: COPD type: unspecified COPD Qualified Code(s): J44.9 - Chronic obstructive pulmonary disease, unspecified Disposition: ADMITTED INPATIENT Admitting Provider: Huma (Hospitalist) Unit Admitted: IMCU
[2020-09-26 19:39] LABS: ARTERIAL BLOOD H2CO3 0.85 mmol/L (1.05-1.35); ARTERIAL BLOOD HCO3 16.6 mmol/L (20-24); ARTERIAL BLOOD O2 SATURATION 98.1 % (94-98); ARTERIAL BLOOD PCO2 28.1 mmHg (35-45); ARTERIAL BLOOD PH 7.39 (7.35-7.45); ARTERIAL BLOOD PO2 112.4 mmHg (80-100); ARTERIAL BLOOD TOTAL CO2 17.5 mmol/L (23-27)
[2020-09-26 19:42] LABS: ARTERIAL BLOOD FIO2 30%
[2020-09-26] MEDS ORDERED: FUROSEMIDE INJ/PF 40 MG/4 ML SDV IV ONE (20:40)
[2020-09-26] MEDS ORDERED: NITROGLYCERIN 2% OINTMENT 1 GM PACKET TP ONE (20:41)
[2020-09-26] MEDS ORDERED: ONDANSETRON HCL INJ/PF 4 MG/2 ML SDV IV PRN (22:28)
[2020-09-26] MEDS ORDERED: ONDANSETRON 4 MG TAB.RAPDIS PO PRN (22:28)
[2020-09-26] MEDS ORDERED: IPRATROPIUM/ALBUTEROL 0.5-2.5 MG/3 ML AMPUL NEB PRN (22:28)
[2020-09-26] MEDS ORDERED: ACETAMINOPHEN 325 MG TABLET PO PRN (22:28)
[2020-09-26] MEDS ORDERED: ALBUTEROL SULFATE HFA (90 MCG/PUFF) 8 GM MDI (1 MDI/ER DISP) IH PRN (22:32)
--- NOTE | 2020-09-26 22:46 | PDOC H&P ---
History of Present Illness Admission Date/PCP: 09/26/20 22:13 History of Present Illness: GERONIMO BROWN is a 70 year old male with past medical history significant for combined systolic and diastolic CHF, COPD, ongoing tobacco abuse, CKD 3B, hypertension, CAD who presents to the ED via EMS for 2-day history of progressive shortness of breath/IBANEZ/orthopnea which was unresponsive to home medications. Patient denies any fever/chills/nausea/vomiting/diarrhea/abdominal pain/sick contacts/COVID-19 exposure. He denies running out of any of his medications. Per ED, EMS gave the patient racemic epi, Solu-Medrol, magnesium and placed the patient on BiPAP. His CO2 on ABG in the field reportedly was in the 50s and then after admission it was rechecked on BiPAP and was in the high 2 0s. Patient has a very mild amount of wheezing and overall does not move air very much in general. His lower extremities have +1 to +2 pitting edema but his right leg seems to be significantly worse than his left. He denies any pain in his legs. Patient's recent echocardiogram showed an EF of approximately 20% and patient notes being seen by his jewel hole gauger recently who told him he has valvul ar insufficiency that requires interventional cardiology referral however the patient states this referral was never made. Patient be admitted to IMCU on BiPAP, n.p.o. while he is using BiPAP, echocardiogram ordered, PVL lower extremities to rule out DVT/PE, IV Lasix, prednisone burst for 5 days, nebulizer treatments, supplemental oxygen, bronchial hygiene. Past Medical History Cardiac Medical History: Reports: Coronary Artery Disease, Myocardial Infarction - 1979, Hyperlipidema, Hypertension Pulmonary Medical History: Reports: Bronchitis, Chronic Obstructive Pulmonary Disease (COPD), Pneumonia Denies: Asthma Neurological Medical History: Denies: Seizures Malignancy Medical History: Reports: Colorectal Cancer - Status post partial colectomy Musculoskeltal Medical History: Reports: Arthritis Psychiatric Medical History: Reports: Depression Hematology: Denies: Anemia Past Surgical History Past Surgical History: Reports: Other - Partial colectomy 3 years ago for colon cancer Social History Information Source: Patient, Emergency Med Personnel Smoking Status: Current Every Day Smoker Frequency of Alcohol Use: Occasional Hx Recreational Drug Use: No Drugs: None Hx Prescription Drug Abuse: No - Advance Directive Resuscitation Status: Full Code Surrogate healthcare decision maker:: Admitting diagnosis: Acute on chronic systolic and diastolic CHF exacerbation All aspects of code status discussed with patient/POA including cardioversion, chest compressions, and intubation and the patient/POA indicated they wish to be full code MPOA is designated as: Farrah Wong Time spent: Greater than 16 minutes Family History Family History: Reviewed & Not Pertinent, Malignancy Parental Family History Reviewed: Yes Children Family History Reviewed: Yes Sibling(s) Family History Reviewed.: Yes Medication/Allergy Home Medications: Clopidogrel Bisulfate [Plavix 75 mg Tablet] 75 mg PO DAILY #30 tablet 03/17/20 Furosemide [Lasix 40 mg Tablet] 40 mg PO BID #60 tablet 03/17/20 Albuterol Sulfate [Ventolin Hfa 8 gm Mdi (1 Mdi/ER Disp)] 2 puff IH Q4HP PRN 08/06/20 Amlodipine Besylate [Norvasc 5 mg Tablet] 5 mg PO DAILY 08/06/20 Lisinopril 40 mg PO DAILY 08/06/20 Multivitamin [Multivitamins] 1 cap PO DAILY 08/06/20 Metoprolol Succinate [Toprol Xl 25 mg Tab.sr] 25 mg PO Q12 08/13/20 Allergies/Adverse Reactions: aspirin Adverse Reaction (Severe, Verified 09/26/20 19:19) BLEEDING Review of Systems All systems: reviewed and no additional remarkable complaints except as stated - Per HPI otherwise negative Physical Exam Vital Signs: Temp Pulse Resp BP Pulse Ox 98.3 F 25 H 159/63 H 99 09/26/20 16:09 09/26/20 19:20 09/26/20 19:01 09/26/20 19:20 Intake & Output 09/25/20 09/26/20 09/27/20 06:59 06:59 06:59 Weight 75 kg Exam: General appearance: PRESENT: Cooperative and conversant, chronically ill- appearing white male, in mild respiratory distress on BiPAP Head exam: PRESENT: atraumatic, normocephalic Eye exam: PRESENT: conjunctiva pink. ABSENT: scleral icterus Mouth exam: PRESENT: moist Respiratory exam: PRESENT: Very scant crackles at bases, minimal wheezing Cardiovascular exam: PRESENT: RRR. ABSENT: diastolic murmur, rubs, systolic murmur; BLE +1 pitting edema worse on the right GI/Abdominal exam: PRESENT: normal bowel sounds, soft. ABSENT: distended, guarding, mass, organolmegaly, rebound, tenderness Neurological exam: PRESENT: alert, awake, oriented to person, oriented to place, oriented to time, oriented to situation Psychiatric exam: PRESENT: appropriate affect, normal mood Skin exam: PRESENT: dry, intact, warm Results Laboratory Results: 09/26/20 16:14 09/26/20 16:14 09/26/20 09/26/20 09/26/20 16:14 16:14 16:14 WBC 9.5 RBC 3.66 L Hgb 12.4 L Hct 37.2 L MCV 102 H MCH 33.9 H MCHC 33.3 RDW 13.1 Plt Count 128 L Seg Neutrophils % 70.5 Carbonic Acid HCO3/H2CO3 Ratio ABG pH ABG pCO2 ABG pO2 ABG HCO3 ABG O2 Saturation ABG Base Excess FiO2 Sodium 135.0 L Potassium 4.2 Chloride 103 Carbon Dioxide 19 L Anion Gap 13 BUN 29 H Creatinine 1.60 H Est GFR ( Amer) 52 L Glucose 236 H Calcium 9.9 Magnesium 3.4 H Total Bilirubin 1.3 AST 45 Alkaline Phosphatase 91 Total Protein 7.1 Albumin 4.0 09/26/20 19:00 WBC RBC Hgb Hct MCV MCH MCHC RDW Plt Count Seg Neutrophils % Carbonic Acid 0.85 L HCO3/H2CO3 Ratio 19:1 ABG pH 7.39 ABG pCO2 28.1 L ABG pO2 112.4 H ABG HCO3 16.6 L ABG O2 Saturation 98.1 H ABG Base Excess -7.0 FiO2 30% Sodium Potassium Chloride Carbon Dioxide Anion Gap BUN Creatinine Est GFR ( Amer) Glucose Calcium Magnesium Total Bilirubin AST Alkaline Phosphatase Total Protein Albumin 09/26/20 09/26/20 09/26/20 16:14 16:14 16:14 Creatine Kinase 77 CK-MB (CK-2) 11.10 H NT-Pro-B Natriuret Pep [id number] H Impressions: Chest X-Ray 09/26/20 16:00 IMPRESSION: No acute cardiopulmonary disease. Chronic pleural and parenchymal scarring, improved from prior. Hyperinflated lungs which can be seen with obstructive lung disease. Assessment and Plan - Diagnosis (1) Acute on chronic combined systolic (congestive) and diastolic (congestive) heart failure Is this a current diagnosis for this admission?: Yes Plan: Previous echo showed EF 20% with advanced systolic and diastolic heart failure as well Repeat echocardiogram to look for worsening valvular insufficiency, may need cardiology consult IV Lasix twice daily Home cardiac medications restarted BiPAP until fluid overload resolved BNP 149,000 EKG no acute changes CK-MB elevated although ED did not draw troponin; troponin pending now (2) Acute exacerbation of chronic obstructive pulmonary disease (COPD) Is this a current diagnosis for this admission?: Yes Plan: Minimal wheezing on exam, likely CHF and COPD set each other off whenever he h as respiratory failure 40 mg prednisone daily burst for 5 days Scheduled duo nebs and as needed as well BiPAP as needed Supplemental oxygen to maintain saturation 89 to 92% in the setting of COPD and CO2 retention Patient needs follow-up with pulmonology outpatient (3) Acute on chronic respiratory failure with hypoxemia Is this a current diagnosis for this admission?: Yes Plan: Multifactorial due to COPD and CHF exacerbations Treatment as above (4) Bilateral lower extremity edema Is this a current diagnosis for this admission?: Yes Plan: Both lower extremities with edema however right lower extremity significantly larger than left PVL BLE to rule out DVT (5) Stage 3b chronic kidney disease Is this a current diagnosis for this admission?: Yes Plan: Previous creatinine value typically s range between 1.2 and 1.9; current creatinine 1.6, possible some mild cardiorenal MARTHA but likely at or near his baseline Trend BMP Diuresis (6) Coronary artery disease Qualifiers: Coronary Disease-Associated Artery/Lesion type: [place] artery [place] vs. transplanted heart: [place] heart Associated angina: without angina Qualified Code(s): I25.10 - Atherosclerotic heart disease of [place] coronary artery without angina pectoris Is this a current diagnosis for this admission?: Yes Plan: No chest pain Continue cardiac medications (7) Tobacco dependence Is this a current diagnosis for this admission?: Yes Plan: Counseled on cessation, patient states he stopped smoking when he became extremely ill but otherwise smokes every day - Time Time Spent with patient: 35 or more minutes Smoking Cessation Education: 3 to 10 minutes Medications reviewed and adjusted accordingly: Yes Anticipated Discharge Disposition: Home, Self Care Anticipated Discharge Timeframe: within 72 hours - Inpatient Certification Based on my medical assessment, after consideration of the patient's comorbidities, presenting symptoms, or acuity I expect that the services needed warrant INPATIENT care.: Yes I certify that my determination is in accordance with my understanding of Medicare's requirements for reasonable and necessary INPATIENT services [42 CFR 412.3e].: Yes Medical Necessity: Significant Comorbidiites Make Outpatient Treatment Too Risky, Need Close Monitoring Due to Risk of Patient Decompensation, Need for Nebulizer Therapy and Monitoring of Response, Risk of Complication if Not Cared For in Hospital, Risk of Diagnosis Which Will Require Inpatient Eval/Care/Monitoring
[2020-09-26] MEDS: PREDNISONE 20 MG TABLET PO SCH (23:32)
[2020-09-26] MEDS: FUROSEMIDE INJ/PF 40 MG/4 ML SDV IV SCH (23:32)
[2020-09-26] MEDS: IPRATROPIUM/ALBUTEROL 0.5-2.5 MG/3 ML AMPUL NEB SCH (23:32)
[2020-09-26] MEDS: METOPROLOL SUCCINATE 25 MG TAB.SR.24H PO SCH (23:32)
--- NOTE | 2020-09-27 00:37 | EKG REPORT ---
SEVERITY:- ABNORMAL ECG - SINUS RHYTHM LVH WITH IVCD AND SECONDARY REPOL ABNRM : Confirmed by: Lainey Field 27-Sep-2020 00:35:38
[2020-09-27 01:14] LABS: APPEARANCE,URINE CLEAR; BILIRUBIN,URINE NEGATIVE (NEGATIVE); COLOR,URINE YELLOW; GLUCOSE, URINE NEGATIVE (NEGATIVE); KETONES,URINE NEGATIVE (NEGATIVE); LEUKOCYTE ESTERASE,URINE NEGATIVE (NEGATIVE); NITRITE,URINE NEGATIVE (NEGATIVE); PROTEIN,URINE >=500 mg/dL (NEGATIVE); URINE SPECIFIC GRAVITY 1.011; UROBILINOGEN,URINE NEGATIVE mg/dL (<2.0)
[2020-09-27] MEDS ORDERED: HEPARIN SOD (PORCINE) 1,000 UNIT/ML 10 ML VIAL IV ONE (04:35)
[2020-09-27] MEDS ORDERED: HEPARIN SODIUM,PORCINE/D5W 25,000 UNIT/250 ML RTUINJ IV PRN (04:35)
[2020-09-27 05:49] LABS: INTERNATIONAL RATION (INR) 0.97; PROTHROMBIN TIME 13.1 SEC (11.4-15.4)
[2020-09-27 05:54] LABS: ABSOLUTE LYMPHOCYTES (AUTO) 0.4 10^3/uL (0.5-4.7); ABSOLUTE MONOCYTES (AUTO) 0.3 10^3/uL (0.1-1.4); ABSOLUTE NEUT (AUTO) 5.2 10^3/uL (1.7-8.2); BASOPHILS % (AUTO) 0.3 % (0-2); HEMATOCRIT 30.6 % (37.9-51.0); HEMOGLOBIN 10.6 g/dL (13.5-17.0); LYMPHOCYTES % (AUTO) 6.4 % (13-45); MEAN CORPUSCULAR HEMOGLOBIN 34.6 pg (27.0-33.4); MEAN CORPUSCULAR HGB CONC 34.6 g/dL (32.0-36.0); MEAN CORPUSCULAR VOLUME 100 fl (80-97); MONOCYTES % (AUTO) 4.7 % (3-13); PLATELET COUNT 100 10^3/uL (150-450); RED BLOOD COUNT 3.06 10^6/uL (4.35-5.55); RED CELL DISTRIBUTION WIDTH 13.2 % (11.5-14.0); SEGMENTED NEUTROPHILS % (AUTO) 88.6 % (42-78); TOTAL CELLS COUNTED % (AUTO) 100 %; WHITE BLOOD COUNT 5.9 10^3/uL (4.0-10.5)
[2020-09-27] MEDS ORDERED: HEPARIN SOD (PORCINE) 5,000 UNIT/ML 1 ML VIAL SUBCUT SCH (06:00)
[2020-09-27 06:07] LABS: ANION GAP 9 (5-19); BLOOD UREA NITROGEN 40 mg/dL (7-20); CALCIUM 9.1 mg/dL (8.4-10.2); CARBON DIOXIDE 21 mmol/L (22-30); CHLORIDE 105 mmol/L (98-107); GLUCOSE 156 mg/dL (75-110); PHOSPHORUS 4.7 mg/dL (2.5-4.5); POTASSIUM 4.3 mmol/L (3.6-5.0)
[2020-09-27] MEDS: CLOPIDOGREL BISULFATE 75 MG TABLET PO SCH (07:04)
[2020-09-27] MEDS: IPRATROPIUM/ALBUTEROL 0.5-2.5 MG/3 ML AMPUL NEB SCH ×4 (07:28→19:37)
[2020-09-27] MEDS ORDERED: CLOPIDOGREL BISULFATE 75 MG TABLET PO SCH (10:00)
[2020-09-27] MEDS: AMLODIPINE BESYLATE 5 MG TABLET PO SCH (11:08)
[2020-09-27] MEDS: MULTIVITAMIN TABLET PO SCH (11:09)
[2020-09-27] MEDS: METOPROLOL SUCCINATE 25 MG TAB.SR.24H PO SCH ×2 (11:09→22:35)
[2020-09-27] MEDS: DOCUSATE SODIUM 100 MG CAPSULE PO SCH (11:09)
[2020-09-27] MEDS: PREDNISONE 20 MG TABLET PO SCH (11:10)
[2020-09-27] MEDS: LISINOPRIL 10 MG TABLET PO SCH (11:11)
[2020-09-27] MEDS: FUROSEMIDE INJ/PF 40 MG/4 ML SDV IV SCH ×2 (11:49→22:35)
--- NOTE | 2020-09-27 14:32 | PDOC PROGRESS REPORT ---
Subjective Date:: 09/27/20 Subjective:: Patient is sitting on the edge of the bed eating lunch. He complains of product madhu cough every morning. He has inhalers but evidently utilizes them on a as needed basis. He is not sure if he has an inhaler that he is supposed to use on a scheduled basis. Reason For Visit: ACUTE ON CHRONIC COMBINED SYSTOLIC AND DIASTOLIC Physical Exam Vital Signs: Temp Pulse Resp BP Pulse Ox 97.4 F 94 16 133/63 H 97 09/27/20 12:04 09/27/20 12:04 09/27/20 12:04 09/27/20 12:04 09/27/20 12:04 Intake & Output 09/26/20 09/27/20 09/28/20 06:59 06:59 06:59 Intake Total 260 Balance 260 Weight 80.4 kg General appearance: PRESENT: no acute distress, cooperative, well-developed Head exam: PRESENT: atraumatic, normocephalic Neck exam: PRESENT: lymphadenopathy. ABSENT: carotid bruit, JVD Respiratory exam: PRESENT: clear to auscultation melisa, symmetrical, unlabored. ABSENT: rales, rhonchi, tachypnea, wheezes Cardiovascular exam: PRESENT: RRR, +S1, +S2. ABSENT: bradycardia, diastolic murmur, irregular rhythm, systolic murmur, tachycardia GI/Abdominal exam: PRESENT: normal bowel sounds, soft. ABSENT: distended, guarding, tenderness Rectal exam: PRESENT: deferred Gentrourinary exam: ABSENT: indwelling catheter Extremities exam: ABSENT: pedal edema Musculoskeletal exam: PRESENT: ambulatory, normal inspection. ABSENT: deformity, dislocation Neurological exam: PRESENT: alert, awake, oriented to person, oriented to place, oriented to time, oriented to situation, CN II-XII grossly intact. ABSENT: altered Psychiatric exam: PRESENT: appropriate affect. ABSENT: agitated, anxious Focused psych exam: ABSENT: delusional, paranoid, restlessness Skin exam: PRESENT: dry, normal color, warm. ABSENT: rash Results Laboratory Results: 09/27/20 05:30 09/27/20 05:30 09/26/20 09/26/20 09/26/20 16:14 16:14 16:14 WBC 9.5 RBC 3.66 L Hgb 12.4 L Hct 37.2 L MCV 102 H MCH 33.9 H MCHC 33.3 RDW 13.1 Plt Count 128 L Seg Neutrophils % 70.5 Carbonic Acid HCO3/H2CO3 Ratio ABG pH ABG pCO2 ABG pO2 ABG HCO3 ABG O2 Saturation ABG Base Excess FiO2 Sodium 135.0 L Potassium 4.2 Chloride 103 Carbon Dioxide 19 L Anion Gap 13 BUN 29 H Creatinine 1.60 H Est GFR ( Amer) 52 L Glucose 236 H Calcium 9.9 Phosphorus Magnesium 3.4 H Total Bilirubin 1.3 AST 45 Alkaline Phosphatase 91 Total Protein 7.1 Albumin 4.0 Urine Color Urine Appearance Urine pH Ur Specific [place] Urine Protein Urine Glucose (UA) Urine Ketones Urine Blood Urine Nitrite Ur Leukocyte Esterase Urine WBC (Auto) Urine RBC (Auto) 09/26/20 09/27/20 09/27/20 19:00 01:00 05:30 WBC RBC Hgb Hct MCV MCH MCHC RDW Plt Count Seg Neutrophils % Carbonic Acid 0.85 L HCO3/H2CO3 Ratio 19:1 ABG pH 7.39 ABG pCO2 28.1 L ABG pO2 112.4 H ABG HCO3 16.6 L ABG O2 Saturation 98.1 H ABG Base Excess -7.0 FiO2 30% Sodium 135.0 L Potassium 4.3 Chloride 105 Carbon Dioxide 21 L Anion Gap 9 BUN 40 H Creatinine 1.71 H Est GFR ( Amer) 48 L Glucose 156 H Calcium 9.1 Phosphorus 4.7 H Magnesium 2.7 H Total Bilirubin AST Alkaline Phosphatase Total Protein Albumin Urine Color YELLOW Urine Appearance CLEAR Urine pH 5.0 Ur Specific [place] 1.011 Urine Protein >=500 H Urine Glucose (UA) NEGATIVE Urine Ketones NEGATIVE Urine Blood SMALL H Urine Nitrite NEGATIVE Ur Leukocyte Esterase NEGATIVE Urine WBC (Auto) 0 Urine RBC (Auto) 0 09/27/20 05:30 WBC 5.9 RBC 3.06 L Hgb 10.6 L Hct 30.6 L MCV 100 H MCH 34.6 H MCHC 34.6 RDW 13.2 Plt Count 100 L Seg Neutrophils % 88.6 H Carbonic Acid HCO3/H2CO3 Ratio ABG pH ABG pCO2 ABG pO2 ABG HCO3 ABG O2 Saturation ABG Base Excess FiO2 Sodium Potassium Chloride Carbon Dioxide Anion Gap BUN Creatinine Est GFR ( Amer) Glucose Calcium Phosphorus Magnesium Total Bilirubin AST Alkaline Phosphatase Total Protein Albumin Urine Color Urine Appearance Urine pH Ur Specific [place] Urine Protein Urine Glucose (UA) Urine Ketones Urine Blood Urine Nitrite Ur Leukocyte Esterase Urine WBC (Auto) Urine RBC (Auto) 09/26/20 09/26/20 09/26/20 16:14 16:14 16:14 Creatine Kinase 77 CK-MB (CK-2) 11.10 H Troponin I NT-Pro-B Natriuret Pep [id number] H 09/26/20 09/27/20 09/27/20 16:14 01:42 05:30 Creatine Kinase CK-MB (CK-2) Troponin I 2.620 3.470 3.460 NT-Pro-B Natriuret Pep Impressions: Chest X-Ray 09/26/20 16:00 IMPRESSION: No acute cardiopulmonary disease. Chronic pleural and parenchymal scarring, improved from prior. Hyperinflated lungs which can be seen with obstructive lung disease. Assessment and Plan - Diagnosis (1) Acute on chronic combined systolic (congestive) and diastolic (congestive) heart failure Is this a current diagnosis for this admission?: Yes (2) Acute on chronic respiratory failure with hypoxemia Is this a current diagnosis for this admission?: Yes (3) Acute exacerbation of chronic obstructive pulmonary disease (COPD) Is this a current diagnosis for this admission?: Yes (4) Bilateral lower extremity edema Is this a current diagnosis for this admission?: Yes (5) Stage 3b chronic kidney disease Is this a current diagnosis for this admission?: Yes (6) Coronary artery disease Qualifiers: Coronary Disease-Associated Artery/Lesion type: [place] artery [place] vs. transplanted heart: [place] heart Associated angina: without angina Qualified Code(s): I25.10 - Atherosclerotic heart disease of [place] coronary artery without angina pectoris Is this a current diagnosis for this admission?: Yes (7) Tobacco dependence Is this a current diagnosis for this admission?: Yes - Plan Summary Summary: (1) Acute on chronic combined systolic (congestive) and diastolic (congestive) heart failure Is this a current diagnosis for this admission?: Yes Plan: Previous echo showed EF 20% with advanced systolic and diastolic heart failure as well Repeat echocardiogram to look for worsening valvular insufficiency, may need cardiology consult IV Lasix twice daily Home cardiac medications restarted BiPAP until fluid overload resolved BNP 149,000 EKG no acute changes CK-MB elevated although ED did not draw troponin; troponin pending now (2) Acute exacerbation of chronic obstructive pulmonary disease (COPD) Is this a current diagnosis for this admission?: Yes Plan: Minimal wheezing on exam, likely CHF and COPD set each other off whenever he has respiratory failure 40 mg prednisone daily burst for 5 days Scheduled duo nebs and as needed as well BiPAP as needed Supplemental oxygen to maintain saturation 89 to 92% in the setting of COPD and CO2 retention Patient needs follow-up with pulmonology outpatient (3) Acute on chronic respiratory failure with hypoxemia Is this a current diagnosis for this admission?: Yes Plan: Multifactorial due to COPD and CHF exacerbations Treatment as above (4) Bilateral lower extremity edema Is this a current diagnosis for this admission?: Yes Plan: Both lower extremities with edema however right lower extremity significantly larger than left PVL BLE to rule out DVT (5) Stage 3b chronic kidney disease Is this a current diagnosis for this admission?: Yes Plan: Previous creatinine value typically s range between 1.2 and 1.9; current creatinine 1.6, possible some mild cardiorenal MARTHA but likely at or near his baseline Trend BMP Diuresis (6) Coronary artery disease Qualifiers: Coronary Disease-Associated Artery/Lesion type: [place] artery [place] vs. transplanted heart: [place] heart Associated angina: without angina Qualified Code(s): I25.10 - Atherosclerotic heart disease of [place] coronary artery [facility] angina pectoris Is this a current diagnosis for this admission?: Yes Plan: No chest pain Continue cardiac medications (7) Tobacco dependence Is this a current diagnosis for this admission?: Yes Plan: Counseled on cessation, patient states he stopped smoking when he became extremely ill but otherwise smokes every day 09/27/2020 Heart failure-patient has longstanding history of severe congestive heart failure. His most recent ejection fraction actually showed improvement with an EF up to 40%. He still has grade 2/4 diastolic failure. Continue current medi cation regimen. His academic interventionist will be seeing him later today. Acute exacerbation of COPD-the patient continues to smoke albeit he is making an effort to stop. He does not understand why he has a productive cough every morning. I explained that this is his COPD and it actually takes a long time for this to get better for a longstanding smoker. He does not take an inhaler regularly and I told him that we will initiate that therapy and this will help. Chronic renal insufficiency-continue to monitor renal function as well as intake and output Lower extremity edema-patient reports that it is actually slightly better. He does need to wear compression stockings. We will modify his medications to maximize diuresis Coronary artery disease-continue current regimen. Tobacco dependence-continue to certified credit counselor. Nicotine patch. - Time Time Spent with patient: 15-24 minutes Medications reviewed and adjusted accordingly: Yes Anticipated Discharge Disposition: Home with Home Health Anticipated Discharge Timeframe: 72 to 96 hours
--- NOTE | 2020-09-27 15:55 | RADIOLOGY REPORT (SQ) ---
EXAM DESCRIPTION: VENOUS BILATERAL LOWER IMAGES COMPLETED DATE/TIME: 09/27/2020 3:45 pm REASON FOR STUDY: DVT/PE COMPARISON: None. TECHNIQUE: Dynamic and static lai scale and color images acquired of both lower extremity venous sy stems. Selected spectral images acquired with additional compression and augmentation maneuvers. Imag es stored on PACS. LIMITATIONS: None. FINDINGS: RIGHT LEG COMMON FEMORAL AND FEMORAL: Normal phasicity, compression and augmentation. No visualized echogenic m aterial on lai scale. No defects on color images. POPLITEAL: Normal compression and augmentation. No visualized echogenic material on lai scale. No de fects on color images. CALF VESSELS: Normal compression and augmentation. No visualized echogenic material on lai scale. No defects on color image. GSV AND SSV: Normal compression. No visualized echogenic material on lai scale. No defects on color images. ANY DEEP VENOUS INSUFFICIENCY: Not evaluated. ANY EVIDENCE OF POPLITEAL CYST: No. OTHER: No other significant finding. LEFT LEG COMMON FEMORAL AND FEMORAL: Normal phasicity, compression and augmentation. No visualized echogenic m aterial on lai scale. No defects on color images. POPLITEAL: Normal compression and augmentation. No visualized echogenic material on lai scale. No de fects on color images. CALF VESSELS: Normal compression and augmentation. No visualized echogenic material on lai scale. No defects on color images. GSV AND SSV: Normal compression. No visualized echogenic material on lai scale. No defects on color images. ANY DEEP VENOUS INSUFFICIENCY: Not evaluated. ANY EVIDENCE POPLITEAL CYST: No. OTHER: No other significant finding. IMPRESSION: NO EVIDENCE DVT OR SVT IN EITHER LEG. TECHNICAL DOCUMENTATION: JOB ID: [id number] [employer]- All Rights Reserved Reading location - IP/workstation name: [email or web address]-
--- NOTE | 2020-09-27 19:54 | PDOC CONSULTATION ---
Consultation-Blank Consultation: CARDIOLOGY CONSULTATION BY Dr. Aguilera on 09/27/2020. Patient seen at 12 noon. 60 minutes spent with patient with more than 50 % of the time spent on direct patient care. CONSULT REQUESTING PHYSICIAN: Dr. Finn. [facility] hospitalist physician group. REASON FOR CONSULTATION patient with is congestive heart failure acute on chronic and acute exacerbation of COPD. HISTORY OF PRESENT ILLNESS: Patient is 70-year-old male well-known to us with a history of COPD, nonobstructive coronary artery disease, history of severe aortic regurgitation and history of cardiomyopathy admitted with 2 to 3 days of progressively increasing shortness of breath with wheezing orthopnea PND and leg edema. He denies any chest pain. He also has productive cough which is scanty and at times greenish in color. There is no fever chills or rigors. Of note the patient was seen in February of this year with an EF of 25 to 25% and was in acute respiratory failure due to acute exacerbation of COPD and CHF. He was also at that time found to be severe aortic regurgitation with peripheral signs of AI. The patient subsequently responded to treatment and his recent echo showed LV ejection fraction of 50%. His aortic regurgitation was still severe but the peripheral signs were absent. He also in July of this year had a cardiac catheterization at [facility] where shows nonobstructive coronary artery disease in the form of 50% mid LAD lesion and a 20 to 30% right coronary artery lesion. The patient was to be set up for consultation for possible TAVR TAVR. In the interim the patient admitted with acute on chronic systolic heart failure. He denies any fever chills or rigors. There is no TIA CVA symptoms. The patient's part of his COPD continues to smoke although he is cut down. The patient this admission not only found to be having acute on chronic systolic heart failure which is mild, acute exacerbation COPD with infective bronchitis, and acute on mild chronic kidney disease. He is troponin also is very elevated although the patient has no anginal symptoms. This is secondary to supply demand mismatch type II MD and no evidence of non-ST elevation MD. Past Medical History Cardiac Medical History: Reports: Coronary Artery Disease, Myocardial Infarction - 1979, Hyperlipidema, Hypertension Pulmonary Medical History: Reports: Bronchitis, Chronic Obstructive Pulmonary Disease (COPD), Pneumonia Denies: Asthma Neurological Medical History: Denies: Seizures Malignancy Medical History: Reports: Colorectal Cancer - Status post partial colectomy Musculoskeltal Medical History: Reports: Arthritis Psychiatric Medical History: Reports: Depression Hematology: Denies: Anemia Past Surgical History Past Surgical History: Reports: Other - Partial colectomy 3 years ago for colon cancer Social History Information Source: Patient, Emergency Med Personnel Smoking Status: Current Every Day Smoker Frequency of Alcohol Use: Occasional Hx Recreational Drug Use: No Drugs: None Hx Prescription Drug Abuse: No - Advance Directive Resuscitation Status: Full Code Surrogate healthcare decision maker:: Admitting diagnosis: Acute on chronic systolic and diastolic CHF exacerbation All aspects of code status discussed with patient/POA including cardioversion, chest compressions, and intubation and the patient/POA indicated they wish to be full code MPOA is designated as: Farrah Wong Time spent: Greater than 16 minutes Family History Family History: Reviewed & Not Pertinent, Malignancy Parental Family History Reviewed: Yes Children Family History Reviewed: Yes Sibling(s) Family History Reviewed.: Yes Current Medications Generic Name Dose Route Start Last Admin Trade Name Freq PRN Reason Stop Dose Admin Acetaminophen 650 mg 09/26/20 22:28 Tylenol 325 Mg Tablet PO 10/26/20 22:27 Q4HP PRN Pain or fever Albuterol 2 puff 09/26/20 22:32 Ventolin Hfa 8 Gm Mdi (1 Mdi/Er Disp) IH 10/26/20 22:31 Q4HP PRN Shortness Of Breath/Wheezing Albuterol/Ipratropium 3 ml 09/26/20 22:28 Duoneb 3 Ml Ampul NEB 10/26/20 22:27 RTQ2HP PRN SHORTNESS OF BREATH Albuterol/Ipratropium 3 ml 09/26/20 22:30 09/27/20 19:37 Duoneb 3 Ml Ampul NEB 10/26/20 22:29 3 ml [id number] LARRY Administration Amlodipine Besylate 5 mg 09/27/20 10:00 09/27/20 11:08 Norvasc 5 Mg Tablet PO 10/27/20 09:59 5 mg DAILY LARRY Administration Clopidogrel Bisulfate 75 mg 09/27/20 06:30 09/27/20 07:04 Plavix 75 Mg Tablet PO 10/27/20 06:29 75 mg DAILY LARRY Administration Docusate Sodium 100 mg 09/27/20 10:00 09/27/20 11:09 Colace 100 Mg Capsule PO 10/27/20 09:59 100 mg DAILY LARRY Administration Furosemide 40 mg 09/26/20 22:45 09/27/20 22:35 Lasix Inj/Pf 40 Mg/4 Ml Sdv IV 10/26/20 22:44 40 mg Q12 LARRY Administration Heparin Sodium/Dextrose 25,000 unit in 250 mls @ 0 mls/hr 09/27/20 04:35 09/27/20 05:28 Heparin Rtu 25,000 Unit/250 Ml D5w Premix IV 10/27/20 04:34 7.71 mls/hr CONTINUOUS PRN 7.71 mls/hr THIS MED IS NOT "PRN" Administration Protocol Titrate Lisinopril 40 mg 09/27/20 10:00 09/27/20 11:11 Prinivil 10 Mg Tablet PO 10/27/20 09:59 40 mg DAILY LARRY Administration Metoprolol Succinate 25 mg 09/26/20 22:45 09/27/20 22:35 Toprol Xl 25 Mg Tab.Sr PO 10/26/20 22:44 25 mg Q12 LARRY Administration Multivitamins 1 tab 09/27/20 10:00 09/27/20 11:09 Tab-A-Rosendo (Multiple Vitamin) Tablet PO 10/27/20 09:59 1 tab DAILY LARRY Administration Ondansetron HCl 4 mg 09/26/20 22:28 Zofran Odt 4 Mg Tablet PO 10/26/20 22:27 Q4HP PRN FOR NAUSEA/VOMITING Ondansetron HCl 4 mg 09/26/20 22:28 Zofran Inj/Pf 4 Mg/2 Ml Sdv IV 10/26/20 22:27 Q4HP PRN FOR NAUSEA/VOMITING Prednisone 40 mg 09/26/20 22:45 09/27/20 11:10 Deltasone 20 Mg Tablet PO 10/26/20 22:44 40 mg DAILY LARRY Administration Discontinued Medications Generic Name Dose Route Start Last Admin Trade Name Freq PRN Reason Stop Dose Admin Clopidogrel Bisulfate 75 mg 09/27/20 10:00 Plavix 75 Mg Tablet PO 10/27/20 09:59 DAILY LARRY Furosemide 40 mg 09/26/20 20:40 09/26/20 20:53 Lasix Inj/Pf 40 Mg/4 Ml Sdv IV 09/26/20 20:41 40 mg NOW ONE Administration Heparin Sodium (Porcine) 5,000 unit 09/27/20 06:00 Heparin Inj 5,000 Units/Ml 1 Ml Vial SUBCUT 10/27/20 05:59 Q8 LARRY Heparin Sodium (Porcine) 4,000 unit 09/27/20 04:35 09/27/20 05:27 Heparin Inj 1,000 Unit/Ml 10 Ml Vial IV 09/27/20 04:36 4,000 units NOW ONE Administration Nitroglycerin 0.5 gm 09/26/20 20:41 09/26/20 20:52 Nitrol 2% Ointment 1gm Packet TP 09/26/20 20:42 0.5 gm NOW ONE Administration RESUSCITATION STATUS: The patient is a full code. His is a surrogate healthcare decision maker. Medication/Allergy Home Medications: Clopidogrel Bisulfate [Plavix 75 mg Tablet] 75 mg PO DAILY #30 tablet 03/17/20 Furosemide [Lasix 40 mg Tablet] 40 mg PO BID #60 tablet 03/17/20 Albuterol Sulfate [Ventolin Hfa 8 gm Mdi (1 Mdi/ER Disp)] 2 puff IH Q4HP PRN 08/06/20 Amlodipine Besylate [Norvasc 5 mg Tablet] 5 mg PO DAILY 08/06/20 Lisinopril 40 mg PO DAILY 08/06/20 Multivitamin [Multivitamins] 1 cap PO DAILY 08/06/20 Metoprolol Succinate [Toprol Xl 25 mg Tab.sr] 25 mg PO Q12 08/13/20 Allergies/Adverse Reactions: aspirin Adverse Reaction (Severe, Verified 09/26/20 19:19) BLEEDING REVIEW OF SYSTEMS: Constitutional: No history of fever chills or rigors. Consult complains of generalized fatigue and weakness. HEAD: No severe aches or head injury. EARS: History of mild hearing loss. No history of tinnitus. EYES: No history of amblyopia diplopia. No history of amaurosis fugax. NOSE: No history of hayfever. No history of nosebleeds. Notes of nasal polyps. MOUTH: No history of altered taste sensation. No history of ulcers in the mouth. THROAT: No history of odynophagia or dysphagia. No recurrent sore throats. SKIN: No history of pruritus. No history of yellowish discoloration of the skin. No history of petechia or ecchymosis. NECK: No history of swelling in the neck no neck stiffness. No goiter. LUNGS: History of COPD continues to smoke has symptoms of acute exacerbation of COPD with cough wheezing and shortness of breath and also has scanty sputum which is productive of occasionally greenish colored sputum suggestive of infective bronchitis. CARDIAC: History of severe aortic regurgitation no history of syncope. History of nonobstructive coronary artery disease. Symptoms of acute on chronic systolic heart failure. No history of syncope. No anginal symptoms. RENAL: History of mild chronic kidney disease which is progressed to stage III at present. No history of hematuria pyuria or dysuria. ENDOCRINE: No history of diabetes mellitus. No history of polydipsia polyuria. No history of heat or cold intolerance. Musculoskeletal. No history of arthritis. No history of collagen vascular disease. HEMATOLOGIC: No history of bleeding diathesis. No history of clotting disorders. OVEREDGER: No history of TIA CVA. No history of headaches migraines or seizures. PSYCHIATRIC: No history of anxiety or depression. No suicidal ideation. No homicidal ideation. GI: No history of GI bleed. No history of fatty food intolerance. No history of altered bowel movements. No history of cirrhosis. No history of peptic ulcer disease. PHYSICAL EXAMINATION: The patient appears to be chronically ill in no acute distress. Selected Entries 09/27/20 12:04 Temperature 97.4 F Temperature Oral Source Pulse Rate 94 Respiratory 16 Rate Blood Pressure 133/63 H Blood Pressure 86 Mean BP Location Right Arm BP Position Supine O2 Sat by Pulse 97 Oximetry Oxygen Flow 3.00 Rate Oxygen Delivery Nasal Cannula Method HEAD: Is atraumatic normocephalic. EYES: Pupils are equal round regular reactive light accommodation. Extraocular movements are normal. There is no conjunctival pallor. There is no scleral icterus. EARS: Tympanic membranes are intact. External auditory canals are clear. NOSE: There is no deviated nasal septum. There is no inflammation of the nasal mucous membrane. MOUTH: Dukas membranes of mouth are moist. Tongue is moist. There is no ulcers. THROAT: There is no redness of the oropharynx. There is no exudates. SKIN: There is no petechia or ecchymosis. There is no skin lesions there is no skin rashes. NECK: Supple. There is mild JVD present. Carotids are equal there is no bruit. There is no lymphadenopathy. There is no goiter. TRACHEA is central. There is no accessory muscles of respiration use. LUNGS: There is diminished air entry prolonged expiration with scattered rhonchi and wheezing. There is a few bibasilar rales of CHF. HEART: S1-S2 is heard. There is no S3 gallop. There is no S4 gallop. There is murmur of aortic regurgitation present. There is mild mitral regurgitation murmur present. There is no rub. There is no p eripheral signs of aortic regurgitation. ABDOMEN: Soft. Nontender. There is no hepatosplenomegaly. Bowel sounds are well heard. EXTREMITIES: Femorals are diminished there is bilateral femoral bruits leg pulses are diminished. There is no peripheral signs of aortic regurgitation over the femoral arteries. There is mild pedal edema right lower extremity greater than left. There is no DVT or cellulitis. There is no cyanosis or clubbing. OVEREDGER: The patient is conscious awake alert oriented x3 with no focal deficits. PSYCHIATRIC: Patient judgment insight are intact his affect is normal. Labs- Entire Visit 09/26/20 09/26/20 09/26/20 16:14 16:14 16:14 WBC 9.5 RBC 3.66 L Hgb 12.4 L Hct 37.2 L MCV 102 H MCH 33.9 H MCHC 33.3 RDW 13.1 Plt Count 128 L Lymph % (Auto) 19.8 [place] % (Auto) 8.7 Eos % (Auto) 0.3 Baso % (Auto) 0.7 Absolute Neuts (auto) 6.7 Absolute Lymphs (auto) 1.9 Absolute Monos (auto) 0.8 Absolute Eos (auto) 0.0 Absolute Basos (auto) 0.1 Seg Neutrophils % 70.5 PT INR APTT Carbonic Acid HCO3/H2CO3 Ratio ABG pH ABG pCO2 ABG pO2 ABG HCO3 ABG Total CO2 ABG O2 Saturation ABG Base Excess FiO2 Sodium 135.0 L Potassium 4.2 Chloride 103 Carbon Dioxide 19 L Anion Gap 13 BUN 29 H Creatinine 1.60 H Est GFR ( Amer) 52 L Est GFR (MDRD) Non-Af 43 L Glucose 236 H Calcium 9.9 Phosphorus Magnesium Total Bilirubin 1.3 Direct Bilirubin 0.2 Neonat Total Bilirubin Not Reportable Neonat Direct Bilirubin Not Reportable Neonat Indirect Bili Not Reportable AST 45 ALT 20 Alkaline Phosphatase 91 Creatine Kinase 77 CK-MB (CK-2) 11.10 H Troponin I NT-Pro-B Natriuret Pep Total Protein 7.1 Albumin 4.0 Urine Color Urine Appearance Urine pH Ur Specific [place] Urine Protein Urine Glucose (UA) Urine Ketones Urine Blood Urine Nitrite Urine Bilirubin Urine Urobilinogen Ur Leukocyte Esterase Urine WBC (Auto) Urine RBC (Auto) U Hyaline Cast (Auto) Squamous Epi Cells Auto Urine Mucus (Auto) Urine Ascorbic Acid 09/26/20 09/26/20 09/26/20 16:14 16:14 16:14 WBC RBC Hgb Hct MCV MCH MCHC RDW Plt Count Lymph % (Auto) [place] % (Auto) Eos % (Auto) Baso % (Auto) Absolute Neuts (auto) Absolute Lymphs (auto) Absolute Monos (auto) Absolute Eos (auto) Absolute Basos (auto) Seg Neutrophils % PT INR APTT Carbonic Acid HCO3/H2CO3 Ratio ABG pH ABG pCO2 ABG pO2 ABG HCO3 ABG Total CO2 ABG O2 Saturation ABG Base Excess FiO2 Sodium Potassium Chloride Carbon Dioxide Anion Gap BUN Creatinine Est GFR ( Amer) Est GFR (MDRD) Non-Af Glucose Calcium Phosphorus Magnesium 3.4 H Total Bilirubin Direct Bilirubin Neonat Total Bilirubin Neonat Direct Bilirubin Neonat Indirect Bili AST ALT Alkaline Phosphatase Creatine Kinase CK-MB (CK-2) Troponin I 2.620 NT-Pro-B Natriuret Pep [id number] H Total Protein Albumin Urine Color Urine Appearance Urine pH Ur Specific [place] Urine Protein Urine Glucose (UA) Urine Ketones Urine Blood Urine Nitrite Urine Bilirubin Urine Urobilinogen Ur Leukocyte Esterase Urine WBC (Auto) Urine RBC (Auto) U Hyaline Cast (Auto) Squamous Epi Cells Auto Urine Mucus (Auto) Urine Ascorbic Acid 09/26/20 09/27/20 09/27/20 19:00 01:00 01:42 WBC RBC Hgb Hct MCV MCH MCHC RDW Plt Count Lymph % (Auto) [place] % (Auto) Eos % (Auto) Baso % (Auto) Absolute Neuts (auto) Absolute Lymphs (auto) Absolute Monos (auto) Absolute Eos (auto) Absolute Basos (auto) Seg Neutrophils % PT INR APTT Carbonic Acid 0.85 L HCO3/H2CO3 Ratio 19:1 ABG pH 7.39 ABG pCO2 28.1 L ABG pO2 112.4 H ABG HCO3 16.6 L ABG Total CO2 17.5 L ABG O2 Saturation 98.1 H ABG Base Excess -7.0 FiO2 30% Sodium Potassium Chloride Carbon Dioxide Anion Gap BUN Creatinine Est GFR ( Amer) Est GFR (MDRD) Non-Af Glucose Calcium Phosphorus Magnesium Total Bilirubin Direct Bilirubin Neonat Total Bilirubin Neonat Direct Bilirubin Neonat Indirect Bili AST ALT Alkaline Phosphatase Creatine Kinase CK-MB (CK-2) Troponin I 3.470 NT-Pro-B Natriuret Pep Total Protein Albumin Urine Color YELLOW Urine Appearance CLEAR Urine pH 5.0 Ur Specific [place] 1.011 Urine Protein >=500 H Urine Glucose (UA) NEGATIVE Urine Ketones NEGATIVE Urine Blood SMALL H Urine Nitrite NEGATIVE Urine Bilirubin NEGATIVE Urine Urobilinogen NEGATIVE Ur Leukocyte Esterase NEGATIVE Urine WBC (Auto) 0 Urine RBC (Auto) 0 U Hyaline Cast (Auto) 2 Squamous Epi Cells Auto Urine Mucus (Auto) RARE Urine Ascorbic Acid NEGATIVE 09/27/20 09/27/20 09/27/20 05:30 05:30 05:30 WBC 5.9 RBC 3.06 L Hgb 10.6 L Hct 30.6 L MCV 100 H MCH 34.6 H MCHC 34.6 RDW 13.2 Plt Count 100 L Lymph % (Auto) 6.4 L [place] % (Auto) 4.7 Eos % (Auto) 0.0 Baso % (Auto) 0.3 Absolute Neuts (auto) 5.2 Absolute Lymphs (auto) 0.4 L Absolute Monos (auto) 0.3 Absolute Eos (auto) 0.0 Absolute Basos (auto) 0.0 Seg Neutrophils % 88.6 H PT 13.1 INR 0.97 APTT 29.0 Carbonic Acid HCO3/H2CO3 Ratio ABG pH ABG pCO2 ABG pO2 ABG HCO3 ABG Total CO2 ABG O2 Saturation ABG Base Excess FiO2 Sodium 135.0 L Potassium 4.3 Chloride 105 Carbon Dioxide 21 L Anion Gap 9 BUN 40 H Creatinine 1.71 H Est GFR ( Amer) 48 L Est GFR (MDRD) Non-Af 40 L Glucose 156 H Calcium 9.1 Phosphorus 4.7 H Magnesium 2.7 H Total Bilirubin Direct Bilirubin Neonat Total Bilirubin Neonat Direct Bilirubin Neonat Indirect Bili AST ALT Alkaline Phosphatase Creatine Kinase CK-MB (CK-2) Troponin I NT-Pro-B Natriuret Pep Total Protein Albumin Urine Color Urine Appearance Urine pH Ur Specific [place] Urine Protein Urine Glucose (UA) Urine Ketones Urine Blood Urine Nitrite Urine Bilirubin Urine Urobilinogen Ur Leukocyte Esterase Urine WBC (Auto) Urine RBC (Auto) U Hyaline Cast (Auto) Squamous Epi Cells Auto Urine Mucus (Auto) Urine Ascorbic Acid 09/27/20 09/27/20 09/27/20 05:30 10:16 19:55 WBC RBC Hgb Hct MCV MCH MCHC RDW Plt Count Lymph % (Auto) [place] % (Auto) Eos % (Auto) Baso % (Auto) Absolute Neuts (auto) Absolute Lymphs (auto) Absolute Monos (auto) Absolute Eos (auto) Absolute Basos (auto) Seg Neutrophils % PT INR APTT 63.9 H D Carbonic Acid HCO3/H2CO3 Ratio ABG pH ABG pCO2 ABG pO2 ABG HCO3 ABG Total CO2 ABG O2 Saturation ABG Base Excess FiO2 Sodium Potassium Chloride Carbon Dioxide Anion Gap BUN Creatinine Est GFR ( Amer) Est GFR (MDRD) Non-Af Glucose Calcium Phosphorus Magnesium Total Bilirubin Direct Bilirubin Neonat Total Bilirubin Neonat Direct Bilirubin Neonat Indirect Bili AST ALT Alkaline Phosphatase Creatine Kinase CK-MB (CK-2) Troponin I 3.460 NT-Pro-B Natriuret Pep Total Protein Albumin Urine Color YELLOW Urine Appearance CLEAR Urine pH 5.0 Ur Specific [place] 1.011 Urine Protein 100 H Urine Glucose (UA) NEGATIVE Urine Ketones NEGATIVE Urine Blood NEGATIVE Urine Nitrite NEGATIVE Urine Bilirubin NEGATIVE Urine Urobilinogen NEGATIVE Ur Leukocyte Esterase NEGATIVE Urine WBC (Auto) 0 Urine RBC (Auto) 0 U Hyaline Cast (Auto) 8 Squamous Epi Cells Auto <1 Urine Mucus (Auto) RARE Urine Ascorbic Acid NEGATIVE Chest X-Ray 09/26/20 16:00 IMPRESSION: No acute cardiopulmonary disease. Chronic pleural and parenchymal scarring, improved from prior. Hyperinflated lungs which can be seen with obstructive lung disease. Venous Doppler Study 09/27/20 00:00 IMPRESSION: NO EVIDENCE DVT OR SVT IN EITHER LEG. The patient's initial EKG shows sinus rhythm LVH with strain pattern and nonspecific IVCD. The patient second EKG shows sinus rhythm with left bundle branch block pattern. IMPRESSION/RECOMMENDATION: 1. Elevated troponin I this is secondary to supply demand mismatch due to the patient's acute exacerbation of COPD, acute on chronic systolic heart failure acute on chronic renal failure. No evidence of non-ST elevation MD. Note that the patient has nonobstructive coronary artery disease. 2. 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 Continue beta-janet and BYRON inhibitor. Agree with diuretics for present. 3. Acute exacerbation of COPD: Continue steroids and anti-COPD treatment. 4. 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 5. Acute infective bronchitis: Consider antibiotics 6. Severe aortic regurgitation. Once stabilized patient will be referred for TAVR. 7. Nonobstructive coronary artery disease 8. Acute on chronic kidney disease: Expect this to improve with the treatment of the patient's heart failure. Avoid nephrotoxic drugs Plan. Ongoing tobacco abuse: Tobacco cessation counseling given. Medication reviewed. Medication adjusted. Medical regimen management plan discussed with attending provider on the case. Medical decision making is of high complexity. 60 minutes spent as patient more than 50% time spent in direct patient care. Will follow.
[2020-09-27 20:53] LABS: APPEARANCE,URINE CLEAR; BILIRUBIN,URINE NEGATIVE (NEGATIVE); COLOR,URINE YELLOW; GLUCOSE, URINE NEGATIVE (NEGATIVE); KETONES,URINE NEGATIVE (NEGATIVE); LEUKOCYTE ESTERASE,URINE NEGATIVE (NEGATIVE); NITRITE,URINE NEGATIVE (NEGATIVE); PROTEIN,URINE 100 mg/dL (NEGATIVE); URINE SPECIFIC GRAVITY 1.011; UROBILINOGEN,URINE NEGATIVE mg/dL (<2.0)
[2020-09-28] MEDS ORDERED: LEVOFLOXACIN 500 MG TABLET PO ONE ×2 (02:00→02:15)
[2020-09-28 05:46] LABS: ABSOLUTE LYMPHOCYTES (AUTO) 0.9 10^3/uL (0.5-4.7); ABSOLUTE MONOCYTES (AUTO) 0.5 10^3/uL (0.1-1.4); ABSOLUTE NEUT (AUTO) 4.7 10^3/uL (1.7-8.2); BASOPHILS % (AUTO) 0.4 % (0-2); EOSINOPHILS % (AUTO) 0.5 % (0-6); HEMATOCRIT 29.1 % (37.9-51.0); HEMOGLOBIN 10.1 g/dL (13.5-17.0); LYMPHOCYTES % (AUTO) 14.7 % (13-45); MEAN CORPUSCULAR HEMOGLOBIN 34.7 pg (27.0-33.4); MEAN CORPUSCULAR HGB CONC 34.8 g/dL (32.0-36.0); MEAN CORPUSCULAR VOLUME 100 fl (80-97); MONOCYTES % (AUTO) 7.5 % (3-13); PLATELET COUNT 104 10^3/uL (150-450); RED BLOOD COUNT 2.92 10^6/uL (4.35-5.55); RED CELL DISTRIBUTION WIDTH 13.1 % (11.5-14.0); SEGMENTED NEUTROPHILS % (AUTO) 76.9 % (42-78); TOTAL CELLS COUNTED % (AUTO) 100 %; WHITE BLOOD COUNT 6.1 10^3/uL (4.0-10.5)
[2020-09-28 06:13] LABS: ANION GAP 9 (5-19); BLOOD UREA NITROGEN 53 mg/dL (7-20); CALCIUM 8.6 mg/dL (8.4-10.2); CARBON DIOXIDE 23 mmol/L (22-30); CHLORIDE 103 mmol/L (98-107); GLUCOSE 85 mg/dL (75-110); POTASSIUM 3.5 mmol/L (3.6-5.0)
[2020-09-28] MEDS: IPRATROPIUM/ALBUTEROL 0.5-2.5 MG/3 ML AMPUL NEB SCH ×4 (08:06→20:09)
[2020-09-28] MEDS ORDERED: HEPARIN SODIUM,PORCINE/D5W 25,000 UNIT/250 ML RTUINJ IV PRN (09:00)
[2020-09-28] MEDS ORDERED: HEPARIN SOD (PORCINE) 1,000 UNIT/ML 10 ML VIAL IV PRN (09:00)
[2020-09-28] MEDS: AMLODIPINE BESYLATE 5 MG TABLET PO SCH (09:08)
[2020-09-28] MEDS: PREDNISONE 20 MG TABLET PO SCH (09:08)
[2020-09-28] MEDS: LISINOPRIL 10 MG TABLET PO SCH ×2 (09:08→23:23)
[2020-09-28] MEDS: METOPROLOL SUCCINATE 25 MG TAB.SR.24H PO SCH ×2 (09:08→23:24)
[2020-09-28] MEDS: MULTIVITAMIN TABLET PO SCH (09:08)
[2020-09-28] MEDS: CLOPIDOGREL BISULFATE 75 MG TABLET PO SCH (09:08)
[2020-09-28] MEDS: DOCUSATE SODIUM 100 MG CAPSULE PO SCH (09:08)
--- NOTE | 2020-09-28 09:48 | EKG REPORT ---
SEVERITY:- ABNORMAL ECG - SINUS RHYTHM LBBB PROBABLE LVH WITH SECONDARY REPOL ABNRM ST DEPRESSION, CONSIDER ISCHEMIA, INF LEADS : Confirmed by: Lainey Field 28-Sep-2020 09:47:51
[2020-09-28] MEDS ORDERED: FUROSEMIDE INJ/PF 40 MG/4 ML SDV IV SCH (10:00)
--- NOTE | 2020-09-28 11:43 | PDOC PROGRESS REPORT ---
Subjective Date:: 09/28/20 Subjective:: Patient is resting in bed. Breathing is comfortable. He reports that he has de creased productive cough this morning. Reason For Visit: ACUTE ON CHRONIC COMBINED SYSTOLIC AND DIASTOLIC Physical Exam Vital Signs: Temp Pulse Resp BP Pulse Ox 98.3 F 73 16 133/50 H 97 09/28/20 08:10 09/28/20 08:05 09/28/20 08:05 09/28/20 01:03 09/28/20 08:05 Intake & Output 09/27/20 09/28/20 09/29/20 06:59 06:59 06:59 Intake Total 260 860 Output Total 1650 Balance 260 -790 Weight 80.4 kg 80 kg General appearance: PRESENT: no acute distress Head exam: PRESENT: atraumatic, normocephalic Mouth exam: PRESENT: moist, tongue midline Respiratory exam: PRESENT: rales - Faint rales at bases, symmetrical, unlabored. ABSENT: rhonchi, tachypnea, wheezes Cardiovascular exam: PRESENT: diastolic murmur, RRR, +S1, +S2 GI/Abdominal exam: PRESENT: normal bowel sounds, soft. ABSENT: tenderness Rectal exam: PRESENT: deferred Extremities exam: ABSENT: pedal edema Neurological exam: PRESENT: alert, awake, oriented to person, oriented to place, oriented to time, oriented to situation, CN II-XII grossly intact. ABSENT: altered Results Laboratory Results: 09/28/20 05:28 09/28/20 05:28 09/27/20 09/28/20 09/28/20 19:55 05:28 05:28 WBC 6.1 RBC 2.92 L Hgb 10.1 L Hct 29.1 L MCV 100 H MCH 34.7 H MCHC 34.8 RDW 13.1 Plt Count 104 L Seg Neutrophils % 76.9 Sodium 134.6 L Potassium 3.5 L Chloride 103 Carbon Dioxide 23 Anion Gap 9 BUN 53 H Creatinine 1.66 H Est GFR ( Amer) 50 L Glucose 85 Calcium 8.6 Urine Color YELLOW Urine Appearance CLEAR Urine pH 5.0 Ur Specific [place] 1.011 Urine Protein 100 H Urine Glucose (UA) NEGATIVE Urine Ketones NEGATIVE Urine Blood NEGATIVE Urine Nitrite NEGATIVE Ur Leukocyte Esterase NEGATIVE Urine WBC (Auto) 0 Urine RBC (Auto) 0 09/26/20 09/26/20 09/26/20 16:14 16:14 16:14 Creatine Kinase 77 CK-MB (CK-2) 11.10 H Troponin I NT-Pro-B Natriuret Pep 322375 H 09/26/20 09/27/20 09/27/20 16:14 01:42 05:30 Creatine Kinase CK-MB (CK-2) Troponin I 2.620 3.470 3.460 NT-Pro-B Natriuret Pep Impressions: Chest X-Ray 09/26/20 16:00 IMPRESSION: No acute cardiopulmonary disease. Chronic pleural and parenchymal scarring, improved from prior. Hyperinflated lungs which can be seen with o bstructive lung disease. Venous Doppler Study 09/27/20 00:00 IMPRESSION: NO EVIDENCE DVT OR SVT IN EITHER LEG. Assessment and Plan - Diagnosis (1) Acute on chronic combined systolic (congestive) and diastolic (congestive) heart failure Is this a current diagnosis for this admission?: Yes (2) Acute on chronic respiratory failure with hypoxemia Is this a current diagnosis for this admission?: Yes (3) Acute exacerbation of chronic obstructive pulmonary disease (COPD) Is this a current diagnosis for this admission?: Yes (4) Bilateral lower extremity edema Is this a current diagnosis for this admission?: Yes (5) Stage 3b chronic kidney disease Is this a current diagnosis for this admission?: Yes (6) Coronary artery disease Qualifiers: Coronary Disease-Associated Artery/Lesion type: [place] artery [place] vs. transplanted heart: [place] heart Associated angina: without angina Qualified Code(s): I25.10 - Atherosclerotic heart disease of [place] coronary artery without angina pectoris Is this a current diagnosis for this admission?: Yes (7) Tobacco dependence Is this a current diagnosis for this admission?: Yes - Plan Summary Summary: (1) Acute on chronic combined systolic (congestive) and diastolic (congestive) heart failure Is this a current diagnosis for this admission?: Yes Plan: Previous echo showed EF 20% with advanced systolic and diastolic heart failure as well Repeat echocardiogram to look for worsening valvular insufficiency, may need cardiology consult IV Lasix twice daily Home cardiac medications restarted BiPAP until fluid overload resolved BNP 149,000 EKG no acute changes CK-MB elevated although ED did not draw troponin; troponin pending now (2) Acute exacerbation of chronic obstructive pulmonary disease (COPD) Is this a current diagnosis for this admission?: Yes Plan: Minimal wheezing on exam, likely CHF and COPD set each other off whenever he has respiratory failure 40 mg prednisone daily burst for 5 days Scheduled duo nebs and as needed as well BiPAP as needed Supplemental oxygen to maintain saturation 89 to 92% in the setting of COPD and CO2 retention Patient needs follow-up with pulmonology outpatient (3) Acute on chronic respiratory failure with hypoxemia Is this a current diagnosis for this admission?: Yes Plan: Multifactorial due to COPD and CHF exacerbations Treatment as above (4) Bilateral lower extremity edema Is this a current diagnosis for this admission?: Yes Plan: Both lower extremities with edema however right lower extremity significantly larger than left PVL BLE to rule out DVT (5) Stage 3b chronic kidney disease Is this a current diagnosis for this admission?: Yes Plan: Previous creatinine value typically s range between 1.2 and 1.9; current creatinine 1.6, possible some mild cardiorenal MARTHA but likely at or near his baseline Trend BMP Diuresis (6) Coronary artery disease Qualifiers: Coronary Disease-Associated Artery/Lesion type: [place] artery [place] vs. transplanted heart: [place] heart Associated angina: without angina Qualified Code(s): I25.10 - Atherosclerotic heart disease of [place] coronary artery without angina pectoris Is this a current diagnosis for this admission?: Yes Plan: No chest pain Continue cardiac medications (7) Tobacco dependence Is this a current diagnosis for this admission?: Yes Plan: Counseled on cessation, patient states he stopped smoking when he became ext remely ill but otherwise smokes every day 09/27/2020 Heart failure-patient has longstanding history of severe congestive heart failure. His most recent ejection fraction actually showed improvement with an EF up to 40%. He still has grade 2/4 diastolic failure. Continue current medication regimen. His catering associate will be seeing him later today. Acute exacerbation of COPD-the patient continues to smoke albeit he is making an effort to stop. He does not understand why he has a productive cough every morning. I explained that this is his COPD and it actually takes a long time for this to get better for a longstanding smoker. He does not take an inhaler regularly and I told him that we will initiate that therapy and this will help. Chronic renal insufficiency-continue to monitor renal function as well as intake and output Lower extremity edema-patient reports that it is actually slightly better. He does need to wear compression stockings. We will modify his medications to maximize diuresis Coronary artery disease-continue current regimen. Tobacco dependence-continue to evp general counsel. Nicotine patch. 09/28/2020 Discontinue heparin Heart failure improved Notice improvement in his COPD. Morning cough is not as productive. Breathing feels more comfortable Continue antibiotics for probable bronchitis - Time Time Spent with patient: Less than 15 minutes Medications reviewed and adjusted accordingly: Yes Anticipated Discharge Disposition: Home, Self Care Anticipated Discharge Timeframe: within 72 hours
[2020-09-28 14:46] LABS: INTERNATIONAL RATION (INR) 0.96
[2020-09-28 14:47] LABS: PARTIAL THROMBOPLASTIN TIME 44.2 SEC (23.5-35.8)
--- NOTE | 2020-09-28 19:45 | Progress Note ---
Provider Note Provider Note: CARDIOLOGY PROGRESS NOTE by Dr. Fidelina Roass on 09/28/2020. SUBJECTIVE: The patient states his breathing is better he still has cough but less much less. He still producing some yellowish-greenish sputum. There is no chest pain or discomfort. There is no arrhythmias seen on the monitor. His leg edema is also improved and there is only trace to mild pedal edema bilaterally with the right lower extremity being more than the left. There is no PND. He still has orthopnea. There is no anginal symptoms. There is no TIA CVA symptoms. There is no arrhythmias seen on the monitor. PHYSICAL EXAMINATION: The patient is chronically ill. At present in no acute distress. Selected Entries 09/28/20 16:19 Temperature 97.5 F Temperature Oral Source Pulse Rate 84 Respiratory 20 Rate Blood Pressure 121/38 L Blood Pressure 65 Mean BP Location Right Arm BP Position Sitting O2 Sat by Pulse 93 Oximetry Oxygen Delivery Room Air Method HEAD: Is atraumatic normocephalic. EYES: Pupils are equal round regular reactive light accommodation. Extraocular movements are normal. There is no conjunctival pallor. There is no scleral icterus. EARS: Tympanic membranes are intact. External auditory canals are clear. NOSE: There is no deviated nasal septum. There is no inflammation of the nasal mucous membrane. MOUTH: Dukas membranes of mouth are moist. Tongue is moist. There is no ulcers. THROAT: There is no redness of the oropharynx. There is no exudates. SKIN: There is no petechia or ecchymosis. There is no skin lesions there is no skin rashes. NECK: Supple. There is mild JVD present. Carotids are equal there is no bruit. There is no lymphadenopathy. There is no goiter. TRACHEA is central. There is no accessory muscles of respiration use. LUNGS: There is diminished air entry prolonged expiration with scattered rhonchi and wheezing. There are no rales of CHF. HEART: S1-S2 is heard. There is no S3 gallop. There is no S4 gallop. There is murmur of aortic regurgitation present. There is mild mitral regurgitation murmur present. There is no rub. There is no peripheral signs of aortic regurgitation. ABDOMEN: Soft. Nontender. There is no hepatosplenomegaly. Bowel sounds are well heard. EXTREMITIES: Femorals are diminished there is bilateral femoral bruits leg pulses are diminished. There is no peripheral signs of aortic regurgitation over the femoral arteries. There is trace to mild pedal edema right lower extremity greater than left. There is no DVT or cellulitis. There is no cyanosis or clubbing. 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 PSYCHIATRIC: Patient judgment insight are intact his affect is normal. 24-hour intake is 860 mL, and 24-hour output is 1650 mL. Labs- All tests 24 hr 09/27/20 09/28/20 09/28/20 19:55 05:28 05:28 WBC 6.1 RBC 2.92 L Hgb 10.1 L Hct 29.1 L MCV 100 H MCH 34.7 H MCHC 34.8 RDW 13.1 Plt Count 104 L Lymph % (Auto) 14.7 [place] % (Auto) 7.5 Eos % (Auto) 0.5 Baso % (Auto) 0.4 Absolute Neuts (auto) 4.7 Absolute Lymphs (auto) 0.9 Absolute Monos (auto) 0.5 Absolute Eos (auto) 0.0 Absolute Basos (auto) 0.0 Seg Neutrophils % 76.9 PT INR APTT Sodium 134.6 L Potassium 3.5 L Chloride 103 Carbon Dioxide 23 Anion Gap 9 BUN 53 H Creatinine 1.66 H Est GFR ( Amer) 50 L Est GFR (MDRD) Non-Af 41 L Glucose 85 Calcium 8.6 Urine Color YELLOW Urine Appearance CLEAR Urine pH 5.0 Ur Specific [place] 1.011 Urine Protein 100 H Urine Glucose (UA) NEGATIVE Urine Ketones NEGATIVE Urine Blood NEGATIVE Urine Nitrite NEGATIVE Urine Bilirubin NEGATIVE Urine Urobilinogen NEGATIVE Ur Leukocyte Esterase NEGATIVE Urine WBC (Auto) 0 Urine RBC (Auto) 0 U Hyaline Cast (Auto) 8 Squamous Epi Cells Auto <1 Urine Mucus (Auto) RARE Urine Ascorbic Acid NEGATIVE 09/28/20 09/28/20 05:28 14:30 WBC RBC Hgb Hct MCV MCH MCHC RDW Plt Count Lymph % (Auto) [place] % (Auto) Eos % (Auto) Baso % (Auto) Absolute Neuts (auto) Absolute Lymphs (auto) Absolute Monos (auto) Absolute Eos (auto) Absolute Basos (auto) Seg Neutrophils % PT 13.0 INR 0.96 APTT 38.8 H 44.2 H Sodium Potassium Chloride Carbon Dioxide Anion Gap BUN Creatinine Est GFR ( Amer) Est GFR (MDRD) Non-Af Glucose Calcium Urine Color Urine Appearance Urine pH Ur Specific [place] Urine Protein Urine Glucose (UA) Urine Ketones Urine Blood Urine Nitrite Urine Bilirubin Urine Urobilinogen Ur Leukocyte Esterase Urine WBC (Auto) Urine RBC (Auto) U Hyaline Cast (Auto) Squamous Epi Cells Auto Urine Mucus (Auto) Urine Ascorbic Acid Chest X-Ray 09/26/20 16:00 IMPRESSION: No acute cardiopulmonary disease. Chronic pleural and parenchymal scarring, improved from prior. Hyperinflated lungs which can be seen with obstructive lung disease. Venous Doppler Study 09/27/20 00:00 IMPRESSION: NO EVIDENCE DVT OR SVT IN EITHER LEG. IMPRESSION/RECOMMENDATION: 1. Elevated troponin I this is secondary to supply demand mismatch due to the patient's acute exacerbation of COPD, acute on chronic systolic heart failure acute on chronic renal failure. No evidence of non-ST elevation [place]. Note that the patient has nonobstructive coronary artery disease. 2. 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 Continue beta-janet and BYRON inhibitor. Agree with diuretics for present. This at present seems to be compensated. 3. Acute exacerbation of COPD: Continue steroids and anti-COPD treatment. This is improving 4. 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 5. Acute infective bronchitis: Continue antibiotics 6. Severe aortic regurgitation. Once stabilized patient will be referred for TAVR. 7. Nonobstructive coronary artery disease 8. Acute on chronic kidney disease: Expect this to improve with the treatment of the patient's heart failure. Avoid nephrotoxic drugs. There might be an element of overdiuresis. Will change to p.o. Lasix. We will increase the patient's BYRON inhibitor. Plan. Ongoing tobacco abuse: Tobacco cessation counseling given. Medication reviewed. Medication adjusted. Medical regimen management plan discussed with attending provider on the case. Medical decision making is of high complexity. 60 minutes spent as patient more than 50% time spent in direct patient care. Will follow.
[2020-09-28] MEDS: LEVOFLOXACIN 500 MG TABLET PO SCH (23:23)
[2020-09-29] MEDS: IPRATROPIUM/ALBUTEROL 0.5-2.5 MG/3 ML AMPUL NEB SCH ×4 (02:35→19:36)
[2020-09-29 06:59] LABS: ABSOLUTE MONOCYTES (AUTO) 0.4 10^3/uL (0.1-1.4); ABSOLUTE NEUT (AUTO) 2.9 10^3/uL (1.7-8.2); BASOPHILS % (AUTO) 0.3 % (0-2); HEMATOCRIT 30.8 % (37.9-51.0); HEMOGLOBIN 10.7 g/dL (13.5-17.0); LYMPHOCYTES % (AUTO) 22.9 % (13-45); MEAN CORPUSCULAR HEMOGLOBIN 34.9 pg (27.0-33.4); MEAN CORPUSCULAR HGB CONC 34.9 g/dL (32.0-36.0); MEAN CORPUSCULAR VOLUME 100 fl (80-97); MONOCYTES % (AUTO) 9.3 % (3-13); PLATELET COUNT 108 10^3/uL (150-450); RED BLOOD COUNT 3.08 10^6/uL (4.35-5.55); RED CELL DISTRIBUTION WIDTH 12.9 % (11.5-14.0); SEGMENTED NEUTROPHILS % (AUTO) 66.5 % (42-78); TOTAL CELLS COUNTED % (AUTO) 100 %; WHITE BLOOD COUNT 4.4 10^3/uL (4.0-10.5)
[2020-09-29 07:20] LABS: ANION GAP 5 (5-19); BLOOD UREA NITROGEN 53 mg/dL (7-20); CALCIUM 8.9 mg/dL (8.4-10.2); CARBON DIOXIDE 23 mmol/L (22-30); CHLORIDE 103 mmol/L (98-107); GLUCOSE 85 mg/dL (75-110); POTASSIUM 3.7 mmol/L (3.6-5.0)
[2020-09-29] MEDS: DOCUSATE SODIUM 100 MG CAPSULE PO SCH (10:02)
[2020-09-29] MEDS: PREDNISONE 20 MG TABLET PO SCH (10:02)
[2020-09-29] MEDS: FUROSEMIDE 20 MG TABLET PO SCH (10:02)
[2020-09-29] MEDS: LISINOPRIL 10 MG TABLET PO SCH ×2 (10:03→21:39)
[2020-09-29] MEDS: MULTIVITAMIN TABLET PO SCH (10:03)
[2020-09-29] MEDS: CLOPIDOGREL BISULFATE 75 MG TABLET PO SCH (10:03)
[2020-09-29] MEDS: AMLODIPINE BESYLATE 5 MG TABLET PO SCH (10:03)
[2020-09-29] MEDS: METOPROLOL SUCCINATE 25 MG TAB.SR.24H PO SCH ×2 (10:03→21:40)
--- NOTE | 2020-09-29 12:22 | Progress Note ---
Provider Note Provider Note: CARDIOLOGY PROGRESS NOTE by Dr. Fidelina Salvador on 09/29/2020. SUBJECTIVE: The patient states he feels much better. He is able to walk around in the room without shortness of breath. He still has chronic orthopnea which is slightly improved. There is no PND. His leg edema is resolved. The patient has no anginal symptoms. There is no arrhythmias seen on the monitor. There is no TIA CVA symptoms. It is been possible to get the patient's oxygen saturation to 3 L/min by nasal cannula. With the increase in BYRON inhibitor his renal function has improved slightly. We will further increase the BYRON inhibitor. PHYSICAL EXAMINATION: The patient appears to be chronically ill in no acute distress at present. Selected Entries 09/29/20 08:13 Temperature 97.4 F Temperature Oral Source Pulse Rate 71 Respiratory 18 Rate Blood Pressure 134/42 H Blood Pressure 72 Mean BP Location Left Arm BP Position Sitting O2 Sat by Pulse 99 Oximetry Oxygen Flow 3.00 Rate Oxygen Delivery Nasal Cannula Method HEAD: Is atraumatic normocephalic. EYES: Pupils are equal round regular reactive light accommodation. Extraocular movements are normal. There is no conjunctival pallor. There is no scleral icterus. EARS: Tympanic membranes are intact. External auditory canals are clear. NOSE: There is no deviated nasal septum. There is no inflammation of the nasal mucous membrane. MOUTH: Dukas membranes of mouth are moist. Tongue is moist. There is no ulcers. THROAT: There is no redness of the oropharynx. There is no exudates. SKIN: There is no petechia or ecchymosis. There is no skin lesions there is no skin rashes. NECK: Supple. There is mild JVD present. Carotids are equal there is no bruit. There is no lymphadenopathy. There is no goiter. TRACHEA is central. There is no accessory muscles of respiration use. LUNGS: There is diminished air entry prolonged expiration with scattered rhonchi and wheezing. There are no rales of CHF. HEART: S1-S2 is heard. There is no S3 gallop. There is no S4 gallop. There is murmur of aortic regurgitation present. There is mild mitral regurgitation murmur present. There is no rub. There is no peripheral signs of aortic regurgitation. ABDOMEN: Soft. Nontender. There is no hepatosplenomeg heide. Bowel sounds are well heard. EXTREMITIES: Femorals are diminished there is bilateral femoral bruits leg pulses are diminished. There is no peripheral signs of aortic regurgitation over the femoral arteries. There is trace to mild pedal edema right lower extremity greater than left. There is no DVT or cellulitis. There is no cyanosis or clubbing. 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 PSYCHIATRIC: Patient judgment insight are intact his affect is normal. 24-hour intake is 860 mL, and 24-hour output is 1650 mL. Labs- All tests 24 hr 09/28/20 09/29/20 09/29/20 14:30 06:22 06:22 WBC 4.4 RBC 3.08 L Hgb 10.7 L Hct 30.8 L MCV 100 H MCH 34.9 H MCHC 34.9 RDW 12.9 Plt Count 108 L Lymph % (Auto) 22.9 [place] % (Auto) 9.3 Eos % (Auto) 1.0 Baso % (Auto) 0.3 Absolute Neuts (auto) 2.9 Absolute Lymphs (auto) 1.0 Absolute Monos (auto) 0.4 Absolute Eos (auto) 0.0 Absolute Basos (auto) 0.0 Seg Neutrophils % 66.5 PT 13.0 INR 0.96 APTT 44.2 H Sodium 131.4 L Potassium 3.7 Chloride 103 Carbon Dioxide 23 Anion Gap 5 BUN 53 H Creatinine 1.49 H Est GFR ( Amer) 56 L Est GFR (MDRD) Non-Af 46 L Glucose 85 Calcium 8.9 Chest X-Ray 09/26/20 16:00 IMPRESSION: No acute cardiopulmonary disease. Chronic pleural and parenchymal scarring, improved from prior. Hyperinflated lungs which can be seen with obstructive lung disease. Venous Doppler Study 09/27/20 00:00 IMPRESSION: NO EVIDENCE DVT OR SVT IN EITHER LEG. IMPRESSION/RECOMMENDATION: 1. Elevated troponin I this is secondary to supply demand mismatch due to the patient's acute exacerbation of COPD, acute on chronic systolic heart failure acute on chronic renal failure. No evidence of non-ST elevation [place]. Note that the patient has nonobstructive coronary artery disease. 2. 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 Continue beta-janet and BYRON inhibitor. Agree with diuretics for present. This at present seems to be compensated. The patient tolerating the increased dose of lisinopril 30 mg p.o. every 12 hours. The patient's blood pressure is stable with further increase the lisinopril to 40 mg p.o. every 12 hours. 3. Acute exacerbation of COPD: Continue steroids and anti-COPD treatment. This is improving 4. 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 5. Acute infective bronchitis: Continue antibiotics 6. Severe aortic regurgitation. Once stabilized patient will be referred for TAVR. 7. Nonobstructive coronary artery disease 8. Acute on chronic kidney disease: Expect this to improve with the treatment of the patient's heart failure. Avoid nephrotoxic drugs. There might be an lakeisha ment of overdiuresis. Will change to p.o. Lasix. We will increase the patient's BYRON inhibitor. Plan. Ongoing tobacco abuse: Tobacco cessation counseling given. Medication reviewed. Medication adjusted. Medical regimen management plan discussed with attending provider on the case. Medical decision making is of high complexity. 60 minutes spent as patient more than 50% time spent in direct patient care. Will follow.
--- NOTE | 2020-09-29 13:44 | PDOC PROGRESS REPORT ---
Subjective Date:: 09/29/20 Subjective:: The patient is feeling better. He is actually sitting on the edge of the bed on room air. He reports to me that Dr. Espinoza said he could go home. Unfortunately Dr. Espinoza did not seem to home benefit Dr. Espinoza is increasing his lisinopril. The patient's breathing is comfortable. We did discuss outpatient regimen. The patient has a rescue inhaler and prefers using his nebulizer instead of combination therapy. Reason For Visit: ACUTE ON CHRONIC COMBINED SYSTOLIC AND DIASTOLIC Physical Exam Vital Signs: Temp Pulse Resp BP Pulse Ox 97.5 F 68 18 131/34 H 95 09/29/20 11:27 09/29/20 11:27 09/29/20 11:27 09/29/20 11:27 09/29/20 11:27 Intake & Output 09/28/20 09/29/20 09/30/20 06:59 06:59 06:59 Intake Total 860 1829 Output Total 1650 1500 Balance -790 329 Weight 80 kg 78 kg General appearance: PRESENT: no acute distress, cooperative, well-developed Head exam: PRESENT: atraumatic, normocephalic Ear exam: PRESENT: normal external ear exam. ABSENT: bleeding, drainage Mouth exam: PRESENT: moist, tongue midline Respiratory exam: PRESENT: clear to auscultation melisa, symmetrical, unlabored. ABSENT: rales, rhonchi, tachypnea, wheezes Cardiovascular exam: PRESENT: RRR, +S1, +S2 GI/Abdominal exam: PRESENT: normal bowel sounds, soft. ABSENT: distended, guarding, tenderness Rectal exam: PRESENT: deferred Gentrourinary exam: ABSENT: indwelling catheter Extremities exam: ABSENT: pedal edema Musculoskeletal exam: PRESENT: ambulatory, normal inspection. ABSENT: d eformity, dislocation Neurological exam: PRESENT: alert, awake, oriented to person, oriented to place, oriented to time, oriented to situation, CN II-XII grossly intact. ABSENT: altered Psychiatric exam: PRESENT: appropriate affect. ABSENT: agitated, anxious Focused psych exam: ABSENT: delusional, paranoid, restlessness Results Laboratory Results: 09/29/20 06:22 09/29/20 06:22 09/29/20 09/29/20 06:22 06:22 WBC 4.4 RBC 3.08 L Hgb 10.7 L Hct 30.8 L MCV 100 H MCH 34.9 H MCHC 34.9 RDW 12.9 Plt Count 108 L Seg Neutrophils % 66.5 Sodium 131.4 L Potassium 3.7 Chloride 103 Carbon Dioxide 23 Anion Gap 5 BUN 53 H Creatinine 1.49 H Est GFR ( Amer) 56 L Glucose 85 Calcium 8.9 09/26/20 09/26/20 09/26/20 16:14 16:14 16:14 Creatine Kinase 77 CK-MB (CK-2) 11.10 H Troponin I NT-Pro-B Natriuret Pep [id number] H 09/26/20 09/27/20 09/27/20 16:14 01:42 05:30 Creatine Kinase CK-MB (CK-2) Troponin I 2.620 3.470 3.460 NT-Pro-B Natriuret Pep Impressions: Chest X-Ray 09/26/20 16:00 IMPRESSION: No acute cardiopulmonary disease. Chronic pleural and parenchymal scarring, improved from prior. Hyperinflated lungs which can be seen with obstructive lung disease. Venous Doppler Study 09/27/20 00:00 IMPRESSION: NO EVIDENCE DVT OR SVT IN EITHER LEG. Assessment and Plan - Diagnosis (1) Acute on chronic combined systolic (congestive) and diastolic (congestive) heart failure Is this a current diagnosis for this admission?: Yes (2) Acute on chronic respiratory failure with hypoxemia Is this a current diagnosis for this admission?: Yes (3) Acute exacerbation of chronic obstructive pulmonary disease (COPD) Is this a current diagnosis for this admission?: Yes (4) Bilateral lower extremity edema Is this a current diagnosis for this admission?: Yes (5) Stage 3b chronic kidney disease Is this a current diagnosis for this admission?: Yes (6) Coronary artery disease Qualifiers: Coronary Disease-Associated Artery/Lesion type: [place] artery [place] vs. transplanted heart: [place] heart Associated angina: without angina Qualified Code(s): I25.10 - Atherosclerotic heart disease of [place] coronary artery without angina pectoris Is this a current diagnosis for this admission?: Yes (7) Tobacco dependence Is this a current diagnosis for this admission?: Yes - Plan Summary Summary: (1) Acute on chronic combined systolic (congestive) and diastolic (congestive) heart failure Is this a current diagnosis for this admission?: Yes Plan: Previous echo showed EF 20% with advanced systolic and diastolic heart failure as well Repeat echocardiogram to look for worsening valvular insufficiency, may need cardiology consult IV Lasix twice daily Home cardiac medications restarted BiPAP until fluid overload resolved BNP 149,000 EKG no acute changes CK-MB elevated although ED did not draw troponin; troponin pending now (2) Acute exacerbation of chronic obstructive pulmonary disease (COPD) Is this a current diagnosis for this admission?: Yes Plan: Minimal wheezing on exam, likely CHF and COPD set each other off whenever he has respiratory failure 40 mg prednisone daily burst for 5 days Scheduled duo nebs and as needed as well BiPAP as needed Supplemental oxygen to maintain saturation 89 to 92% in the setting of COPD and CO2 retention Patient needs follow-up with pulmonology outpatient (3) Acute on chronic respiratory failure with hypoxemia Is this a current diagnosis for this admission?: Yes Plan: Multifactorial due to COPD and CHF exacerbations Treatment as above (4) Bilateral lower extremity edema Is this a current diagnosis for this admission?: Yes Plan: Both lower extremities with edema however right lower extremity significantly larger than left PVL BLE to rule out DVT (5) Stage 3b chronic kidney disease Is this a current diagnosis for this admission?: Yes Plan: Previous creatinine value typically s range between 1.2 and 1.9; current creatinine 1.6, possible some mild cardiorenal MARTHA but likely at or near his baseline Trend BMP Diuresis (6) Coronary artery disease Qualifiers: Coronary Disease-Associated Artery/Lesion type: [place] artery [place] vs. transplanted heart: [place] heart Associated angina: without angina Qualified Code(s): I25.10 - Atherosclerotic heart disease of [place] coronary artery without angina pectoris Is this a current diagnosis for this admission?: Yes Plan: No chest pain Continue cardiac medications (7) Tobacco dependence Is this a current diagnosis for this admission?: Yes Plan: Counseled on cessation, patient states he stopped smoking when he became extremely ill but otherwise smokes every day 09/27/2020 Heart failure-patient has longstanding history of severe congestive heart failure. His most recent ejection fraction actually showed improvement with an EF up to 40%. He still has grade 2/4 diastolic failure. Continue current medication regimen. His soap chipper will be seeing him later today. Acute exacerbation of COPD-the patient continues to smoke albeit he is making an effort to stop. He does not understand why he has a productive cough every morning. I explained that this is his COPD and it actually takes a long time for this to get better for a longstanding smoker. He does not take an inhaler regularly and I told him that we will initiate that therapy and this will help. Chronic renal insufficiency-continue to monitor renal function as well as intake and output Lower extremity edema-patient reports that it is actually slightly better. He does need to wear compression stockings. We will modify his medications to maximize diuresis Coronary artery disease-continue current regimen. Tobacco dependence-continue to trauma counsellor. Nicotine patch. 09/28/2020 Discontinue heparin Heart failure improved Notice improvement in his COPD. Morning cough is not as productive. Breathing feels more comfortable Continue antibiotics for probable bronchitis 09/29/2020 Patient is stable. He is actually resting at the edge of the bed on room air during this encounter. Dr. Espinoza has increased his lisinopril for his heart failure. COPD is improved. He is hardly coughing up any mucus. We discussed combination inhaler therapy. He has several inhaler sitting on the top of a shelf that he has not open. He does have a nebulizer machine and prefers to use the nebulizer machine. We also discussed Mucinex. He states he has a box of Mucinex at home that he has not touched. Coronary disease is stable. No evidence of acute coronary syndrome. Continue nicotine patch. Kidney failure-reviewed the last 2 years of work. His creatinine is about at his baseline. His GFR is just above 50. When he was admitted it was just below 50. He appears to be at his baseline for his stage IIIa chronic kidney failure. - Time Time Spent with patient: 15-24 minutes Smoking Cessation Education: 3 to 10 minutes Medications reviewed and adjusted accordingly: Yes Anticipated Discharge Disposition: Home with Home Health Anticipated Discharge Timeframe: within 48 hours
[2020-09-29] MEDS: LEVOFLOXACIN 500 MG TABLET PO SCH (21:39)
[2020-09-30] MEDS: IPRATROPIUM/ALBUTEROL 0.5-2.5 MG/3 ML AMPUL NEB SCH ×3 (01:56→13:49)
[2020-09-30 09:45] LABS: APPEARANCE,URINE CLEAR; BILIRUBIN,URINE NEGATIVE (NEGATIVE); COLOR,URINE STRAW; GLUCOSE, URINE NEGATIVE (NEGATIVE); KETONES,URINE NEGATIVE (NEGATIVE); LEUKOCYTE ESTERASE,URINE NEGATIVE (NEGATIVE); NITRITE,URINE NEGATIVE (NEGATIVE); PROTEIN,URINE 100 mg/dL (NEGATIVE); URINE SPECIFIC GRAVITY 1.006; UROBILINOGEN,URINE NEGATIVE mg/dL (<2.0)
[2020-09-30] MEDS: METOPROLOL SUCCINATE 25 MG TAB.SR.24H PO SCH (10:27)
[2020-09-30] MEDS: DOCUSATE SODIUM 100 MG CAPSULE PO SCH (10:27)
[2020-09-30] MEDS: PREDNISONE 20 MG TABLET PO SCH (10:27)
[2020-09-30] MEDS: MULTIVITAMIN TABLET PO SCH (10:27)
[2020-09-30] MEDS: FUROSEMIDE 20 MG TABLET PO SCH (10:27)
[2020-09-30] MEDS: CLOPIDOGREL BISULFATE 75 MG TABLET PO SCH (10:27)
[2020-09-30] MEDS: AMLODIPINE BESYLATE 5 MG TABLET PO SCH (10:27)
[2020-09-30] MEDS: LISINOPRIL 10 MG TABLET PO SCH (10:28)
--- NOTE | 2020-09-30 13:37 | PDOC DISCHARGE SUMMARY ---
Impression - Admit/DC Date/PCP Admission Date/Primary Care Provider: 09/26/20 22:13 Discharge Date: 09/30/20 - Discharge Diagnosis (1) Acute on chronic combined systolic (congestive) and diastolic (congestive) heart failure Is this a current diagnosis for this admission?: Yes (2) Acute on chronic respiratory failure with hypoxemia Is this a current diagnosis for this admission?: Yes (3) Acute exacerbation of chronic obstructive pulmonary disease (COPD) Is this a current diagnosis for this admission?: Yes (4) Bilateral lower extremity edema Is this a current diagnosis for this admission?: Yes (5) Stage 3b chronic kidney disease Is this a current diagnosis for this admission?: Yes (6) Coronary artery disease Is this a current diagnosis for this admission?: Yes (7) Tobacco dependence Is this a current diagnosis for this admission?: Yes - Assessment Summary: (1) Acute on chronic combined systolic (congestive) and diastolic (congestive) heart failure Is this a current diagnosis for this admission?: Yes Plan: Previous echo showed EF 20% with advanced systolic and diastolic heart failure as well Repeat echocardiogram to look for worsening valvular insufficiency, may need cardiology consult IV Lasix twice daily Home cardiac medications restarted BiPAP until fluid overload resolved BNP 149,000 EKG no acute changes CK-MB elevated although ED did not draw troponin; troponin pending now (2) Acute exacerbation of chronic obstructive pulmonary disease (COPD) Is this a current diagnosis for this admission?: Yes Plan: Minimal wheezing on exam, likely CHF and COPD set each other off whenever he has respiratory failure 40 mg prednisone daily burst for 5 days Scheduled duo nebs and as needed as well BiPAP as needed Supplemental oxygen to maintain saturation 89 to 92% in the setting of COPD and CO2 retention Patient needs follow-up with pulmonology outpatient (3) Acute on chronic respiratory failure with hypoxemia Is this a current diagnosis for this admission?: Yes Plan: Multifactorial due to COPD and CHF exacerbations Treatment as above (4) Bilateral lower extremity edema Is this a current diagnosis for this admission?: Yes Plan: Both lower extremities with edema however right lower extremity significantly larger than left PVL BLE to rule out DVT (5) Stage 3b chronic kidney disease Is this a current diagnosis for this admission?: Yes Plan: Previous creatinine value typically s range between 1.2 and 1.9; current creatinine 1.6, possible some mild cardiorenal MARTHA but likely at or near his baseline Trend BMP Diuresis (6) Coronary artery disease Qualifiers: Coronary Disease-Associated Artery/Lesion type: [place] artery [place] vs. transplanted heart: [place] heart Associated angina: without angina Qualified Code(s): I25.10 - Atherosclerotic heart disease of [place] coronary artery without angina pectoris Is this a current diagnosis for this admission?: Yes Plan: No chest pain Continue cardiac medications (7) Tobacco dependence Is this a current diagnosis for this admission?: Yes Plan: Counseled on cessation, patient states he stopped smoking when he became extremely ill but otherwise smokes every day 09/27/2020 Heart failure-patient has longstanding history of severe congestive heart failure. His most recent ejection fraction actually showed improvement with an EF up to 40%. He still has grade 2/4 diastolic failure. Continue current medication regimen. His racecar driver will be seeing him later today. Acute exacerbation of COPD-the patient continues to smoke albeit he is making an effort to stop. He does not understand why he has a productive cough every morning. I explained that this is his COPD and it actually takes a long time for this to get better for a longstanding smoker. He does not take an inhaler regularly and I told him that we will initiate that therapy and this will help. Chronic renal insufficiency-continue to monitor renal function as well as intake and output Lower extremity edema-patient reports that it is actually slightly better. He does need to wear compression stockings. We will modify his medications to maximize diuresis Coronary artery disease-continue current regimen. Tobacco dependence-continue to counselor aide. Nicotine patch. 09/28/2020 Discontinue heparin Heart failure improved Notice improvement in his COPD. Morning cough is not as productive. Breathing feels more comfortable Continue antibiotics for probable bronchitis 09/29/2020 Patient is stable. He is actually resting at the edge of the bed on room air d uring this encounter. Dr. Espinoza has increased his lisinopril for his heart failure. COPD is improved. He is hardly coughing up any mucus. We discussed combination inhaler therapy. He has several inhaler sitting on the top of a shelf that he has not open. He does have a nebulizer machine and prefers to use the nebulizer machine. We also discussed Mucinex. He states he has a box of Mucinex at home that he has not touched. Coronary disease is stable. No evidence of acute coronary syndrome. Continue nicotine patch. Kidney failure-reviewed the last 2 years of work. His creatinine is about at his baseline. His GFR is just above 50. When he was admitted it was just below 50. He appears to be at his baseline for his stage IIIa chronic kidney failure. 09/30/[address] Espinoza and patient is cleared for discharge. He will continue increased dose of lisinopril as an outpatient. He prefers nebulizer treatments to scheduled inhalers and so I did provide a prescription for DuoNeb single dose vials. - Additional Information Resuscitation Status: Full Code Discharge Diet: Cardiac Discharge Activity: Activity As Tolerated, Balance Activity w/Rest, Energy Conservation, Weigh Daily Referrals: DEBBI KEMP MD [ACTIVE PROVISIONAL STAFF] - 10/08/20 9:00 am ([facility]ORS[facility] OFFICE WILL CONTACT THE PATIENT WITH THE FOLLOW UP APPT) SHANELL BEE MD [NO LOCAL MD] - 10/07/20 9:00 am Prescriptions: Prednisone [Deltasone 10 mg Tablet] 10 mg PO ASDIR #21 tablet Ipratropium/Albuterol Sulfate [Duoneb 3 ml Ampul] 3 ml NEB RTQ6 #120 vial.neb Furosemide [Lasix 20 mg Tablet] 20 mg PO DAILY #30 tablet Levofloxacin [Levaquin 500 mg Tablet] 500 mg PO QHS #2 tablet Lisinopril [Zestril] 40 mg PO Q12 #60 tablet Home Medications: Clopidogrel Bisulfate [Plavix 75 mg Tablet] 75 mg PO DAILY #30 tablet 03/17/20 Albuterol Sulfate [Ventolin Hfa 8 gm Mdi (1 Mdi/ER Disp)] 2 puff IH Q4HP PRN 08/06/20 Amlodipine Besylate [Norvasc 5 mg Tablet] 5 mg PO DAILY 08/06/20 Multivitamin [Multivitamins] 1 cap PO DAILY 08/06/20 Metoprolol Succinate [Toprol Xl 25 mg Tab.sr] 25 mg PO Q12 08/13/20 Docusate Sodium [Colace 100 mg Capsule] 100 mg PO DAILY capsule 09/30/20 Furosemide [Lasix 20 mg Tablet] 20 mg PO DAILY #30 tablet 09/30/20 Ipratropium/Albuterol Sulfate [Duoneb 3 ml Ampul] 3 ml NEB RTQ6 #120 vial.neb 09/30/20 Levofloxacin [Levaquin 500 mg Tablet] 500 mg PO QHS #2 tablet 09/30/20 Lisinopril [Zestril] 40 mg PO Q12 #60 tablet 09/30/20 Prednisone [Deltasone 10 mg Tablet] 10 mg PO ASDIR #21 tablet 09/30/20 History of Present Illiness History of Present Illness: GERONIMO BROWN is a 70 year old male with past medical history significant for combined systolic and diastolic CHF, COPD, ongoing tobacco abuse, CKD 3B, hypertension, CAD who presents to the ED via EMS for 2-day history of progressive shortness of breath/IBANEZ/orthopnea which was unresponsive to home medications. Patient denies any fever/chills/nausea/vomiting/diarrhea/abdominal pain/sick contacts/COVID-19 exposure. He denies running out of any of his medications. Per ED, EMS gave the patient racemic epi, Solu-Medrol, magnesium and placed the patient on BiPAP. His CO2 on ABG in the field reportedly was in the 50s and then after admission it was rechecked on BiPAP and was in the high 20s. Patient has a very mild amount of wheezing and overall does not move air very much in general. His lower extremities have +1 to +2 pitting edema but his right leg seems to be significantly worse than his left. He denies any pain in his legs. Patient's recent echocardiogram showed an EF of approximately 20% and patient notes being seen by his racecar driver recently who told him he has valvular insufficiency that requires interventional cardiology referral however the patient states this referral was never made. Patient be admitted to IMCU on BiPAP, n.p.o. while he is using BiPAP, echocardiogram ordered, PVL lower extremities to rule out DVT/PE, IV Lasix, prednisone burst for 5 days, nebulizer treatments, supplemental oxygen, bronchial hygiene. Hospital Course Hospital Course: See above Physical Exam Vital Signs: Temp Pulse Resp BP Pulse Ox 97.6 F 65 18 145/45 H 99 09/30/20 11:50 09/30/20 11:50 09/30/20 11:50 09/30/20 11:50 09/30/20 11:50 Intake & Output 09/29/20 09/30/20 10/01/20 06:59 06:59 06:59 Intake Total 1829 2321 720 Output Total 1500 Balance 329 2321 720 Weight 78 kg 79.6 kg General appearance: PRESENT: no acute distress Respiratory exam: PRESENT: clear to auscultation melisa, symmetrical, unlabored. ABSENT: rales, rhonchi, tachypnea, wheezes Cardiovascular exam: PRESENT: RRR, +S1, +S2 GI/Abdominal exam: PRESENT: normal bowel sounds, soft. ABSENT: tenderness Neurological exam: PRESENT: alert, awake, oriented to person, oriented to place, oriented to time, oriented to situation. ABSENT: altered Focused psych exam: ABSENT: delusional, paranoid, restlessness Results Laboratory Results: WBC 4.4 10^3/uL (4.0-10.5) 09/29/20 06:22 RBC 3.08 10^6/uL (4.35-5.55) L 09/29/20 06:22 Hgb 10.7 g/dL (13.5-17.0) L 09/29/20 06:22 Hct 30.8 % (37.9-51.0) L 09/29/20 06:22 MCV 100 fl (80-97) H 09/29/20 06:22 MCH 34.9 pg (27.0-33.4) H 09/29/20 06:22 MCHC 34.9 g/dL (32.0-36.0) 09/29/20 06:22 RDW 12.9 % (11.5-14.0) 09/29/20 06:22 Plt Count 108 10^3/uL (150-450) L 09/29/20 06:22 Lymph % (Auto) 22.9 % (13-45) 09/29/20 06:22 Stone % (Auto) 9.3 % (3-13) 09/29/20 06:22 Eos % (Auto) 1.0 % (0-6) 09/29/20 06:22 Baso % (Auto) 0.3 % (0-2) 09/29/20 06:22 Absolute Neuts (auto) 2.9 10^3/uL (1.7-8.2) 09/29/20 06:22 Absolute Lymphs (auto) 1.0 10^3/uL (0.5-4.7) 09/29/20 06:22 Absolute Monos (auto) 0.4 10^3/uL (0.1-1.4) 09/29/20 06:22 Absolute Eos (auto) 0.0 10^3/uL (0.0-0.6) 09/29/20 06:22 Absolute Basos (auto) 0.0 10^3/uL (0.0-0.2) 09/29/20 06:22 Seg Neutrophils % 66.5 % (42-78) 09/29/20 06:22 PT 13.0 SEC (11.4-15.4) 09/28/20 14:30 INR 0.96 09/28/20 14:30 APTT 44.2 SEC (23.5-35.8) H 09/28/20 14:30 Carbonic Acid 0.85 mmol/L (1.05-1.35) L 09/26/20 19:00 HCO3/H2CO3 Ratio 19:1 09/26/20 19:00 ABG pH 7.39 (7.35-7.45) 09/26/20 19:00 ABG pCO2 28.1 mmHg (35-45) L 09/26/20 19:00 ABG pO2 112.4 mmHg (80-100) H 09/26/20 19:00 ABG HCO3 16.6 mmol/L (20-24) L 09/26/20 19:00 ABG Total CO2 17.5 mmol/L (23-27) L 09/26/20 19:00 ABG O2 Saturation 98.1 % (94-98) H 09/26/20 19:00 ABG Base Excess -7.0 mmol/L 09/26/20 19:00 FiO2 30% 09/26/20 19:00 Sodium 131.4 mmol/L (137-145) L 09/29/20 06:22 Potassium 3.7 mmol/L (3.6-5.0) 09/29/20 06:22 Chloride 103 mmol/L (98-107) 09/29/20 06:22 Carbon Dioxide 23 mmol/L (22-30) 09/29/20 06:22 Anion Gap 5 (5-19) 09/29/20 06:22 BUN 53 mg/dL (7-20) H 09/29/20 06:22 Creatinine 1.49 mg/dL (0.52-1.25) H 09/29/20 06:22 Est GFR ( Amer) 56 (>60) L 09/29/20 06:22 Est GFR (MDRD) Non-Af 46 (>60) L 09/29/20 06:22 Glucose 85 mg/dL (75-110) 09/29/20 06:22 Calcium 8.9 mg/dL (8.4-10.2) 09/29/20 06:22 Phosphorus 4.7 mg/dL (2.5-4.5) H 09/27/20 05:30 Magnesium 2.7 mg/dL (1.6-2.3) H 09/27/20 05:30 Total Bilirubin 1.3 mg/dL (0.2-1.3) 09/26/20 16:14 Direct Bilirubin 0.2 mg/dL (0.0-0.4) 09/26/20 16:14 Neonat Total Bilirubin Not Reportable 09/26/20 16:14 Neonat Direct Bilirubin Not Reportable 09/26/20 16:14 Neonat Indirect Bili Not Reportable 09/26/20 16:14 AST 45 U/L (17-59) 09/26/20 16:14 ALT 20 U/L (<50) 09/26/20 16:14 Alkaline Phosphatase 91 U/L (38-126) 09/26/20 16:14 Creatine Kinase 77 U/L (55-170) 09/26/20 16:14 CK-MB (CK-2) 11.10 ng/mL (<4.55) H 09/26/20 16:14 Troponin I 3.460 ng/mL 09/27/20 05:30 NT-Pro-B Natriuret Pep 720613 pg/mL (<125) H 09/26/20 16:14 Total Protein 7.1 g/dL (6.3-8.2) 09/26/20 16:14 Albumin 4.0 g/dL (3.5-5.0) 09/26/20 16:14 Urine Color STRAW 09/30/20 07:00 Urine Appearance CLEAR 09/30/20 07:00 Urine pH 7.0 (5.0-9.0) 09/30/20 07:00 Ur Specific [place] 1.006 09/30/20 07:00 Urine Protein 100 mg/dL (NEGATIVE) H 09/30/20 07:00 Urine Glucose (UA) NEGATIVE mg/dL (NEGATIVE) 09/30/20 07:00 Urine Ketones NEGATIVE mg/dL (NEGATIVE) 09/30/20 07:00 Urine Blood NEGATIVE (NEGATIVE) 09/30/20 07:00 Urine Nitrite NEGATIVE (NEGATIVE) 09/30/20 07:00 Urine Bilirubin NEGATIVE (NEGATIVE) 09/30/20 07:00 Urine Urobilinogen NEGATIVE mg/dL (<2.0) 09/30/20 07:00 Ur Leukocyte Esterase NEGATIVE (NEGATIVE) 09/30/20 07:00 Urine WBC (Auto) 0 /HPF 09/30/20 07:00 Urine RBC (Auto) 0 /HPF 09/27/20 19:55 U Hyaline Cast (Auto) 8 /LPF 09/27/20 19:55 Squamous Epi Cells Auto <1 /HPF 09/27/20 19:55 Urine Mucus (Auto) RARE /LPF 09/27/20 19:55 Urine Ascorbic Acid NEGATIVE (NEGATIVE) 09/30/20 07:00 09/26/20 09/26/20 09/26/20 16:14 16:14 16:14 CK-MB (CK-2) 11.10 H Troponin I 2.620 NT-Pro-B Natriuret Pep [id number] H 09/27/20 09/27/20 01:42 05:30 CK-MB (CK-2) Troponin I 3.470 3.460 NT-Pro-B Natriuret Pep Impressions: Chest X-Ray 09/26/20 16:00 IMPRESSION: No acute cardiopulmonary disease. Chronic pleural and parenchymal scarring, improved from prior. Hyperinflated lungs which can be seen with obstructive lung disease. Venous Doppler Study 09/27/20 00:00 IMPRESSION: NO EVIDENCE DVT OR SVT IN EITHER LEG. Plan Health Concerns: Severe COPD with combined systolic and diastolic heart failure Plan of Treatment: Patient needs to cease all forms of tobacco without exception. Once stable Dr. Espinoza is planning to refer him for possible TAVR Goals: Complete cessation of tobacco products. Maintenance of good respiratory treatments. Medication compliance. Time Spent: Greater than 30 Minutes Stroke Is this a Stroke Patient?: No Acute Heart Failure Is this a Heart Failure Patient?: Yes Documentation of LVEF assessment?: Yes LVEF: LVEF Less Than or Equal to 40% Anticoagulant Therapy: No, document contraindications Reason(s) not Discharged on Anticoagulant Therapy: Other Anticoagulant Therapy Reason - Other: History of poor compliance Discharged on Evidence-Based Beta Blockers: Yes Discharged on ARNI?: No-Document Contraindications Reason(s) not discharged on ARNI: Impaired/worsening renal functions Discharged on ARB?: No-document contraindications Reason(s) not Discharged on ARB: Other ARB Reason - Other: Discharged on BYRON inhibitor Discharged on ACEI?: Yes For LVEF <35%, discharged on Aldosterone Antagonist?: N/A (LVEF > or = 35%) Follow-up Appointment scheduled within 7 days?: Yes
[2020-09-30 13:59] VITALS: BP 159/42
--- NOTE | 2020-09-30 19:12 | Progress Note ---
Provider Note Provider Note: CARDIOLOGY PROGRESS NOTE by Dr. Fidelina Rosas on 09/30/2020. Subjective: The patient denies any shortness of breath at rest or while walking in the room. He has chronic 1 pillow orthopnea. There is no chest pain or discomfort. There is no PND orthopnea or leg edema. There is no anginal symptoms. There is no arrhythmias seen on the monitor. The patient is anxious to go home. He denies any further cough or sputum production. There is no wheezing. PHYSICAL EXAMINATION: The patient appears to be chronically ill. In no acute distress Selected Entries 09/30/20 09/30/20 13:48 13:50 Temperature 97.6 F Pulse Rate 65 Respiratory 18 Rate Blood Pressure 159/42 H [Right Upper Arm] O2 Sat by Pulse 98 Oximetry Fraction of 24 Inspired Oxygen (FIO2) Oxygen Flow 1 Rate HEAD: Is atraumatic normocephalic. EYES: Pupils are equal round regular reac tive light accommodation. Extraocular movements are normal. There is no conjunctival pallor. There is no scleral icterus. EARS: Tympanic membranes are intact. External auditory canals are clear. NOSE: There is no deviated nasal septum. There is no inflammation of the nasal mucous membrane. MOUTH: Dukas membranes of mouth are moist. Tongue is moist. There is no ulcers. THROAT: There is no redness of the oropharynx. There is no exudates. SKIN: There is no petechia or ecchymosis. There is no skin lesions there is no skin rashes. NECK: Supple. There is mild JVD present. Carotids are equal there is no bruit. There is no lymphadenopathy. There is no goiter. TRACHEA is central. There is no accessory muscles of respiration use. LUNGS: There is diminished air entry prolonged expiration with scattered rhonchi and wheezing. There are no rales of CHF. HEART: S1-S2 is heard. There is no S3 gallop. There is no S4 gallop. There is murmur of aortic regurgitation present. There is mild mitral regurgitation murmur present. There is no rub. There is no peripheral signs of aortic regurgitation. ABDOMEN: Soft. Nontender. There is no hepatosplenomegaly. Bowel sounds are well heard. EXTREMITIES: Femorals are diminished there is bilateral femoral bruits leg pulses are diminished. There is no peripheral signs of aortic regurgitation over the femoral arteries. There is trace to mild pedal edema right lower extremity greater than left. There is no DVT or cellulitis. There is no cyanosis or clubbing. COMPUTER SCIENCE INTERN: The patient is conscious awake alert oriented x3 with no focal deficits. PSYCHIATRIC: Patient judgment insight are intact his affect is normal. The patient is a 24-hour intake and output today has not been recorded. Labs- All tests 24 hr 09/30/20 07:00 Urine Color STRAW Urine Appearance CLEAR Urine pH 7.0 Ur Specific [place] 1.006 Urine Protein 100 H Urine Glucose (UA) NEGATIVE Urine Ketones NEGATIVE Urine Blood NEGATIVE Urine Nitrite NEGATIVE Urine Bilirubin NEGATIVE Urine Urobilinogen NEGATIVE Ur Leukocyte Esterase NEGATIVE Urine WBC (Auto) 0 Urine Ascorbic Acid NEGATIVE Chest X-Ray 09/26/20 16:00 IMPRESSION: No acute cardiopulmonary disease. Chronic pleural and parenchymal scarring, improved from prior. Hyperinflated lungs which can be seen with obstructive lung disease. Venous Doppler Study 09/27/20 00:00 IMPRESSION: NO EVIDENCE DVT OR SVT IN EITHER LEG. IMPRESSION/RECOMMENDATION: 1. Elevated troponin I this is secondary to supply demand mismatch due to the patient's acute exacerbation of COPD, acute on chronic systolic heart failure acute on chronic renal failure. No evidence of non-ST elevation [place]. Note that the patient has nonobstructive coronary artery disease. 2. 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 Continue beta-janet and BYRON inhibitor. Agree with diuretics for present. This at present seems to be compensated. The patient tolerating the increased dose of lisinopril 30 mg p.o. every 12 hours. The patient's blood pressure is stable with further increase the lisinopril to 40 mg p.o. every 12 hours. 3. Acute exacerbation of COPD: Continue steroids and anti-COPD treatment. This is improving 4. 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 5. Acute infective bronchitis: Continue antibiotics 6. Severe aortic regurgitation. Once stabilized patient will be referred for TAVR. 7. Nonobstructive coronary artery disease 8. Acute on chronic kidney disease: Expect this to improve with the treatment of the patient's heart failure. Avoid nephrotoxic drugs. There might be an element of overdiuresis. Will change to p.o. Lasix. We will increase the patient's BYRON inhibitor. Plan. Ongoing tobacco abuse: Tobacco cessation counseling given. Medication reviewed. Medication adjusted. Medical regimen management plan discussed with attending provider on the case. Medical decision making is of high complexity. 60 minutes spent as patient more than 50% time spent in direct patient care. Will sign off patient will be seen in the office and referred for TAVR to [facility].
== END 2020-09-30 16:09 | disposition home or self-care (01) | DRG 291 ==
LOC: ER 15:58 → EH 22:13 → 5 09-27 00:56
PROVIDERS: ADMIT Internal Medicine; ATTEND Hospitalist
PROC: 5A09457 Assistance with Respiratory Ventilation, 24-96 Consecutive Hours, Continuous Positive Airway Pressure (ICD-10-PCS; principal; 2020-09-26)
DX: I13.0 Hypertensive heart and chronic kidney disease with heart failure and stage 1 through stage 4 chronic kidney disease, or unspecified chronic kidney disease (principal); I50.43 Acute on chronic combined systolic (congestive) and diastolic (congestive) heart failure; J96.21 Acute and chronic respiratory failure with hypoxia; J44.1 Chronic obstructive pulmonary disease with (acute) exacerbation; F17.210 Nicotine dependence, cigarettes, uncomplicated; I25.10 Atherosclerotic heart disease of native coronary artery without angina pectoris; I42.9 Cardiomyopathy, unspecified; R79.89 Other specified abnormal findings of blood chemistry; I35.1 Nonrheumatic aortic (valve) insufficiency; N18.32 Chronic kidney disease, stage 3b; I25.2 Old myocardial infarction; Z90.49 Acquired absence of other specified parts of digestive tract; Z85.038 Personal history of other malignant neoplasm of large intestine
CPT/HCPCS: 36415; 36600; 71045; 80048; 80053; 81001; 82550; 82553; 82803; 83735; 83880; 84100; 84484; 85025; 85610; 85730; 93005; 93010; 93970; 94660; 96374; 99285; J1644; J1940; J7512